=== PATIENT | female | born 1960 | race Caucasian/White ===

== ENCOUNTER → 2016-08-11 | Outpatient (CLI) | payer BC ==
[~2016-08-11] MED LIST: ACET-1256 PO; AGMUDL4005 PO; ASPEC325 PO; BETABLOCKER PO; CEPH500C PO; CHOL20009 PO; DABI150C PO; DILT120C68 PO; DOXY100C76 PO; METO100T14 PO; SULF800T23 PO; TRAM-10 PO
--- NOTE | 2016-08-12 14:33 | MAMMOGRAPHY REPORT ---
BILATERAL DIGITAL SCREENING MAMMOGRAM TOMOSYNTHESIS WITH CAD: 08/11/2016 CLINICAL HISTORY: Routine screening. Patient has no complaints. TECHNIQUE: Breast tomosynthesis in addition to standard 2D mammography was performed. Current study was also evaluated with a Computer Aided Detection (CAD) system. COMPARISON: Comparison is made to exams dated: 08/08/2015 mammogram, 08/06/2014 mammogram, 03/22/2013 mammogram, 03/18/2012 mammogram, 03/04/2010 mammogram, and 02/26/2009 mammogram - [facility]. BREAST COMPOSITION: The tissue of both breasts is almost entirely fatty. FINDINGS: No suspicious mass, architectural distortion or cluster of microcalcifications is seen. IMPRESSION: ACR BI-RADS CATEGORY 1: NEGATIVE There is no mammographic evidence of malignancy. A 1 year screening mammogram is recommended. The p atient will receive written notification of the results. Approximately 10% of breast cancers are not detected with mammography. A negative mammographic repor t should not delay biopsy if a clinically suggestive mass is present. Homa alcala/karen:08/11/2016 17:54:57 Case Packer And Sealer: Emma Rainey, [facility] letter sent: Normal 1/2 BI-RADS Code: ACR BI-RADS Category 1: Negative
== END | disposition home or self-care (01) ==
LOC: C.MAMM 10:09
PROVIDERS: ATTEND Obstetrics & Gynecology
DX: Z12.31 Encounter for screening mammogram for malignant neoplasm of breast (principal)

== ENCOUNTER 2016-12-30 10:47 | Emergency (ER) | payer BC ==
[~2016-12-30] VITALS: Ht 165.1 cm; Wt 141.1 kg
[~2016-12-30 10:47] MED LIST changes: -ACET-1256 PO; -AGMUDL4005 PO; -CEPH500C PO; -CHOL20009 PO; -DABI150C PO; -DILT120C68 PO; -DOXY100C76 PO; -METO100T14 PO; -SULF800T23 PO; -TRAM-10 PO
[2016-12-30 10:49] VITALS: TEMP 37.2; Ht 165.1 cm; Wt 141.1 kg
[2016-12-30 12:02] LABS: BASO % 0.1 %; BASO ABS # 0.01 K/uL (0-0.2); COMPLETE YES; EOS % 0.2 %; HEMATOCRIT 41.4 % (37-47); IG% 0.2 %; LYMPH % 7.8 %; LYMPH ABS # 0.67 K/uL (1.2-3.4); MEAN CORPUSCULAR HEMOGLOBIN 31.2 pg (25-34); MEAN CORPUSCULAR HGB CONC 33.6 g/dl (32-36); MEAN PLATELET VOLUME 9.8 fL (7.4-10.4); MONO % 7.6 %; NEUT % 84.1 %; PLATELET COUNT 206 K/uL (130-400); RED BLOOD COUNT 4.45 M/uL (4.2-5.4); WHITE BLOOD COUNT 8.58 K/uL (4.8-10.8)
[2016-12-30] MEDS ORDERED: ACET-1256 PO (12:06)
[2016-12-30] MEDS ORDERED: DILT120C68 PO (12:06)
[2016-12-30] MEDS ORDERED: METO100T14 PO (12:06)
[2016-12-30] MEDS ORDERED: DABI150C PO (12:06)
[2016-12-30] MEDS ORDERED: CHOL20009 PO (12:06)
[2016-12-30 12:13] LABS: INR 1.1 (0.9-1.1); PARTIAL THROMBOPLASTIN RATIO 1.2; PROTHROMBIN TIME (PATIENT) 11.8 SECONDS (9.0-12.0)
[2016-12-30 12:21] LABS: BUN/CREATININE RATIO 17.4 (10-20); CALCIUM 8.9 mg/dl (8.5-10.1); CREATININE 0.86 mg/dl (0.60-1.20); POTASSIUM 4.4 mmol/L (3.5-5.1)
--- NOTE | 2016-12-30 12:40 | DIAGNOSTIC IMAGING REPORT ---
LEFT LOWER EXTREMITY VENOUS DOPPLER HISTORY: left leg pain, swelling COMPARISON STUDY: None. FINDINGS: There is normal compressibility, flow, and augmentation within the visualized left lower extremity deep venous system. Of note, the calf vessels were not well visualized due to the patient's body habitus. A 3.6 x 1.8 x 1.2 cm popliteal cyst. IMPRESSION: No DVT within the visualized left lower extremity. Of note, the left calf vessels were not well visualized. Electronically signed by: Ajay Rodriguez M.D. 12/30/2016 12:39 PM Dictated Date/Time: 12/30/2016 12:38 PM
[2016-12-30 13:01] VITALS: BP 162/78; PULSE 90; O2SAT 98
[2016-12-30] MEDS ORDERED: CEPH500C PO (13:16)
[2016-12-30] MEDS ORDERED: SULF800T23 PO (13:16)
--- NOTE | 2016-12-30 13:16 | EMERGENCY ROOM VISIT NOTE ---
History First contact with patient: 11:33 Chief Complaint: LEG PAIN,LEG INJURY Stated Complaint: LEFT LEG PAIN History of Present Illness The patient is a 56 year old female who presents to the Emergency Room with complaints of left leg pain and swelling. The patient states that she has had pain, swelling and redness in her left lower leg since yesterday morning. She describes the pain as a burning sensation and states the leg is sore to touch. She typically has swelling in both of the legs due to lymphedema. She now has redness in the left leg which is new for her. She has a history of cellulitis and states this does feel similar. She was seen by [facility] and sent here to rule out DVT. She rates her discomfort an 8/10. She denies any chest pain, shortness of breath, fevers or chills. The patient denies any history of blood clots. She does not smoke. She denies recent travel or surgeries. She does take Pradaxa. Review of Systems A complete 10 point review of systems was reviewed with the patient with pertinent positives and negatives as per history of present illness. All else were negative. Social History Smoking Status: Never Smoker Alcohol Use: occasionally Drug Use: none Marital Status: single Occupation Status: employed Current/Historical Medications Scheduled Acetaminophen (Tylenol), 1,000 MG PO UD Cephalexin Monohydrate (Keflex), 500 MG PO QID Cholecalciferol (Vitamin D), 1 TAB PO HS Dabigatran Etexilate Mesylate (Pradaxa), 150 MG PO BID Diltiazem Hcl Ext Rel (Tiazac), 120 MG PO QAM Metoprolol Tartrate (Lopressor) (Lopressor), 100 MG PO BID Sulfa/Trimethoprim (Bactrim Ds 800MG/160MG), 1 TAB PO BID Physical Exam Vital Signs Date Time Temp Pulse Resp B/P (MAP) Pulse Ox O2 Delivery O2 Flow Rate FiO2 12/30/16 13:01 90 18 162/78 98 Room Air 12/30/16 10:49 37.2 91 18 155/100 96 Room Air Physical Exam VITALS: Vitals are noted on the nurse's note and reviewed by myself. Vital signs stable. GENERAL: This is a 56-year-old female, in no acute distress, nondiaphoretic, well-developed well-nourished. SKIN: Capillary refill less than 2 seconds. HEART: Regular rate and rhythm without murmurs gallops or rubs. LUNGS: Clear to auscultation bilaterally without wheezes, rales or rhonchi. No retractions or accessory muscle use. EXTREMITIES: There is moderate nonpitting edema to bilateral lower legs. There is erythema of the medial aspect of the left lower leg which is slightly warm to touch. No palpable cords. NEURO: Patient was alert and oriented to person place and time. Normal sensation to light and sharp touch. Medical Decision & Procedures ER Provider Diagnostic Interpretation: LEFT LOWER EXTREMITY VENOUS DOPPLER HISTORY: left leg pain, swelling COMPARISON STUDY: None. FINDINGS: There is normal compressibility, flow, and augmentation within the visualized left lower extremity deep venous system. Of note, the calf vessels were not well visualized due to the patient's body habitus. A 3.6 x 1.8 x 1.2 cm popliteal cyst. IMPRESSION: No DVT within the visualized left lower extremity. Of note, the left calf vessels were not well visualized. Laboratory Results 12/30/16 11:27 Red Blood Count 4.45, Mean Corpuscular Volume 93.0, Mean Corpuscular Hemoglobin 31.2, Mean Corpuscular Hemoglobin Concent 33.6, Mean Platelet Volume 9.8, Neutrophils (%) (Auto) 84.1, Lymphocytes (%) (Auto) 7.8, Monocytes (%) (Auto) 7.6, Eosinophils (%) (Auto) 0.2, Basophils (%) (Auto) 0.1, Neutrophils # (Auto) 7.21, Lymphocytes # (Auto) 0.67, Monocytes # (Auto) 0.65, Eosinophils # (Auto) 0.02, Basophils # (Auto) 0.01 12/30/16 11:27 Test 12/30/16 11:27 White Blood Count 8.58 K/uL (4.8-10.8) Red Blood Count 4.45 M/uL (4.2-5.4) Hemoglobin 13.9 g/dL (12.0-16.0) Hematocrit 41.4 % (37-47) Mean Corpuscular Volume 93.0 fL (80-100) Mean Corpuscular Hemoglobin 31.2 pg (25-34) Mean Corpuscular Hemoglobin Concent 33.6 g/dl (32-36) Platelet Count 206 K/uL (130-400) Mean Platelet Volume 9.8 fL (7.4-10.4) Neutrophils (%) (Auto) 84.1 % Lymphocytes (%) (Auto) 7.8 % Monocytes (%) (Auto) 7.6 % Eosinophils (%) (Auto) 0.2 % Basophils (%) (Auto) 0.1 % Neutrophils # (Auto) 7.21 K/uL (1.4-6.5) Lymphocytes # (Auto) 0.67 K/uL (1.2-3.4) Monocytes # (Auto) 0.65 K/uL (0.11-0.59) Eosinophils # (Auto) 0.02 K/uL (0-0.5) Basophils # (Auto) 0.01 K/uL (0-0.2) RDW Standard Deviation 43.3 fL (36.4-46.3) RDW Coefficient of Variation 12.8 % (11.5-14.5) Immature Granulocyte % (Auto) 0.2 % Immature Granulocyte # (Auto) 0.02 K/uL (0.00-0.02) Prothrombin Time 11.8 SECONDS (9.0-12.0) Prothromb Time International Ratio 1.1 (0.9-1.1) Activated Partial Thromboplast Time 31.2 SECONDS (21.0-31.0) Partial Thromboplastin Ratio 1.2 Anion Gap 5.0 mmol/L (3-11) Est Creatinine Clear Calc Drug Dose 102.0 ml/min Estimated GFR () 86.3 Estimated GFR (Non- 74.5 BUN/Creatinine Ratio 17.4 (10-20) Calcium Level 8.9 mg/dl (8.5-10.1) Chemistry Specimen Hemolysis Medical Decision Differential diagnosis includes DVT, superficial thrombosis, cellulitis, venous insufficiency, among others. The patient is a 56-year-old female who presents today complaining of left leg pain and redness. Labs revealed no leukocytosis. Ultrasound of the lower extremity showed no evidence of DVT. Of note, the calf veins were not well visualized. However, my clinical suspicion for DVT is low given that the patient has been taking her anticoagulant as prescribed. Exam is consistent with a cellulitis. Patient will be placed on Keflex and Bactrim. She was instructed to follow-up with her primary care provider next week to ensure resolution. If she is not improving at that time she may need a repeat ultrasound. She was encouraged to return here if she is worsening symptoms. Based on the patient's presentation and work up, I feel the patient is stable for outpatient treatment. The patient was educated to return to the emergency department for any worsening of their current condition or new/concerning symptoms. She will follow up with her PCP. The patient was independently evaluated by Dr. Sweeney, ED attending physician, who agreed with my assessment and treatment plan. Medication Reconcilliation Current Medication List: was personally reviewed by me Blood Pressure Screening Patient's blood pressure: Elevated blood pressure Blood pressure disposition: Elevated BP felt to be situational, Referred to PCP Impression Primary Impression: Left leg cellulitis Departure Information Dispostion Home / Self-Care Condition GOOD Prescriptions Sulfa/Trimethoprim (Bactrim Ds 800MG/160MG) Tab 1 TAB PO BID for 10 Days, #20 TAB Prov: Rachel Canchola PA-C 12/30/16 Cephalexin Monohydrate (Keflex) 500 Mg Cap 500 MG PO QID for 10 Days, #40 CAP Prov: Rachel Canchola PA-C 12/30/16 Referrals Cihlango Martinez M.D. (PCP) Patient Instructions My [facility] Additional Instructions You were prescribed Keflex to be taken 4 times daily as prescribed. This is an antibiotic. All antibiotics have the potential to cause diarrhea. Stop this medication and contact a medical provider if you were to develop any significant adverse side effects including: wheezing, shortness of breath, passing out, vomiting, or a diffuse rash. Always take antibiotics as directed and COMPLETE the ENTIRE course regardless of the improvement of your symptoms. You were prescribed Bactrim to be taken twice daily as prescribed. This is an antibiotic. All antibiotics have the potential to cause diarrhea. Stop this medication and contact a medical provider if you were to develop any significant adverse side effects including: wheezing, shortness of breath, passing out, vomiting, or a diffuse rash. Always take antibiotics as directed and COMPLETE the ENTIRE course regardless of the improvement of your symptoms. For pain control, you can use the following [id number] medicines (if >12 yo): - Regular strength (325mg/tab) Tylenol (acetaminophen) 2 tabs every 4-6 hours as needed. Do not exceed 12 tablets in a 24 hour period. Avoid taking more than 4 grams (4000 mg) of Tylenol per day. This includes any other sources of acetaminophen you may take on a regular basis. - Regular strength (200 mg/tab) Advil (ibuprofen) 1-2 tabs every 4-6 hours as needed. Do not exceed a dose of 3200 mg per day. Follow-up with your primary care provider in 48 hours for a recheck. Elevate the legs to help with swelling. Return to the emergency department with worsening redness, fevers, or any other new/concerning symptoms.
== END 2016-12-30 13:37 | disposition home or self-care (01) ==
LOC: C.EDB 10:51 → C.EDC 13:37
DX: L03.116 Cellulitis of left lower limb (principal); Z79.899 Other long term (current) drug therapy

== ENCOUNTER → 2017-02-01 | Outpatient (CLI) | payer BC ==
[~2017-02-01] MED LIST changes: +ACET-1256 PO; -ASPEC325 PO; -BETABLOCKER PO; +CHOL20009 PO; +DABI150C PO; +DILT120C68 PO; +METO100T14 PO
--- NOTE | 2017-02-01 15:28 | DIAGNOSTIC IMAGING REPORT ---
LEFT LOWER EXTREMITY VENOUS DOPPLER CLINICAL HISTORY: LEFT LEG PAIN,SWELLING,REDNESS,WARM COMPARISON STUDY: Left lower extremity venous Doppler December 30, 2016. TECHNIQUE: Sonography of the deep venous system of the left lower extremity was performed. Compression and augmentation were evaluated. FINDINGS: The left common femoral, superficial femoral and popliteal veins were compressible. Augmentation was normal. Flow was shown within the deep calf vessels although the calf vessels were suboptimally assessed on this exam. IMPRESSION: No evidence of deep venous thrombus within the left lower extremity although calf vessels suboptimally assessed. Electronically signed by: Gelacio Grove M.D. 02/01/2017 3:27 PM Dictated Date/Time: 02/01/2017 3:26 PM
== END | disposition home or self-care (01) ==
LOC: C.ULTRBC 14:54
PROVIDERS: ATTEND Physician Assistant Medical
DX: L03.90 Cellulitis, unspecified (principal)

== ENCOUNTER → 2017-02-08 | Outpatient (CLI) | payer BC ==
[~2017-02-08] MED LIST changes: +AGMUDL4005 PO; +DOXY100C76 PO
--- NOTE | 2017-02-08 15:35 | DIAGNOSTIC IMAGING REPORT ---
L FOOT MIN 3 VIEWS ROUTINE CLINICAL HISTORY: L03.90 Cellulitisleft COMPARISON: None. DISCUSSION: The bones are osteopenic. There are mild osteoarthritic changes the level the first metatarsal phalangeal joint. No fractures are visualized. There is a plantar calcaneal spur. No destructive lesions are evident. There is marked soft tissue swelling. IMPRESSION: Soft tissue swelling. No fractures identified. No conventional radiographic evidence of osteomyelitis. Electronically signed by: Inocente Alexander M.D. 02/08/2017 3:34 PM Dictated Date/Time: 02/08/2017 3:32 PM
--- NOTE | 2017-02-08 15:51 | DIAGNOSTIC IMAGING REPORT ---
L TIBIA/FIBULA 2 VIEWS ROUTINE CLINICAL HISTORY: L03.90 Cellulitisleft COMPARISON: None. DISCUSSION: No fractures are visualized. No destructive lesions are evident. There is soft tissue swelling. IMPRESSION: 1. No acute fractures 2. No conventional radiographic evidence of osteomyelitis. Electronically signed by: Inocente Alexander M.D. 02/08/2017 3:49 PM Dictated Date/Time: 02/08/2017 3:49 PM
--- NOTE | 2017-02-08 16:03 | DIAGNOSTIC IMAGING REPORT ---
L ANKLE MIN 3 VIEWS ROUTINE HISTORY: 56 years-old Female L03.90 Cellulitisleft acute left lower extremity swelling COMPARISON: Left foot and left tibia/fibula radiographs of same day TECHNIQUE: 3 views of the left ankle FINDINGS: Marked soft tissue swelling of the lower extremity. No acute fracture, dislocation or erosive changes to suggest osteomyelitis. At least mild degenerative changes of the tibiotalar joint. Prominent enthesophytes of the calcaneus. Moderate talonavicular osteoarthritis. Negative for opaque foreign body. Bones are mildly demineralized. IMPRESSION: 1. Marked soft tissue swelling of the lower extremity without acute bony abnormality. 2. Mild bone demineralization. 3. Degenerative changes of the hindfoot as above. The above report was generated using voice recognition software. It may contain grammatical, syntax or spelling errors. Electronically signed by: Mike Perez M.D. 02/08/2017 4:02 PM Dictated Date/Time: 02/08/2017 4:00 PM
== END | disposition home or self-care (01) ==
LOC: C.RAD 15:04
PROVIDERS: ATTEND Physician Assistant Medical
DX: L03.90 Cellulitis, unspecified (principal); M19.072 Primary osteoarthritis, left ankle and foot

== ENCOUNTER → 2017-03-18 | Outpatient (CLI) | payer BC ==
[~2017-03-18] MED LIST changes: -CHOL20009 PO; +GADAVIST IV PRN
--- NOTE | 2017-03-18 20:08 | DIAGNOSTIC IMAGING REPORT ---
LEFT LOWER LEG MRI HISTORY: Left lower leg cellulitis. Calf pain. Follow-up. TECHNIQUE: Multiplanar multisequence MRI of the left lower leg was performed both before and after the intravenous administration of contrast. COMPARISON STUDY: Left lower leg MRI 02/12/2017. FINDINGS: There is skin thickening and severe subcutaneous edema throughout the visualized left lower leg. There is also enhancement within the skin and subcutaneous edema/fat consistent with a diffuse cellulitis. No loculated fluid collections to suggest an abscess. Normal marrow signal intensity seen throughout the tibia and fibula. No evidence for osteomyelitis. Small fluid collection which is partially imaged adjacent to the proximal medial gastrocnemius muscle is consistent with a popliteal cyst. This remains unchanged. There is trace edema without significant enhancement between the medial gastrocnemius and soleus muscles. Otherwise, the deep fascial planes are within normal limits. Mild fatty atrophy of the lower leg muscles. No abnormal signal or enhancement within the muscles to suggest a myositis. Questionable increased signal within the gastrocnemius muscles remain stable. This may represent the patient's normal appearance and be related to underlying fatty atrophy. IMPRESSION: 1. Overall, no significant change in the diffuse severe cellulitis within the left lower leg. No loculated fluid collections to suggest an abscess. 2. No evidence for osteomyelitis. 3. Trace fluid between the medial gastrocnemius and soleus muscles, unchanged. This does not demonstrate peripheral enhancement. Otherwise, the remaining deep fascial planes and lower leg muscles are intact. 4. Partially imaged small popliteal cyst. Electronically signed by: Ajay Rodriguez M.D. 03/18/2017 8:07 PM Dictated Date/Time: 03/18/2017 7:57 PM
== END | disposition home or self-care (01) ==
LOC: C.MRI 17:11
PROVIDERS: ATTEND Internal Medicine Infectious Disease
DX: L03.90 Cellulitis, unspecified (principal)

== ENCOUNTER 2017-03-23 15:57 | Emergency (ER) | payer BC ==
[~2017-03-23] VITALS: Ht 165.1 cm; Wt 142.7 kg
[~2017-03-23 15:57] MED LIST changes: -GADAVIST IV PRN
[2017-03-23 16:09] VITALS: TEMP 36.8; Ht 165.1 cm; Wt 142.7 kg
--- NOTE | 2017-03-23 16:42 | EMERGENCY ROOM VISIT NOTE ---
History Report prepared by Elijah: Haseeb Suazo Under the Supervision of: Dr. Mago Lee D.O. First contact with patient: 16:19 Chief Complaint: INFECTION Stated Complaint: CELLULITIS Nursing Triage Summary: Pt reports cellulitis to left leg x 7 weeks. Has been taking multiple abx without relief, has not taken any for a couple weeks. MRI done last week. Red streaks began 2 days ago[address] Sent by Dr. Sears. History of Present Illness The patient is a 57 year old female who presents to the Emergency Room with complaints of worsening, left lower leg cellulitis beginning 7 weeks ago. She notes standing alleviates her pain. The patient states that she has been evaluated by Dr. Sears, ID. She reports she has tried IV antibiotics, Tylenol for pain, and elevating her leg. The patient notes nothing is helping. She states she had a repeat MRI performed 5 days ago, and it was consistent with her previous MRI. The patient reports her MRI showed severe cellulitis, but it is not in her bone. She notes she developed red streaks on her lower leg that were not there before, and her leg is swollen to the point where she cannot wear shoes. The patient denies fevers, vomiting, diarrhea, abdominal pain, and upper left leg pain. Review of EMR showed the patient had an MRI on March 18 that showed: no abscess, diffuse subcutaneous edema, no osteomyelitis, and a popliteal cyst. Source of History: patient Onset: 7 weeks ago Position: leg (left, lower) Symptom Intensity: severe Quality: other (cellulitis) Timing: worsening Modifying Factors (Relieving): other (standing) Associated Symptoms: + rash (red streaks to her left lower leg), No fevers, No vomiting, No abdominal pain, No diarrhea Note: Associated symptoms: leg swelling Denies: upper left leg pain Review of Systems See HPI for pertinent positives & negatives. A total of 10 systems reviewed and were otherwise negative. Past Medical & Surgical Medical Problems: (1) Heart disease (2) HTN (hypertension) (3) Skin problem Family History Diabetes mellitus Gallbladder disease Heart disease Hypertension Social History Smoking Status: Never Smoker Smokeless Tobacco Use: No Alcohol Use: occasionally Drug Use: none Marital Status: single Occupation Status: employed Current/Historical Medications Scheduled Acetaminophen (Tylenol), 1,000 MG PO UD Dabigatran Etexilate Mesylate (Pradaxa), 150 MG PO BID Diltiazem Hcl Ext Rel (Tiazac), 120 MG PO QAM Metoprolol Tartrate (Lopressor) (Lopressor), 100 MG PO BID Scheduled PRN Tramadol (Ultram), 1-2 TABS PO Q6H PRN for Pain Allergies Coded Allergies: Bacitracin (Unverified Allergy, Mild, HIVES, 03/23/17) Neomycin (Unverified Allergy, Mild, HIVES, 03/23/17) Polymyxin B (Unverified Allergy, Mild, HIVES, 03/23/17) Physical Exam Vital Signs Date Time Temp Pulse Resp B/P (MAP) Pulse Ox O2 Delivery O2 Flow Rate FiO2 03/23/17 20:08 59 18 147/92 98 03/23/17 19:39 59 18 147/92 98 Room Air 03/23/17 17:51 64 16 153/100 99 Room Air 03/23/17 16:09 36.8 78 20 157/88 97 Room Air Physical Exam GENERAL: alert, well appearing, well nourished, no distress, non-toxic, morbidly obese SKIN: no rashes and no bruising UPPER EXTREMITIES: upper extremities are grossly normal. LOWER EXTREMITIES: No pitting edema. Chronic bilateral lower extremity lymphedema. Several small areas of mild erythema due to taut skin from edema with slight cracking of skin. NEURO EXAM: Normal sensorium, cranial nerves II-XII grossly intact, normal speech, no gross weakness of arms, no gross weakness of legs. Medical Decision & Procedures Medications Administered Medications (Trade) Dose Ordered Sig/Rashida Route Start Time Stop Time Status Last Admin Dose Admin Tramadol HCl (Ultram Tab) 50 mg NOW STAT PO 03/23/17 17:01 03/23/17 17:02 DC 03/23/17 17:07 50 MG Tramadol HCl (Ultram Tab) 50 mg NOW STAT PO 03/23/17 18:32 03/23/17 18:33 DC 03/23/17 18:40 50 MG Acetaminophen/ Hydrocodone Bitart ([place] 5/325mg Home Pack) 1 homepack UD ONCE PO 03/23/17 20:00 03/23/17 20:01 DC 03/23/17 20:06 1 HOMEPACK ED Course 1622: The patient was evaluated in room C10. A complete history and physical exam was performed. 1639: I reevaluated the patient and updated her of her current exam findings. I also had an extensive bedside conversation regarding the treatment of the lymphedema. The patient has had outpatient ultrasounds and takes Pradaxa. 165: I discussed the patient's case with KAYLIE Juárez. She agrees with pain control and seeing the patient at an outpatient follow up. 1701: Ordered Tramadol HCl 50mg PO 1736: I reevaluated the patient and updated her of my consult with KAYLIE Juárez. 1830: I reevaluated the patient. The medication is not working for her discomfort. 1831: Ordered Tramadol HCl 50mg PO 193: Upon reevaluation, the patient is feeling better. I discussed the findings and the treatment plan with the patient. She verbalizes agreement and understanding. The patient will be discharged home when she receives her medication. 1999: Ordered Hydrocodone Bitart/Acetaminophen 1 homepack PO Medical Decision Differential diagnosis includes etiologies such as cellulitis, abscess, MRSA infection, DVT, necrotizing fasciitis, dermatitis, drug eruption, as well as others were entertained. Patient with no symptoms of acute active infection. Likely cellulitis an MRI is residual inflammation. Patient with no other secondary signs of infection. Patient takes Prudoxin daily and so I feel DVT is less likely. Patient's MRI is otherwise negative for abscess and osteomyelitis. Patient with a popliteal cyst which is likely contributing to swelling and pain also. Patient recently diagnosed with lymphedema and is arranged to go to physical therapy however feels the pain she is experiencing formula lymphedema is preventing this. Patient states the pain is also preventing her from being able to wear compression stockings to help lymphedema also. Discussed with infectious disease as precaution. I did not feel this time and they agreed the patient required repeat labs or antibiotics. Attempted to better control patient's pain so she could go and proceed with physical therapy and be fitted for compression stockings to help with her edema which is likely contributing to her pain. Discussed with patient giving her follow-up appointment with infectious disease, symptoms to watch and return for, she verbalized understanding was agreeable with plan. Consults Time Called: 1631 Consulting Physician: KAYLIE Juárez Returned Call: [phone] I discussed the patient's case with KAYLIE Juárez. She agrees with pain control and seeing the patient at an outpatient follow up. Impression Primary Impression: Pain of left lower extremity Additional Impression: Lymphedema Scribe Attestation The scribe's documentation has been prepared under my direction and personally reviewed by me in its entirety. I confirm that the note above accurately reflects all work, treatment, procedures, and medical decision making performed by me. Departure Information Dispostion Home / Self-Care Prescriptions Tramadol (Ultram) 50 Mg Tab 1-2 TABS PO Q6H Y for Pain, #14 TAB Prov: Mago Lee, DO 03/23/17 Referrals Chilango Martinez M.D. (PCP) Forms HOME CARE DOCUMENTATION FORM, IMPORTANT VISIT INFORMATION, WORK / SCHOOL INSTRUCTIONS Patient Instructions My [facility] Additional Instructions Please use the additional pain medication as needed. Please be cautious as it can make you dizzy or drowsy, do not take it and drive. Please keep your follow -up appointment with Dr. Sears on Wednesday. If you have any new redness or warmth , develop fevers, are unable to walk, noticed rashes or sores, or you have any other new concerns, please return the emergency room. Problem Qualifiers
[2017-03-23] MEDS ORDERED: TRAMADOL HCL 50 MG TAB PO STA ×2 (17:01→18:32)
[2017-03-23] MEDS ORDERED: TRAM-10 PO (19:54)
[2017-03-23] MEDS ORDERED: NORCO 5/325MG HOME PACK PO ONE (20:00)
[2017-03-23 20:08] VITALS: BP 147/92; PULSE 59; O2SAT 98
== END 2017-03-23 20:10 | disposition home or self-care (01) ==
LOC: C.EDB 15:59 → C.EDC 20:10
DX: M79.605 Pain in left leg (principal); I89.0 Lymphedema, not elsewhere classified; I11.0 Hypertensive heart disease with heart failure; Z79.01 Long term (current) use of anticoagulants; Z83.3 Family history of diabetes mellitus; Z82.49 Family history of ischemic heart disease and other diseases of the circulatory system; Z83.79 Family history of other diseases of the digestive system

== ENCOUNTER → 2017-08-13 | Outpatient (CLI) | payer BC ==
[~2017-08-13] MED LIST changes: -AGMUDL4005 PO; -DOXY100C76 PO; +TRAM-10 PO
--- NOTE | 2017-08-16 07:46 | MAMMOGRAPHY REPORT ---
BILATERAL DIGITAL SCREENING MAMMOGRAM TOMOSYNTHESIS WITH CAD: 08/13/2017 CLINICAL HISTORY: Routine screening. TECHNIQUE: Breast tomosynthesis in addition to standard 2D mammography was performed. Current study was also evaluated with a Computer Aided Detection (CAD) system. COMPARISON: Comparison is made to exams dated: 08/11/2016 mammogram, 08/08/2015 mammogram, 08/06/2014 m ammogram, 03/22/2013 mammogram, 03/18/2012 mammogram, and 03/06/2011 mammogram - [facility]. BREAST COMPOSITION: The tissue of both breasts is almost entirely fatty. FINDINGS: No suspicious masses, calcifications, or areas of architectural distortion are noted in ei ther breast. There has been no significant interval change compared to prior exams. IMPRESSION: ACR BI-RADS CATEGORY 1: NEGATIVE There is no mammographic evidence of malignancy. A 1 year screening mammogram is recommended. The pa tient will receive written notification of the results. Approximately 10% of breast cancers are not detected with mammography. A negative mammographic report should not delay biopsy if a clinically suggestive mass is present. Bertha You M.D. /:08/13/2017 09:48:16 Software Sales Consultant: Juan Jose POWERS([employer])(M), [facility] letter sent: Normal 1/2 BI-RADS Code: ACR BI-RADS Category 1: Negative
== END | disposition home or self-care (01) ==
LOC: C.MAMM 09:26
PROVIDERS: ATTEND Internal Medicine
DX: Z12.31 Encounter for screening mammogram for malignant neoplasm of breast (principal)

== ENCOUNTER 2023-11-10 13:19 | Inpatient (IN) ==
--- NOTE | 2023-11-10 13:28 | Emergency Department Note ---
Impression & Plan Sepsis, Atrial fibrillation with rapid ventricular response, Renal colic ED Provider Note NAME: MAHESH BOCANEGRA AGE: 63 SEX: F : 1960 ARRIVES VIA: Ambulance INFORMANT: Patient ED PROVIDER(S): Paolo Banda DO CHIEF COMPLAINT: flank pain HPI: Patient is a 63-year-old female with a past medical history of morbid obesity, lymphedema, hypertension, A-fib on Pradaxa who presents the ER for right flank pain which started suddenly earlier today. She notes that she did have some right back pain last night. Associated with nausea and vomiting. She been unable to keep anything down. She notes that when the pain became severe she became a little short of breath with it. Denies any headache or change in vision. No chest pain. No dysuria, urgency or frequency. No hematuria. She has never tried to pass a stone as she notes all of them are still up in her kidney. No other exacerbating or remitting factors. Additional history obtained from EMS and notes that they gave her Toradol and she had significant improvement of her pain. Pain does not change with twisting turning or bending. No fevers. ADDITIONAL HISTORY OBTAINED: Per HPI Chronic Medical/Social Conditions Affecting Care: Per HPI PAST MEDICAL HISTORY:See Below PAST SURGICAL HISTORY:See Below FAMILY HISTORY:See Below SOCIAL HISTORY:See Below HOME MEDICATIONS:See Below ALLERGIES:See Below VITALS:See Below PHYSICAL EXAMINATION: GENERAL: Sitting up in bed, alert, moderate distress holding right flank, morbidly obese EYE EXAM: normal conjunctiva. PERRL and EOM's grossly intact. OROPHARYNX: mucous membranes are moist NECK: supple, no nuchal rigidity, no adenopathy, non-tender LUNGS: Clear to auscultation. Normal chest wall mechanics HEART: Tachycardic and irregular regular, S1 normal and S2 normal ABDOMEN: abdomen soft, minimal tenderness in right flank, normo-active bowel sounds, no masses, no rebound or guarding. UPPER EXTREMITIES: upper extremities are grossly normal. LOWER EXTREMITIES: No pitting edema. NEURO EXAM: Normal sensorium, cranial nerves II-XII grossly intact, normal speech, no gross weakness of arms, no gross weakness of legs. MEDICAL DECISION MAKING: Patient is a 63-year-old female who presents the ER with a past medical history of A-fib for flank pain. She did not take any of her medications this morning. IV was established blood work is obtained. Labs show leukopenia 1.4 combination with no significant anemia. BMP with a creatinine of 1.4. LFTs and bilirubin were unremarkable. CT abdomen pelvis did eventually show a stone. Troponin was slightly elevated. Due to fever this is likely rate related initially. UA was eventually obtained and showed infection with bacteria leuks whites and positive nitrates. Patient was given 2 g of Rocephin as well as IV fluids. Her heart rate was trending up into the 140s intermittently the with her not taking her home medications and combination with the elevated heart rate she was given 1 dose of Lopressor. Following the positive UA Urology and hospitalist were contacted. Blood cultures, lactic acid were obtained as well as procal. Consults/Care Managements Discussions: Per [facility] Triage Nursing notes reviewed. Limited review of prior medical records performed Vital Signs: reviewed and remarkable for no significant abnormalities Differential diagnosis: Differential diagnoses includes but is not limited to gastritis, peptic ulcer disease, GERD, gallbladder disease, pancreatitis, small bowel obstruction, appendicitis, diverticulitis, hernia, urinary tract infection, torsion, /ectopic (if female), perforation, trauma, infectious. ER treatment provided: See below Diagnostics interpreted by me include EKG and cardiac monitoring as listed below: -Cardiac Monitoring: An order was placed for continuous cardiac monitoring. The monitor shows a rate of 135 with A-fib with RVR rhythm. -ECG: A-fib RVR rate of 114 Normal axis No PVCs QTc 430 -Laboratory studies:Interpreted by me as stated above in MDM and shown below. Imaging studies: Xrays: As interpreted by me: Portable AP upright 1 view of the chest shows no focal infiltrate CTs show: CT of the pelvis as described above Procedures: None Critical Care: I have personally spent 31 minutes of critical care time in the direct management of this patient. This includes bedside care, interpretation of diagnostic studies, and testing, discussion with consultants, patient, and family members, and other required patient management activities. This 31 minutes is in excess of all separately billable procedures. Past Med/Surg History Problem List (Updated 11/10/23 @ 18:02 by Paolo Banda DO) Renal colic (Acute) Atrial fibrillation with rapid ventricular response (Acute) Sepsis (Acute) Atrial fibrillation with RVR Sepsis UTI (urinary tract infection) Right ureteral calculus Hydronephrosis of right kidney Degenerative arthritis of knee, bilateral Lymphedema LE, stable per pt Left leg cellulitis (Acute) HTN (hypertension) (Chronic) History of cellulitis Skin problem (Chronic) Left leg cellulitis (Acute) Incontinence Hematuria Right ovarian cyst Ureterocele Preop testing Vitamin D deficiency (Acute) Anticoagulant long-term use (Acute) Encounter for pre-operative examination Encounter for screening for malignant neoplasm of colon Encounter for screening for malignant neoplasm of rectum Mixed incontinence Nephrolithiasis Hematuria, gross Impaired fasting glucose (Acute) A-fib Permanent, on pradaxa, monitored by PCP Medical History Morbid obesity with BMI of 50.0-59.9, adult History of COVID-19 03/2020 > symptoms at time of exhaustion, achiness > resolved Malignant melanoma of skin Kidney stones History of cellulitis hx of recurrent cellulitis/no issues x 1+ years on maintenance doxycycline Hypertension Surgical History History of cystoscopy Cystoscopy, urethral dilation, ureteral stone extraction, stent (01/15/20): MAC at [facility] History of dilatation and curettage D&C, hysteroscopy (03/13/19): Grade 1 view, Glidescope 3.0, ETT 7.0 at [facility] Melanoma s/p excision (RLE)-10-15 YRS AGO BCC (basal cell carcinoma of skin) s/p excision (arm) H/O tooth extraction History of surgery melanoma removal and skin graft right LE History of mandibular surgery No ROM limitations Hx of colonoscopy Family History Mother Diabetes Hypertension Grandfather Myocardial infarction Other No family history of adverse response to anesthesia Denies family history of Ovarian cancer Prostate cancer Breast cancer Colorectal cancer Social History (Updated 07/20/23 @ 16:10 by Lesley Miller LPN) Smoking Status: Former smoker Second Hand Exposure: No; Do You Dip or Chew Tobacco: No; Hx Alcohol Use: No Hx Substance Use: No Preferred Language: Estonian Communication Ability: Effective Visual Impairment: No Limitations Medical Housekeeper Required: No Beliefs That Will Affect Care: None marital status: Single Current Living Situation: Family current occupational status: employed 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 Feels Safe at Home: Yes Childhood Exposure to Second-Hand Smoke: No Diet: regular caffeine: Yes Dental Care, Regularly: Yes Seatbelt Use: always Sunscreen Use: Yes Assistive Devices: None Allergies Allergies Allergy/AdvReac Type Severity Reaction Status Date / Time bacitracin Allergy Intermediate Hives Verified 11/10/23 14:57 neomycin Allergy Intermediate Hives Verified 11/10/23 14:57 polymyxin B Allergy Intermediate Hives Verified 11/10/23 14:57 Home Meds Home Medications Medication Instructions Recorded Confirmed vit C,E,zinc,[id number] 250 1 cap PO QAM 02/28/19 11/10/23 mg-lutein 5 mg-zeaxanthin 1 mg capsule (Ocuvite Adult 50 Plus) metronidazole 0.75 % topical cream 1 applic topical BID PRN FLARE 11/10/23 11/10/23 Previous Rx's Medication Instructions Recorded doxycycline hyclate 100 mg capsule 100 mg PO QAM #90 caps 11/12/22 dabigatran etexilate 150 mg 150 mg PO BID #180 caps 02/10/23 capsule (Pradaxa) metoprolol tartrate 100 mg tablet 100 mg PO BID #180 tabs 02/10/23 cholecalciferol (vitamin D3) 50 50 mcg PO QAM #90 caps 02/23/23 mcg (2,000 unit) capsule (Vitamin D3) diltiazem HCl 120 mg 120 mg PO QAM #90 caps 05/10/23 capsule,extended release 24 hr vibegron 75 mg tablet (Gemtesa) 75 mg PO QPM #90 tabs 11/01/23 Results & Data (ED) Vital Signs Vital Signs - 24 hr 11/10/23 13:25 11/10/23 13:42 11/10/23 13:44 Temperature 36.8 C Temperature Source Temporal Artery Scan Pulse Rate 124 H 127 H 129 H Pulse Rate [Apical] Pulse Rate [Right Finger] Pulse Rate from SpO2 Sensor 124 H Pulse Rhythm [Apical] Pulse Rhythm [Right Finger] Respiratory Rate 20 27 H Respiratory Effort / Characteristics Non-Labored Spontaneous Respiratory Depth Normal Respiratory Pattern Blood Pressure 123/81 Blood Pressure [Left Arm] Blood Pressure Mean 95 Blood Pressure Mean [Left Arm] Blood Pressure Position [Left Arm] Pulse Oximetry 97 96 Oxygen Delivery Method Room Air Oxygen Flow Rate Sepsis Recent Fever Within 48 Hours No Sepsis New/Unexplained Change in Mental Status No Sepsis Action Taken by Nursing No Action Required 11/10/23 13:51 11/10/23 14:06 11/10/23 14:30 Temperature Temperature Source Pulse Rate 112 H 117 H 138 H Pulse Rate [Apical] Pulse Rate [Right Finger] Pulse Rate from SpO2 Sensor 116 H Pulse Rhythm [Apical] Pulse Rhythm [Right Finger] Respiratory Rate 26 H 24 24 Respiratory Effort / Characteristics Respiratory Depth Respiratory Pattern Blood Pressure Blood Pressure [Left Arm] Blood Pressure Mean Blood Pressure Mean [Left Arm] Blood Pressure Position [Left Arm] Pulse Oximetry 90 Oxygen Delivery Method Oxygen Flow Rate Sepsis Recent Fever Within 48 Hours Sepsis New/Unexplained Change in Mental Status Sepsis Action Taken by Nursing 11/10/23 14:42 11/10/23 14:54 11/10/23 14:56 Temperature Temperature Source Pulse Rate 127 H 119 H Pulse Rate [Apical] Pulse Rate [Right Finger] Pulse Rate from SpO2 Sensor 105 H 88 Pulse Rhythm [Apical] Pulse Rhythm [Right Finger] Respiratory Rate 28 H 28 H Respiratory Effort / Characteristics Respiratory Depth Respiratory Pattern Blood Pressure 100/69 Blood Pressure [Left Arm] Blood Pressure Mean 80 Blood Pressure Mean [Left Arm] Blood Pressure Position [Left Arm] Pulse Oximetry 94 93 Oxygen Delivery Method Oxygen Flow Rate Sepsis Recent Fever Within 48 Hours Sepsis New/Unexplained Change in Mental Status Sepsis Action Taken by Nursing 11/10/23 14:58 11/10/23 15:00 11/10/23 15:12 Temperature Temperature Source Pulse Rate 146 H 129 H 117 H Pulse Rate [Apical] Pulse Rate [Right Finger] Pulse Rate from SpO2 Sensor 114 H 103 H Pulse Rhythm [Apical] Pulse Rhythm [Right Finger] Respiratory Rate 23 24 Respiratory Effort / Characteristics Respiratory Depth Respiratory Pattern Blood Pressure 100/69 Blood Pressure [Left Arm] Blood Pressure Mean Blood Pressure Mean [Left Arm] Blood Pressure Position [Left Arm] Pulse Oximetry 95 96 Oxygen Delivery Method Oxygen Flow Rate Sepsis Recent Fever Within 48 Hours Sepsis New/Unexplained Change in Mental Status Sepsis Action Taken by Nursing 11/10/23 15:18 11/10/23 15:21 11/10/23 15:54 Temperature Temperature Source Pulse Rate 132 H 121 H Pulse Rate [Apical] Pulse Rate [Right Finger] Pulse Rate from SpO2 Sensor 122 H Pulse Rhythm [Apical] Pulse Rhythm [Right Finger] Respiratory Rate 37 H Respiratory Effort / Characteristics Respiratory Depth Respiratory Pattern Blood Pressure Blood Pressure [Left Arm] Blood Pressure Mean Blood Pressure Mean [Left Arm] Blood Pressure Position [Left Arm] Pulse Oximetry 95 Oxygen Delivery Method Room Air Oxygen Flow Rate Sepsis Recent Fever Within 48 Hours Sepsis New/Unexplained Change in Mental Status Sepsis Action Taken by Nursing 11/10/23 16:15 11/10/23 16:56 11/10/23 17:05 Temperature 37.1 C 37.7 C H Temperature Source Oral Temporal Artery Scan Temporal Artery Scan Pulse Rate Pulse Rate [Apical] 101 H 88 Pulse Rate [Right Finger] 113 H Pulse Rate from SpO2 Sensor Pulse Rhythm [Apical] Regular Regular Pulse Rhythm [Right Finger] Irregular Respiratory Rate 21 25 H 20 Respiratory Effort / Characteristics Non-Labored Spontaneous Non-Labored Spontaneous Non-Labored Spontaneous Respiratory Depth Normal Normal Normal Respiratory Pattern Regular Regular Regular Blood Pressure Blood Pressure [Left Arm] 91/53 L 113/44 L 67/45 L Blood Pressure Mean Blood Pressure Mean [Left Arm] 65 67 52 Blood Pressure Position [Left Arm] Semi-fowlers Lying Lying Pulse Oximetry 95 10 L 99 Oxygen Delivery Method Room Air Oxymask Oxymask Oxygen Flow Rate 10 10 Sepsis Recent Fever Within 48 Hours Sepsis New/Unexplained Change in Mental Status Sepsis Action Taken by Nursing 11/10/23 17:15 11/10/23 17:25 11/10/23 17:35 Temperature Temperature Source Temporal Artery Scan Temporal Artery Scan Temporal Artery Scan Pulse Rate Pulse Rate [Apical] 102 H 92 H 100 H Pulse Rate [Right Finger] Pulse Rate from SpO2 Sensor Pulse Rhythm [Apical] Regular Regular Regular Pulse Rhythm [Right Finger] Respiratory Rate 21 21 21 Respiratory Effort / Characteristics Non-Labored Spontaneous Non-Labored Spontaneous Non-Labored Spontaneous Respiratory Depth Normal Normal Normal Respiratory Pattern Regular Regular Regular Blood Pressure Blood Pressure [Left Arm] 67/35 L 76/47 L 76/53 L Blood Pressure Mean Blood Pressure Mean [Left Arm] 45 56 60 Blood Pressure Position [Left Arm] Lying Lying Lying Pulse Oximetry 99 100 100 Oxygen Delivery Method Oxymask Oxymask Oxymask Oxygen Flow Rate 4 4 4 Sepsis Recent Fever Within 48 Hours Sepsis New/Unexplained Change in Mental Status Sepsis Action Taken by Nursing Laboratory Data 11/10/23 13:53 11/10/23 13:53 Lab Results 11/10/23 11/10/23 11/10/23 Range/Units 13:53 15:08 15:49 WBC 1.42 L (4.8-10.8) K/ul RBC 4.63 (4.20-5.40) M/uL Hgb 13.8 (12.0-16.0) g/dl Hct 43.8 (37.0-47.0) % MCV 94.6 (80.0-100.0) fL MCH 29.8 (25.0-34.0) pg MCHC 31.5 L (32.0-36.0) g/dL RDW Std Deviation 49.2 H (36.4-46.3) fL RDW Coeff of Sujey 14.1 (11.5-14.5) % Plt Count 135 (130-400) K/uL MPV 10.3 (9.4-12.4) fL Immature Gran % (Auto) 2.1 % Neut % (Auto) 88.8 % Lymph % (Auto) 7.7 % [place] % (Auto) 0.7 % Eos % (Auto) 0.0 % Baso % (Auto) 0.7 % Neut # (Auto) 1.26 L (1.40-6.50) K/uL Lymph # (Auto) 0.11 L (1.20-3.40) K/uL [place] # (Auto) 0.01 L (0.11-0.59) K/uL Eos # (Auto) 0.00 (0.00-0.50) K/uL Baso # (Auto) 0.01 (0.00-0.20) K/uL Immature Gran # (Auto) 0.03 (0.01-0.20) K/uL Toxic Vacuolation 2+ Polychromasia 1+ Echinocytes 2+ Sodium 140 (136-145) mmol/L Potassium 4.3 (3.5-5.1) mmol/L Chloride 106 (98-107) mmol/L Carbon Dioxide 26 (21-32) mmol/L Anion Gap 8 (3-11) BUN 24 H (6-23) mg/dl Creatinine 1.46 H (0.6-1.2) mg/dl Est Cr Clr Drug Dosing 63.7 ml/min Est GFR ( Amer) 43.3 ml/min Est GFR (Non-Af Amer) 37.4 ml/min BUN/Creatinine Ratio 16.4 (10-20) Glucose 85 (70-99(Fasting)) mg/dl Lactate 5.3 H* (0.4-2.0) mmol/L Calcium 9.2 (8.6-10.3) mg/dl Total Bilirubin 2.3 H (0.2-1.0) mg/dl AST 21 (13-39) U/L ALT 11 (7-52) U/L Alkaline Phosphatase 122 H (34-104) U/L Troponin I High Sens 58.9 H* 344.6 H* D (0-14) pg/ml Total Protein 6.3 (6.0-8.3) gm/dl Albumin 3.7 (3.4-5.0) gm/dl Globulin 2.6 (2.5-4.0) gm/dl Albumin/Globulin Ratio 1.4 (0.9-2) Lipase 5 L (11-82) U/L Procalcitonin 1.89 H (0-0.5) ng/ml Urine Color Urine Appearance (Clear) Urine pH (4.5-7.5) Ur Specific [place] (1.000-1.030) Urine Protein (Negative) Urine Glucose (UA) (Negative) Urine Ketones (Negative) Urine Blood (Negative) Urine Nitrite (Negative) Urine Bilirubin (Negative) Urine Urobilinogen (Negative) Ur Leukocyte Esterase (Negative) Urine WBC (Auto) (0-5) /hpf Urine RBC (Auto) (0-2) /hpf U Hyaline Cast (Auto) (0-2) /lpf U Epithel Cells (Auto) (0-2) /hpf Urine Bacteria (Auto) (None Seen) 11/10/23 Range/Units Unknown WBC (4.8-10.8) K/ul RBC (4.20-5.40) M/uL Hgb (12.0-16.0) g/dl Hct (37.0-47.0) % MCV (80.0-100.0) fL MCH (25.0-34.0) pg MCHC (32.0-36.0) g/dL RDW Std Deviation (36.4-46.3) fL RDW Coeff of Sujey (11.5-14.5) % Plt Count (130-400) K/uL MPV (9.4-12.4) fL Immature Gran % (Auto) % Neut % (Auto) % Lymph % (Auto) % [place] % (Auto) % Eos % (Auto) % Baso % (Auto) % Neut # (Auto) (1.40-6.50) K/uL Lymph # (Auto) (1.20-3.40) K/uL [place] # (Auto) (0.11-0.59) K/uL Eos # (Auto) (0.00-0.50) K/uL Baso # (Auto) (0.00-0.20) K/uL Immature Gran # (Auto) (0.01-0.20) K/uL Toxic Vacuolation Polychromasia Echinocytes Sodium (136-145) mmol/L Potassium (3.5-5.1) mmol/L Chloride (98-107) mmol/L Carbon Dioxide (21-32) mmol/L Anion Gap (3-11) BUN (6-23) mg/dl Creatinine (0.6-1.2) mg/dl Est Cr Clr Drug Dosing ml/min Est GFR ( Amer) ml/min Est GFR (Non-Af Amer) ml/min BUN/Creatinine Ratio (10-20) Glucose (70-99(Fasting)) mg/dl Lactate (0.4-2.0) mmol/L Calcium (8.6-10.3) mg/dl Total Bilirubin (0.2-1.0) mg/dl AST (13-39) U/L ALT (7-52) U/L Alkaline Phosphatase (34-104) U/L Troponin I High Sens (0-14) pg/ml Total Protein (6.0-8.3) gm/dl Albumin (3.4-5.0) gm/dl Globulin (2.5-4.0) gm/dl Albumin/Globulin Ratio (0.9-2) Lipase (11-82) U/L Procalcitonin (0-0.5) ng/ml Urine Color [place] Urine Appearance Cloudy A (Clear) Urine pH 6.0 (4.5-7.5) Ur Specific [place] 1.014 (1.000-1.030) Urine Protein 2+ H (Negative) Urine Glucose (UA) Negative (Negative) Urine Ketones Negative (Negative) Urine Blood 3+ H (Negative) Urine Nitrite Positive A (Negative) Urine Bilirubin Negative (Negative) Urine Urobilinogen Negative (Negative) Ur Leukocyte Esterase 3+ H (Negative) Urine WBC (Auto) >50 H (0-5) /hpf Urine RBC (Auto) >20 H (0-2) /hpf U Hyaline Cast (Auto) 3-5 H (0-2) /lpf U Epithel Cells (Auto) 0-2 (0-2) /hpf Urine Bacteria (Auto) 4+ H (None Seen) Administered Medications Discontinued Medications Ceftriaxone Sodium (Rocephin) 2,000 mg in 50 mls @ 100 mls/hr IV NOW STA Stop: 11/10/23 15:17 Last Admin: 11/10/23 14:58 Dose: 100 mls/hr Documented By: HS Sodium Chloride (Nss) 1,000 mls @ 999 mls/hr IV .Q1H1M ONE Stop: 11/10/23 16:03 Last Admin: 11/10/23 15:08 Dose: 999 mls/hr Documented By: HS Lactated Ringer's (Lr) 1,000 mls @ 999 mls/hr IV .Q1H1M ONE Stop: 11/10/23 16:27 Last Admin: 11/10/23 16:18 Dose: 999 mls/hr Documented By: DS Metoprolol Tartrate (Metoprolol Tartrate 1 Mg/Ml Vial) 5 mg IV NOW STA Stop: 11/10/23 14:55 Last Admin: 11/10/23 14:58 Dose: 5 mg Documented By: HS Morphine Sulfate (Morphine Sulfate 2 Mg/Ml Carp) 2 mg IV NOW STA Stop: 11/10/23 13:27 Last Admin: 11/10/23 13:52 Dose: 2 mg Documented By: HS Morphine Sulfate (Morphine Sulfate 4 Mg/Ml 1 Ml Carp\Vial) 4 mg IV NOW STA Stop: 11/10/23 14:48 Last Admin: 11/10/23 14:58 Dose: Not Given Documented By: HS Ondansetron HCl (Ondansetron Inj 2 Mg/Ml 2 Ml Vial) 4 mg IV NOW STA Stop: 11/10/23 13:26 Last Admin: 11/10/23 13:52 Dose: 4 mg Documented By: HS Phenylephrine HCl (Phenylephrine 100mcg/Ml 5ml Syr) 100 mcg IV Q5M PRN PRN Reason: PACU Use Only-SBP<90 or HR>70 Stop: 11/11/23 00:09 Last Admin: 11/10/23 17:35 Dose: 100 mcg Documented By: ANGELICA Co-signed By: SANFORD Admin: 11/10/23 17:29 Dose: 100 mcg Documented By: ANGELICA Co-signed By: SANFORD Imaging Data Radiologist's Impression: Retrograde Pyelogram 11/10/23 00:00 FL retrograde includes kub CLINICAL HISTORY: CYSTO COMPARISON STUDY: None. FLUOROSCOPY TIME: 8 seconds. FLUOROSCOPY IMAGES: 2 Ka,r: 5.4 mGy FINDINGS: Retrograde opacification of right renal collecting system was performed with placement of a right ureteral stent. Only the proximal portion of the stent is identified but appears in good position IMPRESSION: Fluoroscopic assistance as above ACT 112: Negative or not required by law. Electronically signed by: Ajay Rodriguez M.D. 11/10/2023 5:05 PM Abdomen/Pelvis CT 11/10/23 13:[address] WITHOUT CONTRAST CT DOSE: 1712.73 mGy.cm HISTORY: r flank pain TECHNIQUE: Multiaxial CT images of the abdomen and pelvis were performed without contrast. A dose lowering technique was utilized adhering to the principles of ALARA. COMPARISON STUDY: Abdomen and pelvis CT 08/18/2022. FINDINGS: The lung bases are clear. No pneumoperitoneum. No pneumatosis. Bilateral L5 spondylolysis. No acute fractures. The heart is mildly enlarged. The unenhanced liver, spleen, adrenal glands, and pancreas are unremarkable. No retroperitoneal lymphadenopathy. Normal gallbladder. Normal caliber abdominal aorta. No pelvic lymphadenopathy or pelvic free fluid. The bladder, uterus, left ovary are unremarkable. There is again noted a 6.2 cm right ovarian lesion. Stable compared to the prior study. Suboptimal evaluation for bowel pathology due to the lack of intravenous and oral contrast. However, there is no definite bowel wall thickening or obstruction. Normal appendix. A few colonic diverticula. No evidence for acute diverticulitis. There is a punctate stone within the left kidney. There is moderate to severe right hydronephrosis secondary to an obstructing 7 mm stone within the right ureteropelvic junction. Right perinephric and periureteral edema is likely due to the obstruction. No left-sided hydronephrosis or left ureteral calculi. IMPRESSION: 1. A 7 mm obstructing stone within the right ureteropelvic junction resulting in moderate to severe right hydronephrosis. 2. Left-sided nephrolithiasis. 3. No bowel wall thickening or obstruction. 4. Stable 6.2 cm right ovarian lesion. This is considered to be pathologic in a postmenopausal female despite the stability. Gynecologic consultation recommended. 5. Additional findings as described above. ACT 112: Negative or not required by law. Electronically signed by: Ajay Rodriguez M.D. 11/10/2023 2:20 PM Chest X-Ray 11/10/23 13:28 XR chest 1V portable HISTORY: 63 years-old Female r flank pain acute shortness of breath with right- sided flank pain COMPARISON: CT of same day TECHNIQUE: AP view of the chest FINDINGS: Cardiac silhouette is enlarged. No pneumothorax, pleural effusion or pulmonary edema. Mild right hemidiaphragmatic elevation. Bones appear intact. Atherosclerosis of the aorta. IMPRESSION: Cardiomegaly without acute process. ACT 112: Negative or not required by law. The above report was generated using voice recognition software. It may contain grammatical, syntax or spelling errors. Electronically signed by: Steven Perez M.D. 11/10/2023 2:36 PM Discharge Plan Visit Data Chief Complaint: Flank Pain Stated Complaint: R FLANK PAIN ED Provider: Paolo Banda Discharge Problem: Sepsis, Atrial fibrillation with rapid ventricular response, Renal colic Patient Disposition: Admitted As Inpatient Discharge Instructions Interventions: ED Discharge Assessment Last Done: 11/10/23 15:54 Forms Stand Alone Forms: [facility] [employer] Prescriptions Prescriptions: No Action doxycycline hyclate 100 mg capsule 100 mg PO QAM Qty: 90 3RF dabigatran etexilate [Pradaxa] 150 mg capsule 150 mg PO BID Qty: 180 3RF metoprolol tartrate 100 mg tablet 100 mg PO BID Qty: 180 3RF cholecalciferol (vitamin D3) [Vitamin D3] 50 mcg (2,000 unit) capsule 50 mcg PO QAM Qty: 90 3RF diltiazem HCl 120 mg capsule,extended release 24hr 120 mg PO QAM Qty: 90 3RF Gemtesa 75 mg tablet 75 mg PO QPM Qty: 90 3RF Ocuvite Adult 50 Plus 250-5-1 mg Capsule 1 cap PO QAM metronidazole 0.75 % cream 1 applic TOPICAL BID PRN (Reason: FLARE) Referrals Referrals: Angelita Cazares CRNP [Primary Care Provider] - Discharge Problem: Sepsis Qualifiers: Sepsis type: sepsis due to unspecified organism Sepsis acute organ dysfunction status: unspecified Qualified Code(s): A41.9 - Sepsis, unspecified organism
[2023-11-10] MEDS: MoRPHine SULFATE 2 MG/ML CARP IV STA (13:52)
[2023-11-10] MEDS: ONDANSETRON INJ 2 MG/ML 2 ML VIAL IV STA (13:52)
[2023-11-10 14:09] LABS: Hematocrit (blood only) 43.8 % (37.0-47.0); Hemoglobin 13.8 g/dl (12.0-16.0); Mean Corpuscular Hemoglobin 29.8 pg (25.0-34.0); Mean Corpuscular Hgb Conc 31.5 g/dL (32.0-36.0); Mean Corpuscular Volume 94.6 fL (80.0-100.0); Mean Platelet Volume 10.3 fL (9.4-12.4); Platelet Count 135 K/uL (130-400); RDW Coefficient of Variation 14.1 % (11.5-14.5); RDW Standard Deviation 49.2 fL (36.4-46.3); Red Blood Count 4.63 M/uL (4.20-5.40); White Blood Count 1.42 K/ul (4.8-10.8)
--- NOTE | 2023-11-10 14:21 | CT Scan Report ---
ABDOMEN AND PELVIS CT WITHOUT CONTRAST CT DOSE: 1712.73 mGy.cm HISTORY: r flank pain TECHNIQUE: Multiaxial CT images of the abdomen and pelvis were performed without contrast. A dose lo wering technique was utilized adhering to the principles of ALARA. COMPARISON STUDY: Abdomen and pelvis CT 08/18/2022. FINDINGS: The lung bases are clear. No pneumoperitoneum. No pneumatosis. Bilateral L5 spondylolysis. No acute fractures. The heart is mildly enlarged. The unenhanced liver, spleen, adrenal glands, and p ancreas are unremarkable. No retroperitoneal lymphadenopathy. Normal gallbladder. Normal caliber abdo nehemiah aorta. No pelvic lymphadenopathy or pelvic free fluid. The bladder, uterus, left ovary are unre markable. There is again noted a 6.2 cm right ovarian lesion. Stable compared to the prior study. Sub optimal evaluation for bowel pathology due to the lack of intravenous and oral contrast. However, the re is no definite bowel wall thickening or obstruction. Normal appendix. A few colonic diverticula. N o evidence for acute diverticulitis. There is a punctate stone within the left kidney. There is moder ate to severe right hydronephrosis secondary to an obstructing 7 mm stone within the right ureteropel herman junction. Right perinephric and periureteral edema is likely due to the obstruction. No left-side d hydronephrosis or left ureteral calculi. IMPRESSION: 1. A 7 mm obstructing stone within the right ureteropelvic junction resulting in moderate to severe r ight hydronephrosis. 2. Left-sided nephrolithiasis. 3. No bowel wall thickening or obstruction. 4. Stable 6.2 cm right ovarian lesion. This is considered to be pathologic in a postmenopausal female despite the stability. Gynecologic consultation recommended. 5. Additional findings as described above. ACT 112: Negative or not required by law. Electronically signed by: Ajay Rodriguez M.D. 11/10/2023 2:20 PM
[2023-11-10 14:22] LABS: Albumin Globulin Ratio 1.4 (0.9-2); Albumin Level 3.7 gm/dl (3.4-5.0); BUN Creatinine Ratio 16.4 (10-20); Bilirubin,Total 2.3 mg/dl (0.2-1.0); Calcium 9.2 mg/dl (8.6-10.3); Creatinine Clr Calc Pharmacy 63.7 ml/min; Est GFR (African American) 43.3 ml/min; Est GFR (Non-African American) 37.4 ml/min; Globulin 2.6 gm/dl (2.5-4.0); Potassium 4.3 mmol/L (3.5-5.1); Total Protein 6.3 gm/dl (6.0-8.3)
[2023-11-10 14:31] LABS: Troponin I High Sensitivity 58.9 pg/ml (0-14)
--- NOTE | 2023-11-10 14:37 | XRay Report ---
XR chest 1V portable HISTORY: 63 years-old Female r flank pain acute shortness of breath with right-sided flank pain COMPARISON: CT of same day TECHNIQUE: AP view of the chest FINDINGS: Cardiac silhouette is enlarged. No pneumothorax, pleural effusion or pulmonary edema. Mild right debo diaphragmatic elevation. Bones appear intact. Atherosclerosis of the aorta. IMPRESSION: Cardiomegaly without acute process. ACT 112: Negative or not required by law. The above report was generated using voice recognition software. It may contain grammatical, syntax o r spelling errors. Electronically signed by: Steven Perez M.D. 11/10/2023 2:36 PM
[2023-11-10 14:41] LABS: Basophils # (auto) 0.01 K/uL (0.00-0.20); Basophils % (auto) 0.7 %; Echinocytes 2+; Immature Granulocytes # (auto) 0.03 K/uL (0.01-0.20); Immature Granulocytes % (auto) 2.1 %; Lymphocytes # (auto) 0.11 K/uL (1.20-3.40); Lymphocytes % (auto) 7.7 %; Monocytes # (auto) 0.01 K/uL (0.11-0.59); Monocytes % (auto) 0.7 %; Neutrophils # (auto) 1.26 K/uL (1.40-6.50); Neutrophils % (auto) 88.8 %; Polychromasia 1+; Toxic Vacuolation 2+
[2023-11-10 14:55] LABS: Appearance Urine Cloudy (Clear); Bacteria Urine Automated 4+ (None Seen); Bilirubin Urine Negative (Negative); Blood Urine 3+ (Negative); Color Urine Orange; Epithelial Cell Urine Auto 0-2 /hpf (0-2); Glucose Urine UA Negative (Negative); Ketones Urine Negative (Negative); Leukocyte Esterase Urine 3+ (Negative); Nitrite Urine Positive (Negative); Protein Urine 2+ (Negative); RBC Urine Automated >20 /hpf (0-2); Specific Gravity Urine 1.014 (1.000-1.030); Urobilinogen Urine Negative (Negative); WBC Urine Automated >50 /hpf (0-5)
[2023-11-10] MEDS: MoRPHine SULFATE 4 MG/ML 1 ML CARP\\VIAL IV STA (14:58)
[2023-11-10] MEDS: METOPROLOL TARTRATE 1 MG/ML VIAL IV STA (14:58)
[2023-11-10] MEDS: cefTRIAXone SODIUM 2,000 MG/50 ML BAG IV STA (14:58)
[2023-11-10] MEDS: SODIUM CHLORIDE 0.9% 1,000 ML IV ONE (15:08)
--- NOTE | 2023-11-10 15:12 | Urology Consultation ---
Date of Consultation November 10, 2023 Assessment & Plan (1) Hydronephrosis of right kidney: (2) Right ureteral calculus: Plan Urology consulted for right UPJ stone with associated hydronephrosis and concerns for infection She is is afebrile, tachycardic, normotensive Urine cultures are pending but UA looks suspicious for an infection Currently denying pain or nausea or vomiting Labs today indicate no leukocytosis, elevated creatinine- KENYON Discussed cystoscopy and stent placement due to suspicion of an infection in setting of obstructing stone, tachycardia, and meeting sepsis criteria. Ureteral stents were discussed as well as postoperative issues and pain management. Risks and benefits were discussed. All questions were answered. Will proceed urgently with cystoscopy, right retrograde pyelogram, right ureteral stent placement given clinical picture concering for sepsis. Risks and benefits to be reviewed with patient by Dr. García. OR notified, patient added on IV ceftriaxone preoperatively Keep NPO, she last had sip of Coke/licorice at approximately noon Urology will follow She is aware a second procedure would be needed for stone treatment. Supervising Physician Co-Signing Physician Notes Discussed patient with MICHAEL. Agree with plan. Reviewed patient's chart. Obstructing right ureteral calculus with suspected infection. Tachycardic. Will forego n.p.o. due to urgency of case. 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 Consent obtained, patient marked. History of Present Illness History of Present Illness 63-year-old female who came in for right flank pain. Past medical history of morbid obesity, lymphadenopathy. Right flank pain started suddenly earlier today with associated nausea and vomiting, unable to keep any intake down. CT of the A/P shows a 7 mm obstructing stone within the right UPJ resulting in moderate to severe right-sided hydronephrosis Labs reviewed: 11/10/2023 Lactate 5.3 WBCs 1.42 Creatinine 1.46 Hemoglobin 13.8 Glucose 85 UAS showed 2+ protein, 3+ blood, positive nitrates, 3+ leukocyte Estrace, greater than 50 RBCs, greater than 20 RBCs, 4+ bacteria Urine culture is pending Patient has a long history of nephrolithiasis with surgical intervention. She was having right flank pain earlier today with associated nausea and vomiting. She was also admitting to chills, but denied fevers. She was voiding spontaneously without any changes to her baseline urinary symptoms including urinary retention or urinary frequency, gross hematuria or dysuria prior to coming to the ER. A Coburn catheter was placed when she came to the ER. She is currently denying abdominal or flank pain, fevers, chills, nausea, vomiting. 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 Allergies Allergy/AdvReac Type Severity Reaction Status Date / Time bacitracin Allergy Intermediate Hives Verified 11/10/23 14:57 neomycin Allergy Intermediate Hives Verified 11/10/23 14:57 polymyxin B Allergy Intermediate Hives Verified 11/10/23 14:57 Home Medications Medication Instructions Recorded Confirmed Type vit C,E,zinc,copper-[id number] 250 1 cap PO QAM 02/28/19 11/10/23 History mg-lutein 5 mg-zeaxanthin 1 mg capsule (Ocuvite Adult 50 Plus) doxycycline hyclate 100 mg capsule 100 mg PO QAM #90 caps 11/12/22 11/10/23 Rx dabigatran etexilate 150 mg 150 mg PO BID #180 caps 02/10/23 11/10/23 Rx capsule (Pradaxa) metoprolol tartrate 100 mg tablet 100 mg PO BID #180 tabs 02/10/23 11/10/23 Rx cholecalciferol (vitamin D3) 50 50 mcg PO QAM #90 caps 02/23/23 11/10/23 Rx mcg (2,000 unit) capsule (Vitamin D3) diltiazem HCl 120 mg 120 mg PO QAM #90 caps 05/10/23 11/10/23 Rx capsule,extended release 24 hr vibegron 75 mg tablet (Gemtesa) 75 mg PO QPM #90 tabs 11/01/23 11/10/23 Rx metronidazole 0.75 % topical cream 1 applic topical BID PRN FLARE 11/10/23 11/10/23 History Patient History Medical History Morbid obesity with BMI of 50.0-59.9, adult History of COVID-19 03/2020 > symptoms at time of exhaustion, achiness > resolved Malignant melanoma of skin Kidney stones History of cellulitis hx of recurrent cellulitis/no issues x 1+ years on maintenance doxycycline Hypertension Surgical History History of cystoscopy Cystoscopy, urethral dilation, ureteral stone extraction, stent (01/15/20): MAC at [facility] History of dilatation and curettage D&C, hysteroscopy (03/13/19): Grade 1 view, Glidescope 3.0, ETT 7.0 at [facility] Melanoma s/p excision (RLE)-10-15 YRS AGO BCC (basal cell carcinoma of skin) s/p excision (arm) H/O tooth extraction History of surgery melanoma removal and skin graft right LE History of mandibular surgery No ROM limitations Hx of colonoscopy Family History Mother Diabetes Hypertension Grandfather Myocardial infarction Other No family history of adverse response to anesthesia Denies family history of Ovarian cancer Prostate cancer Breast cancer Colorectal cancer Social History (Updated 07/20/23 @ 16:10 by Lesley Miller LPN) Smoking Status: Former smoker Second Hand Exposure: No; Do You Dip or Chew Tobacco: No; Hx Alcohol Use: No Hx Substance Use: No Preferred Language: Turkmen Communication Ability: Effective Visual Impairment: No Limitations Primary Teacher Required: No Beliefs That Will Affect Care: None marital status: Single Current Living Situation: Family current occupational status: employed 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 Feels Safe at Home: Yes Childhood Exposure to Second-Hand Smoke: No Diet: regular caffeine: Yes Dental Care, Regularly: Yes Seatbelt Use: always Sunscreen Use: Yes Assistive Devices: None Review of Systems Constitutional: as per Subjective / HPI Genitourinary: as per Subjective / HPI Physical Exam Constitutional: well developed, well nourished and + obese Respiratory: normal respiratory effort and able to speak in complete sentences Musculoskeletal: Extremities: + limited ROM of extremities Psychiatric: Orientation: alert and oriented x 3 Genitourinary: Coburn catheter draining clear yellow Results & Data Vital Signs (Past 12 Hours) Vital Signs Temp Pulse Resp BP Pulse Ox O2 Del Method 11/10/23 14:58 146 H 100/69 11/10/23 13:44 129 H 11/10/23 13:25 36.8 C 124 H 20 123/81 97 Room Air PG Care Time/CCT Total # of Minutes Spent Total Time Spent with Patient: Total time spent is greater than 50% in coordination of care (as documented) at patient's floor/unit and/or counseling patient: Coding Level of Care Code 49843 INT INP/OBS CARE MIN Diagnoses Hydronephrosis of right kidney N13.30 Right ureteral calculus N20.1
--- NOTE | 2023-11-10 15:31 | History & Physical Report ---
Date of Service November 10, 2023 Assessment & Plan (1) Sepsis: Plan: SIRS criteria with low WBC and tachycardia (although latter somewhat secondary to missing her morning meds in atrial fibrillation) Source - UTI with obstructing ureterolithiasis, urology to place ureteral stent Lactate pending, ideal body weight sepsis bolus 1650ml, currently receiving first NSS bolus, will give additional LR 1L bolus prior to further rate control of atrial fibrillation Empiric ceftriaxone based on prior cultures Follow up urine and blood cultures (latter notably taken after antibiotics given) (2) Right ureteral calculus: Plan: Consult urology - discussed with Zohra Olmos and planning on taking to OR appropriately for stent insertion (3) Atrial fibrillation with RVR: Plan: Inappropriate rate response secondary to missing morning medications + appropriate rate response to sepsis Will re-hydrate first prior to furtherrate control, utilize metoprolol 5mg IV q2h PRN for HR > 140 until restarting her usual metoprolol 100mg PO BID tonight once stent is inserted with hold if sBP < 90 Restart on her usual diltiazem tomorrow morning with hold if sBP < 90 (4) UTI (urinary tract infection): Plan VTE Prophyalxis - dabigatran 150mg PO BID Diet - NPO pending stent insertion Disposition - admit to PCU Admission and Anticipated Discharge Date Admission Date: November 10, 2023 History of Present Illness Chief Complaint: Right sided flank and abdominal pain Primary Care Provider: ABIGAIL Quick Sara Motta is a 63 year old female with significant history of kidney stones who presents to the ER with right sided flank/abdominal pain. Symptoms started yesterday and she felt like she put her back out. Flank pain started radiating around to her front. No dysuria, change in frequency/smell of urine. Severity 5/10 on arrival to the ER. Constant pain, relieved with morphine given in the ER. Associated chills and vomiting this morning therefore called EMS. Allergies Allergy/AdvReac Type Severity Reaction Status Date / Time bacitracin Allergy Intermediate Hives Verified 11/10/23 14:57 neomycin Allergy Intermediate Hives Verified 11/10/23 14:57 polymyxin B Allergy Intermediate Hives Verified 11/10/23 14:57 Home Medications Medication Instructions Recorded Confirmed Type vit C,E,zinc,copper-[id number] 250 1 cap PO QAM 02/28/19 11/10/23 History mg-lutein 5 mg-zeaxanthin 1 mg capsule (Ocuvite Adult 50 Plus) doxycycline hyclate 100 mg capsule 100 mg PO QAM #90 caps 11/12/22 11/10/23 Rx dabigatran etexilate 150 mg 150 mg PO BID #180 caps 02/10/23 11/10/23 Rx capsule (Pradaxa) metoprolol tartrate 100 mg tablet 100 mg PO BID #180 tabs 02/10/23 11/10/23 Rx cholecalciferol (vitamin D3) 50 50 mcg PO QAM #90 caps 02/23/23 11/10/23 Rx mcg (2,000 unit) capsule (Vitamin D3) diltiazem HCl 120 mg 120 mg PO QAM #90 caps 05/10/23 11/10/23 Rx capsule,extended release 24 hr vibegron 75 mg tablet (Gemtesa) 75 mg PO QPM #90 tabs 11/01/23 11/10/23 Rx metronidazole 0.75 % topical cream 1 applic topical BID PRN FLARE 11/10/23 11/10/23 History Past Med/Surg History Problem List (Updated 11/10/23 @ 15:37 by George Benito MD) Atrial fibrillation with RVR Sepsis UTI (urinary tract infection) Right ureteral calculus Hydronephrosis of right kidney Degenerative arthritis of knee, bilateral Lymphedema LE, stable per pt Left leg cellulitis (Acute) HTN (hypertension) (Chronic) History of cellulitis Skin problem (Chronic) Left leg cellulitis (Acute) Incontinence Hematuria Right ovarian cyst Ureterocele Preop testing Vitamin D deficiency (Acute) Anticoagulant long-term use (Acute) Encounter for pre-operative examination Encounter for screening for malignant neoplasm of colon Encounter for screening for malignant neoplasm of rectum Mixed incontinence Nephrolithiasis Hematuria, gross Impaired fasting glucose (Acute) A-fib Permanent, on pradaxa, monitored by PCP Medical History Morbid obesity with BMI of 50.0-59.9, adult Lymphedema History of COVID-19 Malignant melanoma of skin Kidney stones History of cellulitis A-fib Hypertension Surgical History History of cystoscopy History of dilatation and curettage Melanoma BCC (basal cell carcinoma of skin) H/O tooth extraction History of surgery History of mandibular surgery Hx of colonoscopy Family History Mother Diabetes Hypertension Grandfather Myocardial infarction Other No family history of adverse response to anesthesia Denies family history of Ovarian cancer Prostate cancer Breast cancer Colorectal cancer Social History (Updated 07/20/23 @ 16:10 by Lesley Miller LPN) Smoking Status: Former smoker Second Hand Exposure: No; Do You Dip or Chew Tobacco: No; Hx Alcohol Use: No Hx Substance Use: No Preferred Language: Czech Communication Ability: Effective Visual Impairment: No Limitations Emergency Response Coordinator Required: No Beliefs That Will Affect Care: None marital status: Single Current Living Situation: Family current occupational status: employed 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 Feels Safe at Home: Yes Childhood Exposure to Second-Hand Smoke: No Diet: regular caffeine: Yes Dental Care, Regularly: Yes Seatbelt Use: always Sunscreen Use: Yes Assistive Devices: None Review of Systems Review of Systems: All systems reviewed & are unremarkable except as noted in HPI & below Physical Exam Constitutional: well developed and + morbidly obese; no acute distress Eyes: + anicteric sclerae; normal pupil size ENMT: external ear and nose normal, oropharynx normal Mouth: oral mucous membranes not dry Respiratory: normal respiratory effort, lungs clear to auscultation Cardiovascular: Rate/Rhythm: + tachycardic and + irregularly irregular Heart Sounds: no murmur Extremities: normal capillary refill and + pedal edema (1+ b/l pitting equal); no calf tenderness Gastrointestinal (Abdomen): Inspection/Auscultation: abdomen normal to inspection; abdomen not distended Percussion/Palpation: + abdomen tender (right sided) and abdomen soft Skin: no rashes, warm and dry (no areas of cellulitis seen) Neurologic: moves all extremities and awake; not confused Psychiatric: A+Ox3, euthymic affect Genitourinary: + CVA tenderness (right) Results & Data Results & Data Vital Signs (Past 12 Hours) Vital Signs Temp Pulse Resp BP Pulse Ox O2 Del Method 11/10/23 15:18 132 H 11/10/23 15:00 129 H 23 95 11/10/23 14:58 146 H 100/69 07/24/24 14:56 100/69 11/10/23 14:54 119 H 28 H 93 11/10/23 14:42 127 H 28 H 94 11/10/23 14:30 138 H 24 90 11/10/23 14:06 117 H 24 11/10/23 13:51 112 H 26 H 11/10/23 13:44 129 H 11/10/23 13:42 127 H 27 H 96 11/10/23 13:25 36.8 C 124 H 20 123/81 97 Room Air Laboratory Results Abnormal lab results 11/10/23 11/10/23 Range/Units 13:53 Unknown WBC 1.42 L (4.8-10.8) K/ul MCHC 31.5 L (32.0-36.0) g/dL RDW Std Deviation 49.2 H (36.4-46.3) fL Neut # (Auto) 1.26 L (1.40-6.50) K/uL Lymph # (Auto) 0.11 L (1.20-3.40) K/uL [place] # (Auto) 0.01 L (0.11-0.59) K/uL BUN 24 H (6-23) mg/dl Creatinine 1.46 H (0.6-1.2) mg/dl Total Bilirubin 2.3 H (0.2-1.0) mg/dl Alkaline Phosphatase 122 H (34-104) U/L Troponin I High Sens 58.9 H* (0-14) pg/ml Lipase 5 L (11-82) U/L Urine Appearance Cloudy A (Clear) Urine Protein 2+ H (Negative) Urine Blood 3+ H (Negative) Urine Nitrite Positive A (Negative) Ur Leukocyte Esterase 3+ H (Negative) Urine WBC (Auto) >50 H (0-5) /hpf Urine RBC (Auto) >20 H (0-2) /hpf U Hyaline Cast (Auto) 3-5 H (0-2) /lpf Urine Bacteria (Auto) 4+ H (None Seen) Diagnostic Findings XR chest 1V portable HISTORY: 63 years-old Female r flank pain acute shortness of breath with right- sided flank pain COMPARISON: CT of same day TECHNIQUE: AP view of the chest FINDINGS: Cardiac silhouette is enlarged. No pneumothorax, pleural effusion or pulmonary edema. Mild right hemidiaphragmatic elevation. Bones appear intact. Atherosclerosis of the aorta. IMPRESSION: Cardiomegaly without acute process. ABDOMEN AND PELVIS CT WITHOUT CONTRAST CT DOSE: 1712.73 mGy.cm HISTORY: r flank pain TECHNIQUE: Multiaxial CT images of the abdomen and pelvis were performed without contrast. A dose lowering technique was utilized adhering to the principles of ALARA. COMPARISON STUDY: Abdomen and pelvis CT 08/18/2022. FINDINGS: The lung bases are clear. No pneumoperitoneum. No pneumatosis. Bilateral L5 spondylolysis. No acute fractures. The heart is mildly enlarged. The unenhanced liver, spleen, adrenal glands, and pancreas are unremarkable. No retroperitoneal lymphadenopathy. Normal gallbladder. Normal caliber abdominal aorta. No pelvic lymphadenopathy or pelvic free fluid. The bladder, uterus, left ovary are unremarkable. There is again noted a 6.2 cm right ovarian lesion. Stable compared to the prior study. Suboptimal evaluation for bowel pathology due to the lack of intravenous and oral contrast. However, there is no definite bowel wall thickening or obstruction. Normal appendix. A few colonic diverticula. No evidence for acute diverticulitis. There is a punctate stone within the left kidney. There is moderate to severe right hydronephrosis secondary to an obstructing 7 mm stone within the right ureteropelvic junction. Right perinephric and periureteral edema is likely due to the obstruction. No left-sided hydronephrosis or left ureteral calculi. IMPRESSION: 1. A 7 mm obstructing stone within the right ureteropelvic junction resulting in moderate to severe right hydronephrosis. 2. Left-sided nephrolithiasis. 3. No bowel wall thickening or obstruction. 4. Stable 6.2 cm right ovarian lesion. This is considered to be pathologic in a postmenopausal female despite the stability. Gynecologic consultation recommended. 5. Additional findings as described above. Medications Administered ER Medications Given: Ondansetron 4mg IV Morphine 2mg IV Morphine 4mg IV Ceftriaxone 2000mg IV Metoprolol 5mg IV NSS 1L bolus ECG Rate (beats per minute): 114 Rhythm: atrial fibrillation Findings: + nonspecific-ST abn; no acute ischemic change Comparison ECG Date: from (September 01, 2022) Change: the following changes noted (Non-specific T wave abnormality now evident in lateral leads) Code Status & VTE Plan Code Status Full VTE Prophylaxis Plan VTE Prophylaxis will be ordered: Yes PG Care Time/CCT Total # of Minutes Spent Total Time Spent with Patient: Total time spent is greater than 50% in coordination of care (as documented) at patient's floor/unit and/or counseling patient: Coding Level of Care Code 84665 INT INP/OBS CARE MIN Diagnoses Sepsis A41.9 Right ureteral calculus N20.1 Atrial fibrillation with RVR I48.91 UTI (urinary tract infection) N39.0
[2023-11-10] MEDS ORDERED: DIATRIZOATE MEGLUMINE 30% 100ML VIAL INSTIL PRN (15:34)
--- NOTE | 2023-11-10 15:58 | Anesthesiology Consultation ---
Date of Service November 10, 2023 Assessment & Plan (1) Encounter for pre-operative examination: Chart Review Chart Review: Acceptable Risk for Surgery (emergent procedure for infected stone) History Surgery Operation Date: 11/10/23 12:40 Proposed Procedures p Cystoscopy, Right Stent Placement - Gómez García MD Height/Weight Height: 5 ft 4 in Weight: 180.5 kg Allergies Allergy/AdvReac Type Severity Reaction Status Date / Time bacitracin Allergy Intermediate Hives Verified 11/10/23 14:57 neomycin Allergy Intermediate Hives Verified 11/10/23 14:57 polymyxin B Allergy Intermediate Hives Verified 11/10/23 14:57 Medications Home Medications Medication Instructions Recorded Confirmed Last Taken vit C,E,zinc,copper-zucgj0r 250 1 cap PO QAM 02/28/19 11/10/23 11/09/23 mg-lutein 5 mg-zeaxanthin 1 mg capsule (Ocuvite Adult 50 Plus) doxycycline hyclate 100 mg capsule 100 mg PO QAM #90 caps 11/12/22 11/10/23 11/09/23 dabigatran etexilate 150 mg 150 mg PO BID #180 caps 02/10/23 11/10/23 11/09/23 capsule (Pradaxa) metoprolol tartrate 100 mg tablet 100 mg PO BID #180 tabs 02/10/23 11/10/23 11/09/23 cholecalciferol (vitamin D3) 50 50 mcg PO QAM #90 caps 02/23/23 11/10/23 11/09/23 mcg (2,000 unit) capsule (Vitamin D3) diltiazem HCl 120 mg 120 mg PO QAM #90 caps 05/10/23 11/10/23 11/09/23 capsule,extended release 24 hr vibegron 75 mg tablet (Gemtesa) 75 mg PO QPM #90 tabs 11/01/23 11/10/23 11/09/23 metronidazole 0.75 % topical cream 1 applic topical BID PRN FLARE 11/10/23 11/10/23 Unknown Past Medical History Medical History Morbid obesity with BMI of 50.0-59.9, adult History of COVID-19 03/2020 > symptoms at time of exhaustion, achiness > resolved Malignant melanoma of skin Kidney stones History of cellulitis hx of recurrent cellulitis/no issues x 1+ years on maintenance doxycycline Hypertension chronic a fib - poor rate control with current infection Past Family History Family History Mother Diabetes Hypertension Grandfather Myocardial infarction Other No family history of adverse response to anesthesia Denies family history of Ovarian cancer Prostate cancer Breast cancer Colorectal cancer Past Surgical History Surgical History History of cystoscopy Cystoscopy, urethral dilation, ureteral stone extraction, stent (01/15/20): MAC at [facility] History of dilatation and curettage D&C, hysteroscopy (03/13/19): Grade 1 view, Glidescope 3.0, ETT 7.0 at [facility] Melanoma s/p excision (RLE)-10-15 YRS AGO BCC (basal cell carcinoma of skin) s/p excision (arm) H/O tooth extraction History of surgery melanoma removal and skin graft right LE History of mandibular surgery No ROM limitations Hx of colonoscopy Social History Smoking Status: Former smoker Do You Dip or Chew Tobacco: No Hx Alcohol Use: No Alcohol type: wine alcohol intake frequency: holidays/special occasions only Hx Substance Use: No substance use type: does not use Physical Exam Vital Signs Last Vital Signs Temp 36.8 C 11/10/23 13:25 Pulse 121 H 11/10/23 15:21 Resp 37 H 11/10/23 15:21 BP 100/69 11/10/23 14:58 Pulse Ox 95 11/10/23 15:21 O2 Del Method Room Air 11/10/23 15:54 Testing Laboratory Results 11/10/23 13:53 11/10/23 13:53 Urine Color [place] 11/10/23 Unknown Urine Appearance Cloudy (Clear) A 11/10/23 Unknown Urine pH 6.0 (4.5-7.5) 11/10/23 Unknown Ur Specific [place] 1.014 (1.000-1.030) 11/10/23 Unknown Urine Protein 2+ (Negative) H 11/10/23 Unknown Urine Glucose (UA) Negative (Negative) 11/10/23 Unknown Urine Ketones Negative (Negative) 11/10/23 Unknown Urine Nitrite Positive (Negative) A 11/10/23 Unknown Ur Leukocyte Esterase 3+ (Negative) H 11/10/23 Unknown Urine WBC (Auto) >50 /hpf (0-5) H 11/10/23 Unknown Urine RBC (Auto) >20 /hpf (0-2) H 11/10/23 Unknown U Hyaline Cast (Auto) 3-5 /lpf (0-2) H 11/10/23 Unknown U Epithel Cells (Auto) 0-2 /hpf (0-2) 11/10/23 Unknown Urine Bacteria (Auto) 4+ (None Seen) H 11/10/23 Unknown Electrocardiogram Date: 11/10/23 Findings: + AFIB @ (114)
[2023-11-10] MEDS ORDERED: ATROPINE SULFATE 0.1 MG/ML 10ML SYR IV PRN (16:08)
[2023-11-10] MEDS ORDERED: fentaNYL citrate PF 100 MCG/2 ML VIAL IV PRN (16:08)
[2023-11-10] MEDS ORDERED: ONDANSETRON INJ 2 MG/ML 2 ML VIAL IV PRN ×2 (16:08→19:06)
[2023-11-10] MEDS ORDERED: PROMETHAZINE HCL 6.25 MG in SODIUM CHLORIDE 0.9% 50 ML IV PRN (16:08)
[2023-11-10] MEDS: LACTATED RINGER'S 1,000 ML IV ONE (16:18)
[2023-11-10] MEDS ORDERED: KETAMINE HCL 10MG/ML SYR ONE (16:30)
[2023-11-10] MEDS ORDERED: MIDAZOLAM HCL 1 MG/ML 2ML VIAL ONE (16:30)
[2023-11-10] MEDS ORDERED: fentaNYL citrate PF 100 MCG/2 ML VIAL ONE (16:41)
--- NOTE | 2023-11-10 16:48 | Operative Report ---
PG Post Operative Report Pre & Post Diagnosis Right ureteral calculus, UTI Operation Date: 11/10/23 12:40 <No data on this case meets the specified criteria> Same I identified the patient and participated in the time-out.: Yes Procedure Cystoscopy, right retrograde pyelogram with radiographic interpretation, right ureteral stent placement Operation Date: 11/10/23 12:40 <No data on this case meets the specified criteria> Surgeon Gómez García MD Manager Beverage None Estimated Blood Loss 0 Findings See Below Moderate right hydronephrosis. Stent in appropriate position. Some cloudy efflux from the right UO Specimens None Drains 6 Jamaican by 24 cm right ureteral stent 16 Jamaican Coburn with 10 cc in balloon Anesthesia Type MAC Complications none Indications 63-year-old female with a right proximal obstructing ureteral calculus, urine concerning for infection and with tachycardia and elevated lactic acid. Taken emergently to the OR for stent placement. Description of Procedure After informed consent was obtained, the patient was transported operative suite. MAC anesthesia was induced. The patient was placed in dorsolithotomy position prepped and draped in a sterile fashion. They received preoperative ceftriaxone for antibiotic prophylaxis. An appropriate surgical timeout was performed. A 22 Jamaican rigid scope was inserted per urethra into the bladder. Landa cystoscopy revealed no stones or lesions. I turned my attention the right ureteral orifice and intubated this with a 5 Jamaican open-ended catheter. A right retrograde pyelogram was shot which showed moderate hydronephrosis. A sensor wire was advanced into the kidney and confirmed fluoroscopically. A 6 Jamaican by 24 cm right ureteral stent was deployed with a good proximal coil in the renal pelvis and a good distal coil noted in the bladder, confirmed fluoroscopically and under direct visualization, respectively. The bladder was left full and the scope was removed. 16 Jamaican catheter was placed with return of urine. Balloon was inflated with 10 cc sterile water. This concluded the end of the case. All counts were correct at the end of the case. I was present, scrubbed, and actively participated for the entirety of the procedure. I attest to the content of the Intraoperative Record and any orders documented therein. Any exceptions are noted below.
--- NOTE | 2023-11-10 17:07 | Fluoroscopy Report ---
FL retrograde includes kub CLINICAL HISTORY: CYSTO COMPARISON STUDY: None. FLUOROSCOPY TIME: 8 seconds. FLUOROSCOPY IMAGES: 2 Ka,r: 5.4 mGy FINDINGS: Retrograde opacification of right renal collecting system was performed with placement of a right ureteral stent. Only the proximal portion of the stent is identified but appears in good posit ion IMPRESSION: Fluoroscopic assistance as above ACT 112: Negative or not required by law. Electronically signed by: Ajay Rodriguez M.D. 11/10/2023 5:05 PM
[2023-11-10] MEDS: PHENYLEPHRINE 100MCG/ML 5ML SYR IV PRN (17:29)
--- NOTE | 2023-11-10 18:20 | Anesthesiology Progress Note ---
Date of Service November 10, 2023 Anesthesia Post Procedure Vital Signs Vital Signs: Temp Pulse Pulse Pulse Resp BP BP 11/10/23 18:05 37.6 C H 81 22 89/60 L 11/10/23 17:55 37.6 C H 94 H 24 71/54 L 11/10/23 17:45 37.6 C H 84 19 59/41 L 11/10/23 17:35 100 H 21 76/53 L 11/10/23 17:25 92 H 21 76/47 L 11/10/23 17:15 102 H 21 67/35 L 11/10/23 17:05 88 20 67/45 L 11/10/23 16:56 37.7 C H 101 H 25 H 113/44 L 11/10/23 16:15 37.1 C 113 H 21 91/53 L 11/10/23 15:54 11/10/23 15:21 121 H 37 H 11/10/23 15:18 132 H 11/10/23 15:12 117 H 24 11/10/23 15:00 129 H 23 11/10/23 14:58 146 H 100/69 11/10/23 14:56 100/69 11/10/23 14:54 119 H 28 H 11/10/23 14:42 127 H 28 H 11/10/23 14:30 138 H 24 11/10/23 14:06 117 H 24 11/10/23 13:51 112 H 26 H 11/10/23 13:44 129 H 11/10/23 13:42 127 H 27 H 11/10/23 13:25 36.8 C 124 H 20 123/81 Pulse Ox O2 Del Method O2 Flow Rate 11/10/23 18:05 100 Oxymask 2 11/10/23 17:55 100 Oxymask 2 11/10/23 17:45 100 Oxymask 2 11/10/23 17:35 100 Oxymask 4 11/10/23 17:25 100 Oxymask 4 11/10/23 17:15 99 Oxymask 4 11/10/23 17:05 99 Oxymask 10 11/10/23 16:56 10 L Oxymask 10 11/10/23 16:15 95 Room Air 11/10/23 15:54 Room Air 11/10/23 15:21 95 11/10/23 15:18 11/10/23 15:12 96 11/10/23 15:00 95 11/10/23 14:58 11/10/23 14:56 11/10/23 14:54 93 11/10/23 14:42 94 11/10/23 14:30 90 11/10/23 14:06 11/10/23 13:51 11/10/23 13:44 11/10/23 13:42 96 11/10/23 13:25 97 Room Air Pain Intensity Abdomen: Pain Intensity: 2 Transfer of Care Handoff Completed per policy Notes Mental Status: alert / awake / arousable and participated in evaluation Patient Amnestic to Procedure: Yes Nausea / Vomiting: adequately controlled Pain: adequately controlled Airway Patency, RR, SpO2: stable & adequate BP & HR: stable & adequate Hydration State: stable & adequate Anesthetic Complications: no major complications apparent and Pt Satisfied with anesthetic care Notes: required a 1L fluid bolus to stabalize the pressure
[2023-11-10] MEDS ORDERED: METOPROLOL TARTRATE 1 MG/ML VIAL IV PRN (19:06)
--- NOTE | 2023-11-10 20:20 | Electrocardiogram Report ---
Test Reason : Blood Pressure : / mmHG Vent. Rate : 114 BPM Atrial Rate : 000 BPM P-R Int : 000 ms QRS Dur : 084 ms QT Int : 312 ms P-R-T Axes : 000 019 114 degrees QTc Int : 430 ms Atrial fibrillation with rapid ventricular response with premature ventricular or aberrantly conducte d complexes Nonspecific ST and T wave abnormality Abnormal ECG When compared with ECG of 01-SEP-2022 15:45, Nonspecific T wave abnormality now evident in Lateral leads Confirmed by Aaron Poe ([id number]) on 11/10/2023 8:20:33 PM Referred By: Confirmed By:Aaron Poe
[2023-11-10] MEDS: DABIGATRAN ETEXILATE 75 MG CAP PO SCH (20:54)
[2023-11-10] MEDS: VIBEGRON 75 MG TAB PO SCH (20:54)
[2023-11-10] MEDS: LACTATED RINGER'S 1,000 ML IV SCH (20:54)
[2023-11-10] MEDS ORDERED: METOPROLOL TARTRATE 100 MG TAB PO SCH (21:00)
[2023-11-11] MEDS: PNEUMOCOCCAL VACCINE (PCV20) 20-VAL CONJ-DIP CRM/PF 0.5 ML SYR IM ONE (01:59)
[2023-11-11] MEDS: ACETAMINOPHEN 1,000 MG/100 ML VIAL IV STA (06:38)
[2023-11-11 07:11] LABS: BUN Creatinine Ratio 11.6 (10-20); Calcium 8.6 mg/dl (8.6-10.3); Creatinine Clr Calc Pharmacy 34.1 ml/min; Est GFR (African American) 22.6 ml/min; Est GFR (Non-African American) 19.5 ml/min; Potassium 4.1 mmol/L (3.5-5.1)
[2023-11-11] MEDS ORDERED: Nursing to Pharmacy Communication SCH (07:45)
--- NOTE | 2023-11-11 07:46 | Urology Progress Note ---
Date of Service November 11, 2023 Assessment & Plan (1) Sepsis: (2) Hydronephrosis of right kidney: (3) Right ureteral calculus: (4) UTI (urinary tract infection): Plan - POD #1 s/p right ureteral stent placement. - Afebrile and hemodynamically stable at present. - Labs today- WBC 18.75 (1.42 on admission); Creatinine up from 1.46 to 2.5 today. - Urine culture prelim gram-negative bacilli, blood cultures pending. - Coburn intact and draining minimal pink-tinged urine. - No further intervention warranted. - Continue antibiotics and tailor as culture data becomes available. - Maintain Coburn catheter and right ureteral stent for maximum decompression of the urinary tract. - Continue supportive care. - Continue to trend labs. - Urology will follow along. Admission and Anticipated Discharge Date Admission Date: November 10, 2023 Subjective Patient seen at bedside this AM Awake, resting in bed on arrival No acute distress Reports that overall she does not feel well She was hypotensive last night following her procedure Coburn draining pink tinged urine, minimal output documented overnight (50ml). She denies any significant pain or discomfort Tolerating the stent with minimal bother Denies f/c/n/v Review of Systems Constitutional: as per Subjective / HPI Gastrointestinal: as per Subjective / HPI Genitourinary: as per Subjective / HPI Physical Exam Constitutional: + obese; no acute distress Respiratory: no respiratory distress and no labored breathing Neurologic: awake Psychiatric: A+Ox3, euthymic affect Genitourinary: Coburn intact Results & Data Vital Signs (Past 12 Hours) Vital Signs Temp Pulse Pulse Resp BP Pulse Ox O2 Del Method 11/11/23 07:00 92 H 11/11/23 03:05 36.5 C 74 19 94/63 L 96 Nasal Cannula 11/10/23 23:57 Nasal Cannula 11/10/23 22:17 36.7 C 80 19 98 Nasal Cannula 11/10/23 21:57 Nasal Cannula O2 Flow Rate 11/11/23 07:00 11/11/23 03:05 2 11/10/23 23:57 2 11/10/23 22:17 2 11/10/23 21:57 2 PG Care Time/CCT Total # of Minutes Spent Total Time Spent with Patient: Total time spent is greater than 50% in coordination of care (as documented) at patient's floor/unit and/or counseling patient: Coding Level of Care Code 15842 SUB INP/OBS CARE 2MIN Diagnoses Sepsis A41.9 Hydronephrosis of right kidney N13.30 Right ureteral calculus N20.1 UTI (urinary tract infection) N39.0
[2023-11-11 08:54] LABS: Hemoglobin 11.9 g/dl (12.0-16.0); Mean Corpuscular Hemoglobin 30.2 pg (25.0-34.0); Mean Corpuscular Hgb Conc 31.3 g/dL (32.0-36.0); Mean Corpuscular Volume 96.4 fL (80.0-100.0); Platelet Count 100 K/uL (130-400); RDW Coefficient of Variation 14.7 % (11.5-14.5); RDW Standard Deviation 52.3 fL (36.4-46.3); Red Blood Count 3.94 M/uL (4.20-5.40); White Blood Count 18.75 K/ul (4.8-10.8)
[2023-11-11] MEDS: SODIUM CHLORIDE 0.9% 1,000 ML IV SCH (08:57)
[2023-11-11] MEDS: MICONAZOLE NITRATE POWDER 85 GM EXT PRN (08:58)
[2023-11-11] MEDS: CEROVITE ADV FORMULA TAB PO SCH (08:59)
[2023-11-11] MEDS: CHOLECALCIFEROL 25 MCG (1000 UNITS) TAB PO SCH (08:59)
[2023-11-11] MEDS: DOXYCYCLINE HYCLATE 100 MG CAP PO SCH (08:59)
[2023-11-11] MEDS ORDERED: dilTIAZem HCL 120 MG CAPCR PO SCH (09:00)
[2023-11-11] MEDS: METOPROLOL TARTRATE 100 MG TAB PO SCH (09:00)
[2023-11-11 09:14] LABS: Basophils # (auto) 0.07 K/uL (0.00-0.20); Basophils % (auto) 0.4 %; Eosinophils # (auto) 0.05 K/uL (0.00-0.50); Eosinophils % (auto) 0.3 %; Immature Granulocytes # (auto) 0.88 K/uL (0.01-0.20); Immature Granulocytes % (auto) 4.7 %; Lymphocytes # (auto) 0.52 K/uL (1.20-3.40); Lymphocytes % (auto) 2.8 %; Monocytes # (auto) 0.93 K/uL (0.11-0.59); Neutrophils % (auto) 86.8 %; Toxic Granulation 1+; Toxic Vacuolation 1+
[2023-11-11] MEDS: MoRPHine SULFATE 2 MG/ML CARP IV PRN (11:05)
[2023-11-11] MEDS: SODIUM CHLORIDE 0.9% 500 ML IV ONE (11:06)
--- NOTE | 2023-11-11 12:13 | Hospitalist Progress Note ---
Date of Service November 11, 2023 Assessment & Plan (1) Sepsis: Plan: Transient postprocedural septic shock responsive to IV fluids now resolved. Urine cultures growing gram-negative bacilli. Blood culture results are pending. Continue intravenous Rocephin (2) Right ureteral calculus: Plan: Urology consultation and recommendations appreciated. Postoperative day 1 after placement of right ureteral stent. (3) Atrial fibrillation with RVR: Plan: Present on admission. Now rate controlled. Telemetry. Continue metoprolol and diltiazem (4) UTI (urinary tract infection): Plan: Present on admission. Gram-negative bacilli ordered. Previous cultures grew pansensitive E. coli. Continue Rocephin, day 2 (5) Morbid obesity: Plan: BMI greater than 40. Significant weight loss recommended (6) Demand ischemia: Plan: Troponin elevation without chest pain or significant EKG changes. No evidence of acute coronary syndrome (7) Acute kidney injury: Plan: Creatinine bumped to 2.5 due to hypotension. I doubt if she has acute tubular necrosis. Hopefully it is just prerenal. Will monitor intake and output, continue IV fluids. Serial labs Plan Anticipate eventual discharge to home within the next day or 2 Admission and Anticipated Discharge Date Admission Date: November 10, 2023 Subjective Alert and oriented. No acute distress. She is asking to sit up in a chair however. She was prevented from doing this because her blood pressure was on the low side last night. IV fluid bolus administered today and continued normal saline at 100 cc/h. She appeared to have postprocedural septic shock last evening which responded to IV fluids. She did not need pressor support. Creatinine however is bumped up to 2.5 which is probably from prerenal causes. Continue IV fluids and follow. Urine is growing gram-negative bacilli and blood cultures remain pending. Previous urine cultures grew pansensitive E. coli. She is on Rocephin. Appreciate urology consultation and recommendations. Postoperative day 1 after placement of right ureter stent. Review of Systems 2 Review of Systems: Constitutional-no fever or chills. Morbidly obese ENT-no blurred vision, no double vision, no epistaxis, no sore throat Respiratory-no cough, no wheezing, no shortness of breath Cardiac-no palpitations, no chest pain, no syncope GI-no nausea, vomiting, diarrhea, melena, hematochezia -no urinary retention, no urinary incontinence, no dysuria, no hematuria Musculoskeletal-no joint pain, no muscle tenderness Skin-no bruising, no rashes, no pruritus Neuro-no isolated weakness, no paresthesia Psych-no depression, no anxiety Physical Exam 2 Physical Exam: General-alert and oriented x3, no fever, no chills. Morbidly obese HEENT-head atraumatic and normocephalic, pupils equal and reactive to light, extraocular muscles intact Neck-no lymphadenopathy or thyromegaly, trachea midline Chest-clear to auscultation. No rales, wheezing or rhonchi Cardiac-regular rate and rhythm, normal S1 and S2 Abdomen-normal bowel sounds, no hepatosplenomegaly Extremities-chronic bilateral lower extremity edema and chronic venous stasis changes Neuro-cranial nerves II through XII intact, motor and sensory function within normal limits, strength symmetrical, no focal deficits Psych-normal affect, normal mood Results & Data Results & Data Vital Signs (Past 12 Hours) Vital Signs Temp Pulse Pulse Pulse Resp BP Pulse Ox 11/11/23 10:16 36.6 C 87 19 103/68 93 11/11/23 08:04 36.6 C 78 20 89/62 L 93 11/11/23 08:00 11/11/23 07:00 92 H 11/11/23 03:05 36.5 C 74 19 94/63 L 96 O2 Del Method O2 Flow Rate 11/11/23 10:16 Room Air 11/11/23 08:04 Room Air 11/11/23 08:00 Nasal Cannula 2 11/11/23 07:00 11/11/23 03:05 Nasal Cannula 2 Laboratory Results 11/11/23 08:26 11/11/23 06:31 PG Care Time/CCT Total # of Minutes Spent Total Time Spent with Patient: Total time spent is greater than 50% in coordination of care (as documented) at patient's floor/unit and/or counseling patient: Coding Level of Care Code 64785 SUB INP/OBS CARE 3/50MIN Diagnoses Sepsis A41.9 Right ureteral calculus N20.1 Atrial fibrillation with RVR I48.91 UTI (urinary tract infection) N39.0 Morbid obesity E66.01 Demand ischemia I24.89 Acute kidney injury N17.9
[2023-11-11] MEDS: cefTRIAXone SODIUM 2,000 MG/50 ML BAG IV SCH (15:33)
[2023-11-12] MEDS: SODIUM CHLORIDE 0.9% 500 ML IV ONE ×2 (02:53→17:13)
[2023-11-12 07:12] LABS: Hematocrit (blood only) 35.7 % (37.0-47.0); Hemoglobin 11.1 g/dl (12.0-16.0); Mean Corpuscular Hemoglobin 29.7 pg (25.0-34.0); Mean Corpuscular Hgb Conc 31.1 g/dL (32.0-36.0); Mean Corpuscular Volume 95.5 fL (80.0-100.0); Mean Platelet Volume 11.7 fL (9.4-12.4); Platelet Count 107 K/uL (130-400); RDW Coefficient of Variation 14.6 % (11.5-14.5); RDW Standard Deviation 50.7 fL (36.4-46.3); Red Blood Count 3.74 M/uL (4.20-5.40); White Blood Count 16.53 K/ul (4.8-10.8)
[2023-11-12 07:36] LABS: BUN Creatinine Ratio 13.8 (10-20); Calcium 8.2 mg/dl (8.6-10.3); Creatinine Clr Calc Pharmacy 26.3 ml/min; Est GFR (African American) 16.3 ml/min; Est GFR (Non-African American) 14.1 ml/min; Potassium 5.2 mmol/L (3.5-5.1)
[2023-11-12 08:12] LABS: ANC (manual) 15.37 K/uL (1.4-6.5); Lymphocytes % (manual) 3 %; Monocytes # (manual) 0.66 K/uL (0.11-0.59); Monocytes % (manual) 4 %; Neutrophils # (manual) 15.37 K/uL (1.40-6.50); Neutrophils % (manual) 93 %
[2023-11-12] MEDS ORDERED: dilTIAZem HCL 120 MG CAPCR PO SCH (09:00)
--- NOTE | 2023-11-12 10:24 | Ultrasound Report ---
RENAL ULTRASOUND HISTORY: Acute renal failure ARF COMPARISON: CT 11/10/2023 FINDINGS: Right kidney: 11.1 cm. There is apparent resolution of the previously described right-sided hydroneph rosis. Normal corticomedullary differentiation and cortical thickness. Left kidney: 11.6 cm. No hydronephrosis. Normal corticomedullary differentiation and cortical thickne ss. Bladder: Decompressed with Coburn catheter in place. Limited study secondary to patient body habitus. IMPRESSION: 1. Apparent resolution of the previously described right-sided hydronephrosis. 2. Unremarkable sonographic appearance of the kidneys. 3. Decompressed bladder with Coburn catheter. 4. Limited exam secondary to patient body habitus. ACT 112: Negative or not required by law. Electronically signed by: Steven Perez M.D. 11/12/2023 10:23 AM
--- NOTE | 2023-11-12 10:45 | Urology Progress Note ---
Date of Service November 12, 2023 Assessment & Plan (1) Sepsis: (2) Hydronephrosis of right kidney: (3) Right ureteral calculus: (4) UTI (urinary tract infection): Plan - POD #2 s/p right ureteral stent placement. - Tolerating the stent with minimal bother. - Afebrile and normotensive at present. - Labs today- WBC from 18.75- 16.53 today; Creatinine up from 2.5 -3.27 today. - Urine culture grew E.coli. Blood cultures prelim no growth x 24 hours. - Coburn intact and draining thin light red urine without clot. - No further intervention warranted. - Continue antibiotics and tailor as culture data becomes available. - Maintain Coburn catheter and right ureteral stent for maximum decompression of the urinary tract. - Monitor urine output. Ok to hand irrigate the catheter as needed. - Continue supportive care. - Continue to trend labs. - Urology will follow along. Admission and Anticipated Discharge Date Admission Date: November 10, 2023 Supervising Physician Co-Signing Physician Notes Discussed patient with MICHAEL. Agree with plan. Subjective Patient seen at bedside this AM Awake, resting in bedside chair on arrival No acute distress She admits to some confusion yesterday, but feels this was from the morphine. She feels at baseline this morning. Reports decreased appetite Coburn draining thin light red urine without clot. Minimal output documented overnight (50ml). She denies any significant pain or discomfort Tolerating the stent with minimal bother Denies f/c/n/v Review of Systems Constitutional: as per Subjective / HPI Gastrointestinal: as per Subjective / HPI Genitourinary: as per Subjective / HPI Physical Exam Constitutional: + obese; no acute distress Respiratory: no respiratory distress and no labored breathing Neurologic: awake Psychiatric: A+Ox3, euthymic affect Genitourinary: Coburn intact Results & Data Vital Signs (Past 12 Hours) Vital Signs Temp Pulse Resp BP Pulse Ox O2 Del Method 11/12/23 08:15 36.3 C L 89 19 116/77 93 Room Air 11/12/23 03:24 87 112/65 11/12/23 03:05 36.5 C 81 21 95/66 L 94 Room Air PG Care Time/CCT Total # of Minutes Spent Total Time Spent with Patient: Total time spent is greater than 50% in coordination of care (as documented) at patient's floor/unit and/or counseling patient: Coding Level of Care Code 77373 SUB INP/OBS CARE MIN Diagnoses Sepsis A41.9 Hydronephrosis of right kidney N13.30 Right ureteral calculus N20.1 UTI (urinary tract infection) N39.0
[2023-11-12] MEDS: D5W AND NSS 1,000 ML IV SCH (10:48)
--- NOTE | 2023-11-12 14:07 | Hospitalist Progress Note ---
Date of Service November 12, 2023 Assessment & Plan (1) Sepsis: Plan: Transient postprocedural septic shock responsive to IV fluids now resolved. Urine cultures growing pansensitive E. coli. Fortunately, blood cultures are negative. Continue intravenous Rocephin, day 3 (2) Right ureteral calculus: Plan: Urology consultation and recommendations appreciated. Postoperative day 2 after placement of right ureteral stent. Repeat renal ultrasound done today, November 11, reveals resolution of the right hydronephrosis that was present on admission (3) Atrial fibrillation with RVR: Plan: Present on admission. Now rate controlled. Telemetry. Continue metoprolol and diltiazem (4) UTI (urinary tract infection): Plan: Present on admission. E. coli isolated. Pansensitive. Continue Rocephin, day 3 (5) Morbid obesity: Plan: BMI greater than 40. Significant weight loss recommended (6) Demand ischemia: Plan: Troponin elevation without chest pain or significant EKG changes. No evidence of acute coronary syndrome (7) Acute kidney injury: Plan: Creatinine continues to rise, now up to 3.2. Renal ultrasound looks better however. Random urine sodium and random urine creatinine pending to calculate fractional excretion. IV fluids have been tapered down. She probably has some associated ATN causing the creatinine to rise despite adequate IV fluid. Serial labs Plan Anticipate eventual discharge to home when renal function begins to improve. Hopefully within the next day or 2 Admission and Anticipated Discharge Date Admission Date: November 10, 2023 Subjective Alert and oriented. No distress. Her creatinine has continued to rise, now up to 3.2. Repeat renal ultrasound reveals resolution of the right hydronephrosis present on admission. Random urine sodium and random urine creatinine pending. Potassium has risen to 5.2. She is mildly hyperglycemic this morning without symptoms. IV fluids have been tapered down and D5W added. Urine culture growing E. coli which is pansensitive. She remains on Rocephin, day 3. Urine culture is negative. IV fluids have been tapered down. Hopefully she can go home on an oral antibiotic once the renal function begins to improve. Review of Systems 2 Review of Systems: Constitutional-no fever or chills. Morbidly obese ENT-no blurred vision, no double vision, no epistaxis, no sore throat Respiratory-no cough, no wheezing, no shortness of breath Cardiac-no palpitations, no chest pain, no syncope GI-no nausea, vomiting, diarrhea, melena, hematochezia -no urinary retention, no urinary incontinence, no dysuria, no hematuria Musculoskeletal-no joint pain, no muscle tenderness Skin-no bruising, no rashes, no pruritus Neuro-no isolated weakness, no paresthesia Psych-no depression, no anxiety Physical Exam 2 Physical Exam: General-alert and oriented x3, no fever, no chills. Morbidly obese HEENT-head atraumatic and normocephalic, pupils equal and reactive to light, extraocular muscles intact Neck-no lymphadenopathy or thyromegaly, trachea midline Chest-clear to auscultation. No rales, wheezing or rhonchi Cardiac-regular rate and rhythm, normal S1 and S2 Abdomen-normal bowel sounds, no hepatosplenomegaly Extremities-chronic bilateral lower extremity edema and chronic venous stasis changes Neuro-cranial nerves II through XII intact, motor and sensory function within normal limits, strength symmetrical, no focal deficits Psych-normal affect, normal mood Results & Data Results & Data Vital Signs (Past 12 Hours) Vital Signs Temp Pulse Resp BP Pulse Ox O2 Del Method 11/12/23 10:40 36.3 C L 86 19 119/73 95 Room Air 11/12/23 08:15 36.3 C L 89 19 116/77 93 Room Air 11/12/23 03:24 87 112/65 11/12/23 03:05 36.5 C 81 21 95/66 L 94 Room Air Laboratory Results 11/12/23 06:25 11/12/23 06:25 PG Care Time/CCT Total # of Minutes Spent Total Time Spent with Patient: Total time spent is greater than 50% in coordination of care (as documented) at patient's floor/unit and/or counseling patient: Coding Level of Care Code 02304 SUB INP/OBS CARE 3/50MIN Diagnoses Sepsis A41.9 Right ureteral calculus N20.1 Atrial fibrillation with RVR I48.91 UTI (urinary tract infection) N39.0 Morbid obesity E66.01 Demand ischemia I24.89 Acute kidney injury N17.9
[2023-11-12] MEDS: DABIGATRAN ETEXILATE 75 MG CAP PO SCH (20:22)
[2023-11-13 06:46] LABS: Hematocrit (blood only) 37.2 % (37.0-47.0); Hemoglobin 11.6 g/dl (12.0-16.0); Mean Corpuscular Hemoglobin 29.5 pg (25.0-34.0); Mean Corpuscular Hgb Conc 31.2 g/dL (32.0-36.0); Mean Corpuscular Volume 94.7 fL (80.0-100.0); Mean Platelet Volume 11.9 fL (9.4-12.4); Platelet Count 119 K/uL (130-400); RDW Coefficient of Variation 14.2 % (11.5-14.5); RDW Standard Deviation 50.4 fL (36.4-46.3); Red Blood Count 3.93 M/uL (4.20-5.40); White Blood Count 15.79 K/ul (4.8-10.8)
[2023-11-13 07:12] LABS: Calcium 8.8 mg/dl (8.6-10.3); Creatinine Clr Calc Pharmacy 23.6 ml/min; Est GFR (African American) 14.3 ml/min; Est GFR (Non-African American) 12.3 ml/min; Potassium 5.3 mmol/L (3.5-5.1)
[2023-11-13 07:27] LABS: Basophils # (auto) 0.05 K/uL (0.00-0.20); Basophils % (auto) 0.3 %; Eosinophils # (auto) 0.27 K/uL (0.00-0.50); Eosinophils % (auto) 1.7 %; Immature Granulocytes # (auto) 0.06 K/uL (0.01-0.20); Immature Granulocytes % (auto) 0.4 %; Lymphocytes # (auto) 0.93 K/uL (1.20-3.40); Lymphocytes % (auto) 5.9 %; Monocytes # (auto) 0.82 K/uL (0.11-0.59); Monocytes % (auto) 5.2 %; Neutrophils # (auto) 13.66 K/uL (1.40-6.50); Neutrophils % (auto) 86.5 %
--- NOTE | 2023-11-13 09:09 | Urology Progress Note ---
Date of Service November 13, 2023 Assessment & Plan (1) UTI (urinary tract infection): (2) Right ureteral calculus: Plan - POD #3 s/p right ureteral stent placement. - Tolerating the stent with minimal bother. - Afebrile and normotensive at present. - Labs today- WBC from 16.53- 15.79 today; Creatinine up from 3.27 -3.66 today. Her increase is slowing down and hopefully it has peaked. A renal ultrasound showed resolution of hydronephrosis so no indication for any further procedure. - Urine culture grew E.coli. Blood cultures prelim no growth x 24 hours. - Coburn intact and draining thin light red urine without clot. - No further intervention warranted. - Continue antibiotics and tailor as culture data becomes available. - Maintain Coburn catheter and right ureteral stent for maximum decompression of the urinary tract. - Monitor urine output. Ok to hand irrigate the catheter as needed. - Continue supportive care. - Continue to trend labs. - Urology will follow peripherally. Admission and Anticipated Discharge Date Admission Date: November 10, 2023 Subjective Afebrile with stable vitals. Pain well-controlled. Leukocytosis downtrending from 16.5-15.7. Creatinine still is uptrending although slower. 3.66 from 3.27. A renal ultrasound done yesterday or today showed resolution of her right hydronephrosis indicating the stent is appropriate position. Urine culture has grown out E. coli that is pratt susceptible. She is on ceftriaxone currently. Physical Exam Physical Exam: General: Alert and oriented, no acute distress HEENT: Normocephalic, mucous membranes moist Pulmonary: Nonlabored respirations Abdomen: Nondistended : Coburn draining thin red urine Extremities: Moves all 4 spontaneously Neuro: No gross deficits Skin: Warm, dry, no rashes noted Results & Data Vital Signs (Past 12 Hours) Vital Signs Temp Pulse Pulse Pulse Resp BP Pulse Ox 11/13/23 07:00 35.8 C L 77 14 131/82 96 11/13/23 03:01 36.4 C L 70 17 137/91 96 11/12/23 23:16 36.4 C L 69 16 135/86 96 11/12/23 21:45 85 O2 Del Method 11/13/23 07:00 Room Air 11/13/23 03:01 Room Air 11/12/23 23:16 Room Air 11/12/23 21:45 PG Care Time/CCT Total # of Minutes Spent Total Time Spent with Patient: Total time spent is greater than 50% in coordination of care (as documented) at patient's floor/unit and/or counseling patient: Coding Level of Care Code 82549 SUB INP/OBS CARE 2/35MIN Diagnoses UTI (urinary tract infection) N39.0 Right ureteral calculus N20.1
--- NOTE | 2023-11-13 12:22 | Nephrology Consultation ---
Date of Consultation November 13, 2023 Assessment & Plan (1) Acute kidney injury: Non-oliguric. Baseline creatinine ~1.0 mg/dL. Clinical presentation consistent with septic/ischemic ATN. No significant NSAID use reported. Medications are appropriately dosed for kidney function. There is no emergent indication for dialysis. Potential future indications were reviewed with the patient. Continue to document strict I/Os. Repeat metabolic profile tomorrow AM. Maintain even fluid balance - IVF may be stopped. Sara is demonstrating evidence of fluid overload. Diet changed to renal diet (low potassium). (2) Hyperkalemia: Patiromer x 1 dose now. Renal diet. Repeat metabolic profile tomorrow AM. (3) UTI (urinary tract infection): Abx therapy per hospitalist service. Remains on ceftriaxone. Cx +pratt sensitive E coli. Blood culture NGTD. (4) Right ureteral calculus: POD#3 s/p R ureteral stent. Urology follow up. Follow up US demonstrating resolution of hydro. (5) Lymphedema: Feet elevation and compression. Minimize IVFs. (6) Right ovarian cyst: Gynecology follow up will be required. History of Present Illness Reason for Consultation: acute renal failure Requesting Physician: Darrick De La Fuente MD Attending Physician: Darrick De La Fuente MD History of Present Illness Sara Motta is a 63 year-old female with morbid obesity, hypertension, atrial fibrillation, BL LE lymphedema, ovarian cyst, and recurrent kidney stones. She has followed with Dr. Mejia in the [facility] [place] for metabolic stone evaluation. Serum creatinine at baseline is normal (<1 mg/dL). Prior stone analysis -> calcium oxalate. Sara presented to the ER at [facility] on November 09 with right flank and abdominal pain. Evaluation demonstrating an obstructing R UPJ stone. Sara was septic with transient hypotension. Cystoscopy with retrograde pyelogram and stent placement was performed without complications. Follow up US demonstrating resolution of hydronephrosis. Unfortunately, serum creatinine continues to rise. Sara is non-oliguric. Coburn is draining rust colored urine with sediment. IV NS+dextrose infusing. Appetite remains poor. Sara reports progressive fatigue and a generalized weakness. She describes some mild dyspnea with minimal activity. No fevers or chills. She denies persistent pain. Urine culture from admission grew pratt sensitive E coli. Sara is being treated with ceftriaxone and doxycycline. Allergies Allergy/AdvReac Type Severity Reaction Status Date / Time bacitracin Allergy Intermediate Hives Verified 11/10/23 14:57 neomycin Allergy Intermediate Hives Verified 11/10/23 14:57 polymyxin B Allergy Intermediate Hives Verified 11/10/23 14:57 Home Medications Medication Instructions Recorded Confirmed Type vit C,E,zinc,copper-rmbgr6f 250 1 cap PO QAM 02/28/19 11/10/23 History mg-lutein 5 mg-zeaxanthin 1 mg capsule (Ocuvite Adult 50 Plus) doxycycline hyclate 100 mg capsule 100 mg PO QAM #90 caps 11/12/22 11/10/23 Rx dabigatran etexilate 150 mg 150 mg PO BID #180 caps 02/10/23 11/10/23 Rx capsule (Pradaxa) metoprolol tartrate 100 mg tablet 100 mg PO BID #180 tabs 02/10/23 11/10/23 Rx cholecalciferol (vitamin D3) 50 50 mcg PO QAM #90 caps 02/23/23 11/10/23 Rx mcg (2,000 unit) capsule (Vitamin D3) diltiazem HCl 120 mg 120 mg PO QAM #90 caps 05/10/23 11/10/23 Rx capsule,extended release 24 hr vibegron 75 mg tablet (Gemtesa) 75 mg PO QPM #90 tabs 11/01/23 11/10/23 Rx metronidazole 0.75 % topical cream 1 applic topical BID PRN FLARE 11/10/23 11/10/23 History Patient History Medical History Morbid obesity with BMI of 50.0-59.9, adult History of COVID-19 03/2020 > symptoms at time of exhaustion, achiness > resolved Malignant melanoma of skin Kidney stones History of cellulitis hx of recurrent cellulitis/no issues x 1+ years on maintenance doxycycline Hypertension Surgical History History of cystoscopy Cystoscopy, urethral dilation, ureteral stone extraction, stent (01/15/20): MAC at [facility] History of dilatation and curettage D&C, hysteroscopy (03/13/19): Grade 1 view, Glidescope 3.0, ETT 7.0 at [facility] Melanoma s/p excision (RLE)-10-15 YRS AGO BCC (basal cell carcinoma of skin) s/p excision (arm) H/O tooth extraction History of surgery melanoma removal and skin graft right LE History of mandibular surgery No ROM limitations Hx of colonoscopy Family History Mother Diabetes Hypertension Grandfather Myocardial infarction Other No family history of adverse response to anesthesia Denies family history of Ovarian cancer Prostate cancer Breast cancer Colorectal cancer Social History (Updated 07/20/23 @ 16:10 by Lesley Miller LPN) Smoking Status: Never smoker Second Hand Exposure: No; Do You Dip or Chew Tobacco: No; Hx Alcohol Use: Yes Alcohol type: wine Hx Substance Use: No Preferred Language: [place]ese Communication Ability: Effective Visual Impairment: No Limitations Configuration Management Advisor Required: No Beliefs That Will Affect Care: None marital status: Single Current Living Situation: Family Current Living Situation Comment: lives with mother current occupational status: employed 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 Feels Safe at Home: Yes Childhood Exposure to Second-Hand Smoke: No Diet: regular caffeine: Yes Dental Care, Regularly: Yes Seatbelt Use: always Sunscreen Use: Yes Assistive Devices: Cane and Walker Review of Systems Review of Systems: All systems reviewed & are unremarkable except as noted in HPI & below Constitutional: + fatigue and + anorexia; no fever and n o chills Respiratory: + dyspnea on exertion; no cough Gastrointestinal: no abdominal pain, no change in bowel habits and no diarrhea/loose stools Genitourinary: + hematuria Physical Exam Constitutional: well developed and + morbidly obese; no acute distress Eyes: no scleral abnormality and no corneal abnormality ENMT: Mouth: no oral mucosal abnormality and oral mucous membranes not dry Neck: normal visual inspection, trachea midline and + thick neck Respiratory: normal respiratory effort Auscultation: lungs clear to auscultation bilaterally, + rales and + wheezes Cardiovascular: Rate/Rhythm: regular rate Heart Sounds: normal S1 and normal S2 Extremities: + pedal edema and + edema Musculoskeletal: Extremities: no cyanosis and no clubbing Skin: normal turgor; no lesions Neurologic: Motor/Sensory: no tremor and no asterixis Psychiatric: Orientation: alert and oriented x 3 Results & Data Vital Signs (Past 12 Hours) Vital Signs Temp Pulse Pulse Pulse Resp BP Pulse Ox 11/13/23 11:27 36.5 C 71 18 135/85 96 11/13/23 08:00 62 11/13/23 07:00 35.8 C L 77 14 131/82 96 11/13/23 03:01 36.4 C L 70 17 137/91 96 O2 Del Method 11/13/23 11:27 Room Air 11/13/23 08:00 11/13/23 07:00 Room Air 11/13/23 03:01 Room Air Laboratory Results Laboratory Results - last 24 hr 11/12/23 11/13/23 18:42 06:10 WBC 15.79 H RBC 3.93 L Hgb 11.6 L Hct 37.2 MCV 94.7 MCH 29.5 MCHC 31.2 L RDW Std Deviation 50.4 H RDW Coeff of Sujey 14.2 Plt Count 119 L MPV 11.9 Immature Gran % (Auto) 0.4 Neut % (Auto) 86.5 Lymph % (Auto) 5.9 White % (Auto) 5.2 Eos % (Auto) 1.7 Baso % (Auto) 0.3 Neut # (Auto) 13.66 H Lymph # (Auto) 0.93 L White # (Auto) 0.82 H Eos # (Auto) 0.27 Baso # (Auto) 0.05 Immature Gran # (Auto) 0.06 Sodium 139 Potassium 5.3 H Chloride 108 H Carbon Dioxide 24 Anion Gap 7 BUN 55 H Creatinine 3.66 H D Est Cr Clr Drug Dosing 23.6 Est GFR ( Amer) 14.3 Est GFR (Non-Af Amer) 12.3 BUN/Creatinine Ratio 15.0 Glucose 93 Calcium 8.8 Ur Random Creatinine 85.3 Ur Random Sodium 87 Diagnostic Findings RENAL ULTRASOUND (11/12/23) COMPARISON: CT 11/10/2023 Right kidney: 11.1 cm. There is apparent resolution of the previously described right-sided hydronephrosis. Normal corticomedullary differentiation and cortical thickness. Left kidney: 11.6 cm. No hydronephrosis. Normal corticomedullary differentiation and cortical thickness. Bladder: Decompressed with Coburn catheter in place. Limited study secondary to patient body habitus. IMPRESSION: 1. Apparent resolution of the previously described right-sided hydronephrosis. 2. Unremarkable sonographic appearance of the kidneys. 3. Decompressed bladder with Coburn catheter. 4. Limited exam secondary to patient body habitus. ABDOMEN AND PELVIS CT WITHOUT CONTRAST (11/10/23) COMPARISON STUDY: Abdomen and pelvis CT 08/18/2022. FINDINGS: The lung bases are clear. No pneumoperitoneum. No pneumatosis. Bilateral L5 spondylolysis. No acute fractures. The heart is mildly enlarged. The unenhanced liver, spleen, adrenal glands, and pancreas are unremarkable. No retroperitoneal lymphadenopathy. Normal gallbladder. Normal caliber abdominal aorta. No pelvic lymphadenopathy or pelvic free fluid. The bladder, uterus, left ovary are unremarkable. There is again noted a 6.2 cm right ovarian lesion. Stable compared to the prior study. Suboptimal evaluation for bowel pathology due to the lack of intravenous and oral contrast. However, there is no definite bowel wall thickening or obstruction. Normal appendix. A few colonic diverticula. No evidence for acute diverticulitis. There is a punctate stone within the left kidney. There is moderate to severe right hydronephrosis secondary to an obstructing 7 mm stone within the right ureteropelvic junction. Right perinephric and periureteral edema is likely due to the obstruction. No left-sided hydronephrosis or left ureteral calculi. IMPRESSION: 1. A 7 mm obstructing stone within the right ureteropelvic junction resulting in moderate to severe right hydronephrosis. 2. Left-sided nephrolithiasis. 3. No bowel wall thickening or obstruction. 4. Stable 6.2 cm right ovarian lesion. This is considered to be pathologic in a postmenopausal female despite the stability. Gynecologic consultation recommended. PG Care Time/CCT Total # of Minutes Spent Total Time Spent with Patient: Total time spent is greater than 50% in coordination of care (as documented) at patient's floor/unit and/or counseling patient: Coding Level of Care Code 87665 IN/OBS CONSULT LVL 4,60M Diagnoses Acute kidney injury N17.9 Hyperkalemia E87.5 UTI (urinary tract infection) N39.0 Right ureteral calculus N20.1 Lymphedema I89.0 Right ovarian cyst N83.201
--- NOTE | 2023-11-13 12:29 | Hospitalist Progress Note ---
Date of Service November 13, 2023 Assessment & Plan (1) Sepsis: Plan: Transient postprocedural septic shock responsive to IV fluids now resolved. Urine cultures growing pansensitive E. coli. Fortunately, blood cultures are negative. Continue intravenous Rocephin, day 4 (2) Right ureteral calculus: Plan: Urology consultation and recommendations appreciated. Postoperative day 3 after placement of right ureteral stent. Repeat renal ultrasound done on November 11 reveals resolution of the right hydronephrosis that was present on admission (3) Atrial fibrillation with RVR: Plan: Present on admission. Now rate controlled. Telemetry. Continue metoprolol and diltiazem (4) UTI (urinary tract infection): Plan: Present on admission. E. coli isolated. Pansensitive. Continue Rocephin, day 4. Blood cultures remain negative (5) Morbid obesity: Plan: BMI greater than 40. Significant weight loss recommended (6) Demand ischemia: Plan: Troponin elevation without chest pain or significant EKG changes. No evidence of acute coronary syndrome (7) Acute kidney injury: Plan: This appears to be acute renal failure associated with her episode of postprocedural septic shock. Creatinine has risen further to 3.6. Nephrology consultation requested. Fractional excretion of sodium is 2.6. Renal ultrasound looks better however. Right sided hydronephrosis present on admission has now resolved. IV fluids have been tapered down. She probably has some associated ATN causing the creatinine to rise despite adequate IV fluid. Serial labs (8) Hyperkalemia: Plan: Potassium level 5.3 today, November 12. Currently asymptomatic. Will follow Plan Anticipate eventual discharge to home when renal function begins to improve. Hopefully within the next day or 2 Admission and Anticipated Discharge Date Admission Date: November 10, 2023 Subjective Alert and oriented. She feels weak however. Awaiting physical therapy assessment. Creatinine has risen again to 3.6. Nephrology consultation requested. Repeat renal ultrasound shows improvement with resolution of right hydronephrosis present on admission. Fractional excretion of sodium is 2.6. E. coli isolated in the urine which is pansensitive. Blood cultures negative. She is on Rocephin, day 4. White blood cell count is downtrending but still slightly elevated. IV fluids have been tapered down. Potassium is elevated but not critically. Will follow. Review of Systems 2 Review of Systems: Constitutional-no fever or chills. Morbidly obese ENT-no blurred vision, no double vision, no epistaxis, no sore throat Respiratory-no cough, no wheezing, no shortness of breath Cardiac-no palpitations, no chest pain, no syncope GI-no nausea, vomiting, diarrhea, melena, hematochezia -no urinary retention, no urinary incontinence, no dysuria, no hematuria Musculoskeletal-no joint pain, no muscle tenderness Skin-no bruising, no rashes, no pruritus Neuro-no isolated weakness, no paresthesia Psych-no depression, no anxiety Physical Exam 2 Physical Exam: General-alert and oriented x3, no fever, no chills. Morbidly obese HEENT-head atraumatic and normocephalic, pupils equal and reactive to light, extraocular muscles intact Neck-no lymphadenopathy or thyromegaly, trachea midline Chest-clear to auscultation. No rales, wheezing or rhonchi Cardiac-regular rate and rhythm, normal S1 and S2 Abdomen-normal bowel sounds, no hepatosplenomegaly Extremities-chronic bilateral lower extremity edema and chronic venous stasis changes Neuro-cranial nerves II through XII intact, motor and sensory function within normal limits, strength symmetrical, no focal deficits Psych-normal affect, normal mood Results & Data Results & Data Vital Signs (Past 12 Hours) Vital Signs Temp Pulse Pulse Pulse Resp BP Pulse Ox 11/13/23 11:27 36.5 C 71 18 135/85 96 11/13/23 08:00 62 11/13/23 07:00 35.8 C L 77 14 131/82 96 11/13/23 03:01 36.4 C L 70 17 137/91 96 O2 Del Method 11/13/23 11:27 Room Air 11/13/23 08:00 11/13/23 07:00 Room Air 11/13/23 03:01 Room Air Laboratory Results 11/13/23 06:10 11/13/23 06:10 PG Care Time/CCT Total # of Minutes Spent Total Time Spent with Patient: Total time spent is greater than 50% in coordination of care (as documented) at patient's floor/unit and/or counseling patient: Coding Level of Care Code 99907 SUB INP/OBS CARE 3/50MIN Diagnoses Sepsis A41.9 Right ureteral calculus N20.1 Atrial fibrillation with RVR I48.91 UTI (urinary tract infection) N39.0 Morbid obesity E66.01 Demand ischemia I24.89 Acute kidney injury N17.9 Hyperkalemia E87.5
[2023-11-13] MEDS: PATIROMER CALCIUM SORBITEX 8.4 GM PACK PO ONE (13:12)
[2023-11-14 06:19] LABS: Basophils # (auto) 0.08 K/uL (0.00-0.20); Basophils % (auto) 0.7 %; Eosinophils # (auto) 0.49 K/uL (0.00-0.50); Eosinophils % (auto) 4.1 %; Hemoglobin 11.5 g/dl (12.0-16.0); Immature Granulocytes % (auto) 1.7 %; Lymphocytes # (auto) 0.88 K/uL (1.20-3.40); Lymphocytes % (auto) 7.3 %; Mean Corpuscular Hemoglobin 29.5 pg (25.0-34.0); Mean Corpuscular Hgb Conc 31.9 g/dL (32.0-36.0); Mean Corpuscular Volume 92.3 fL (80.0-100.0); Mean Platelet Volume 11.7 fL (9.4-12.4); Monocytes # (auto) 0.73 K/uL (0.11-0.59); Neutrophils # (auto) 9.69 K/uL (1.40-6.50); Neutrophils % (auto) 80.2 %; Platelet Count 121 K/uL (130-400); RDW Coefficient of Variation 14.1 % (11.5-14.5); RDW Standard Deviation 47.8 fL (36.4-46.3); White Blood Count 12.07 K/ul (4.8-10.8)
[2023-11-14 06:39] LABS: BUN Creatinine Ratio 17.3 (10-20); Calcium 8.7 mg/dl (8.6-10.3); Creatinine Clr Calc Pharmacy 24.6 ml/min; Est GFR (African American) 15.2 ml/min; Est GFR (Non-African American) 13.1 ml/min; Potassium 4.7 mmol/L (3.5-5.1)
--- NOTE | 2023-11-14 11:47 | Nephrology Progress Note ---
Date of Service November 14, 2023 Assessment & Plan (1) Acute kidney injury: Plan: Non-oliguric. Baseline creatinine ~1.0 mg/dL. Clinical presentation consistent with septic/ischemic ATN. Creatinine starting to plateau. Electrolytes normal. Medications are appropriately dosed for kidney function. There is no emergent indication for dialysis. Potential future indications were reviewed with the patient. Continue to document strict I/Os. Repeat metabolic profile tomorrow AM. Maintain even to slightly negative fluid balance. Renal diet (low potassium). (2) Hyperkalemia: Plan: Improved. Patiromer x 1 dose yesterday. Renal diet. Repeat metabolic profile tomorrow AM. (3) UTI (urinary tract infection): Plan: Abx therapy per hospitalist service. Remains on ceftriaxone. Cx +pratt sensitive E coli. Blood culture NGTD. (4) Right ureteral calculus: Plan: POD#4 s/p R ureteral stent. (5) Lymphedema: Plan: Feet elevation and compression. Even to slightly negative fluid balance encouraged. Admission and Anticipated Discharge Date Admission Date: November 10, 2023 Subjective No acute events overnight. Sara was resting comfortably in her bedside recliner. She was out of bed with therapy earlier. Describes some generalized weakness. No pain. No fevers or chills. Appetite fair. Mild PAINTER. Denies dyspnea at rest. Some persistent fluid retention in legs. Urine clearing. Review of Systems Review of Systems: All systems reviewed & are unremarkable except as noted in HPI & below Physical Exam Constitutional: well developed and + morbidly obese; no acute distress Eyes: no scleral abnormality and no corneal abnormality ENMT: Mouth: no oral mucosal abnormality and oral mucous membranes not dry Neck: normal visual inspection, trachea midline and + thick neck Respiratory: normal respiratory effort Auscultation: lungs clear to auscultation bilaterally and + wheezes Cardiovascular: Rate/Rhythm: regular rate Heart Sounds: normal S1 and normal S2 Extremities: + pedal edema Musculoskeletal: Extremities: no cyanosis and no clubbing Skin: normal turgor; no lesions Neurologic: Motor/Sensory: no tremor and no asterixis Psychiatric: Orientation: alert and oriented x 3 Results & Data Vital Signs (Past 12 Hours) Vital Signs Temp Pulse Pulse Resp BP Pulse Ox O2 Del Method 11/14/23 07:45 36.4 C L 70 20 121/71 96 Room Air 11/14/23 07:00 67 11/14/23 03:59 36.4 C L 70 16 108/72 96 Room Air Laboratory Results Laboratory Results - last 24 hr 11/14/23 05:41 WBC 12.07 H RBC 3.90 L Hgb 11.5 L Hct 36.0 L MCV 92.3 MCH 29.5 MCHC 31.9 L RDW Std Deviation 47.8 H RDW Coeff of Sujey 14.1 Plt Count 121 L MPV 11.7 Immature Gran % (Auto) 1.7 Neut % (Auto) 80.2 Lymph % (Auto) 7.3 Isabela % (Auto) 6.0 Eos % (Auto) 4.1 Baso % (Auto) 0.7 Neut # (Auto) 9.69 H Lymph # (Auto) 0.88 L Isabela # (Auto) 0.73 H Eos # (Auto) 0.49 Baso # (Auto) 0.08 Immature Gran # (Auto) 0.20 Sodium 139 Potassium 4.7 Chloride 110 H Carbon Dioxide 22 Anion Gap 7 BUN 60 H Creatinine 3.47 H Est Cr Clr Drug Dosing 24.6 Est GFR ( Amer) 15.2 Est GFR (Non-Af Amer) 13.1 BUN/Creatinine Ratio 17.3 Glucose 72 Calcium 8.7 PG Care Time/CCT Total # of Minutes Spent Total Time Spent with Patient: Total time spent is greater than 50% in coordination of care (as documented) at patient's floor/unit and/or counseling patient: Coding Level of Care Code 96827 SUB INP/OBS CARE 3/50MIN Diagnoses Acute kidney injury N17.9 Hyperkalemia E87.5 UTI (urinary tract infection) N39.0 Right ureteral calculus N20.1 Lymphedema I89.0
--- NOTE | 2023-11-14 14:59 | Hospitalist Progress Note ---
Date of Service November 14, 2023 Assessment & Plan (1) Sepsis: Plan: Transient postprocedural septic shock responsive to IV fluids now resolved. Urine cultures growing pansensitive E. coli. Fortunately, blood cultures are negative. Currently on Rocephin, day 5 (2) Right ureteral calculus: Plan: Urology consultation and recommendations appreciated. Postoperative day 4 after placement of right ureteral stent. Repeat renal ultrasound done on November 11 reveals resolution of the right hydronephrosis that was present on admission (3) Atrial fibrillation with RVR: Plan: Present on admission. Now rate controlled. Telemetry. Continue metoprolol and diltiazem (4) UTI (urinary tract infection): Plan: Present on admission. E. coli isolated. Pansensitive. Currently on Rocephin, day 5. Blood cultures remain negative (5) Morbid obesity: Plan: BMI greater than 40. Significant weight loss recommended (6) Demand ischemia: Plan: Troponin elevation without chest pain or significant EKG changes. No evidence of acute coronary syndrome (7) Acute kidney injury: Plan: This appears to be acute renal failure from ATN associated with her episode of postprocedural septic shock. Creatinine is now beginning to trend downward, 3.4 today, November 13. Nephrology consultation and recommendations appreciated. Fractional excretion of sodium is 2.6. Second renal ultrasound looks better with resolution of right-sided hydronephrosis that was present on admission. IV fluids have now been discontinued. Serial labs (8) Hyperkalemia: Plan: Potassium level has improved to 4 point 1:07 dose of Berta MR given yesterday, November 12. Serial labs. Plan Hopeful discharge to home tomorrow, November 14 Admission and Anticipated Discharge Date Admission Date: November 10, 2023 Subjective Alert and oriented. No distress. Nephrology entry noted. Creatinine has now beginning to improve, 3.4 today November 13. Potassium down to 4 point 1:07 dose of Patri Kike given yesterday, November 12. Physical therapy evaluation pending. Rocephin, day 5, for E. coli isolated in the urine. Blood cultures remain negative. White blood cell count is trending down. Hypoglycemia present on admission has now resolved. Review of Systems 2 Review of Systems: Constitutional-no fever or chills. Morbidly obese ENT-no blurred vision, no double vision, no epistaxis, no sore throat Respiratory-no cough, no wheezing, no shortness of breath Cardiac-no palpitations, no chest pain, no syncope GI-no nausea, vomiting, diarrhea, melena, hematochezia -no urinary retention, no urinary incontinence, no dysuria, no hematuria Musculoskeletal-no joint pain, no muscle tenderness Skin-no bruising, no rashes, no pruritus Neuro-no isolated weakness, no paresthesia Psych-no depression, no anxiety Physical Exam 2 Physical Exam: General-alert and oriented x3, no fever, no chills. Morbidly obese HEENT-head atraumatic and normocephalic, pupils equal and reactive to light, extraocular muscles intact Neck-no lymphadenopathy or thyromegaly, trachea midline Chest-clear to auscultation. No rales, wheezing or rhonchi Cardiac-regular rate and rhythm, normal S1 and S2 Abdomen-normal bowel sounds, no hepatosplenomegaly Extremities-chronic bilateral lower extremity edema and chronic venous stasis changes Neuro-cranial nerves II through XII intact, motor and sensory function within normal limits, strength symmetrical, no focal deficits Psych-normal affect, normal mood Results & Data Results & Data Vital Signs (Past 12 Hours) Vital Signs Temp Pulse Pulse Resp BP Pulse Ox O2 Del Method 11/14/23 11:54 36.4 C L 69 18 133/75 94 Room Air 11/14/23 07:45 36.4 C L 70 20 121/71 96 Room Air 11/14/23 07:00 67 11/14/23 03:59 36.4 C L 70 16 108/72 96 Room Air Laboratory Results 11/14/23 05:41 11/14/23 05:41 PG Care Time/CCT Total # of Minutes Spent Total Time Spent with Patient: Total time spent is greater than 50% in coordination of care (as documented) at patient's floor/unit and/or counseling patient: Coding Level of Care Code 47348 SUB INP/OBS CARE 3/50MIN Diagnoses Sepsis A41.9 Right ureteral calculus N20.1 Atrial fibrillation with RVR I48.91 UTI (urinary tract infection) N39.0 Morbid obesity E66.01 Demand ischemia I24.89 Acute kidney injury N17.9 Hyperkalemia E87.5
[2023-11-15 07:31] LABS: Hematocrit (blood only) 34.4 % (37.0-47.0); Mean Corpuscular Hemoglobin 29.5 pg (25.0-34.0); Mean Corpuscular Volume 92.2 fL (80.0-100.0); Mean Platelet Volume 12.1 fL (9.4-12.4); Platelet Count 119 K/uL (130-400); RDW Coefficient of Variation 13.9 % (11.5-14.5); Red Blood Count 3.73 M/uL (4.20-5.40); White Blood Count 9.69 K/ul (4.8-10.8)
[2023-11-15 07:45] LABS: BUN Creatinine Ratio 19.8 (10-20); Calcium 8.5 mg/dl (8.6-10.3); Creatinine Clr Calc Pharmacy 27.8 ml/min; Est GFR (African American) 17.6 ml/min; Est GFR (Non-African American) 15.2 ml/min; Potassium 4.7 mmol/L (3.5-5.1)
[2023-11-15 07:53] LABS: Basophils # (auto) 0.06 K/uL (0.00-0.20); Basophils % (auto) 0.6 %; Eosinophils # (auto) 0.49 K/uL (0.00-0.50); Eosinophils % (auto) 5.1 %; Immature Granulocytes # (auto) 0.61 K/uL (0.01-0.20); Immature Granulocytes % (auto) 6.3 %; Lymphocytes # (auto) 0.78 K/uL (1.20-3.40); Monocytes # (auto) 1.09 K/uL (0.11-0.59); Monocytes % (auto) 11.2 %; Neutrophils # (auto) 6.66 K/uL (1.40-6.50); Neutrophils % (auto) 68.8 %
--- NOTE | 2023-11-15 09:35 | Nephrology Progress Note ---
Date of Service November 15, 2023 Assessment & Plan (1) Acute kidney injury: Plan: Non-oliguric. Baseline creatinine ~1.0 mg/dL. Clinical presentation consistent with septic/ischemic ATN. Creatinine starting to improve. Electrolytes normal. Medications are appropriately dosed for kidney function. There is no emergent indication for dialysis. Potential future indications were reviewed with the patient. Continue to document strict I/Os. Repeat metabolic profile tomorrow AM. Maintain even to slightly negative fluid balance. Renal diet (low potassium). (2) UTI (urinary tract infection): Plan: Abx therapy per hospitalist service. Remains on ceftriaxone. Cx +pratt sensitive E coli. Blood culture NGTD. (3) Right ureteral calculus: Plan: POD#5 s/p R ureteral stent. (4) Lymphedema: Plan: Feet elevation and compression. Even to slightly negative fluid balance encouraged. Admission and Anticipated Discharge Date Admission Date: November 10, 2023 Subjective No acute events overnight. Sara was resting comfortably in bed this AM. Coburn draining slightly cloudy yellow urine. Good urine output. No fevers or chills. Breathing comfortably. Review of Systems Review of Systems: All systems reviewed & are unremarkable except as noted in HPI & below Physical Exam Constitutional: well developed and + morbidly obese; no acute distress Eyes: no scleral abnormality and no corneal abnormality ENMT: Mouth: no oral mucosal abnormality and oral mucous membranes not dry Neck: normal visual inspection, trachea midline and + thick neck Respiratory: normal respiratory effort Auscultation: lungs clear to auscultation bilaterally Cardiovascular: Rate/Rhythm: regular rate Heart Sounds: normal S1 and normal S2 Extremities: + edema Musculoskeletal: Extremities: no cyanosis and no clubbing Skin: normal turgor; no lesions Neurologic: Motor/Sensory: no tremor and no asterixis Psychiatric: Orientation: alert and oriented x 3 Results & Data Vital Signs (Past 12 Hours) Vital Signs Temp Pulse Pulse Resp BP Pulse Ox O2 Del Method 11/15/23 07:56 36.4 C L 56 L 17 129/81 94 Room Air 11/15/23 03:35 36.8 C 61 16 121/78 96 Room Air 11/14/23 23:03 36.4 C L 59 L 16 106/79 97 Room Air 11/14/23 22:00 69 Laboratory Results Laboratory Results - last 24 hr 11/15/23 06:42 WBC 9.69 RBC 3.73 L Hgb 11.0 L Hct 34.4 L MCV 92.2 MCH 29.5 MCHC 32.0 RDW Std Deviation 47.0 H RDW Coeff of Sujey 13.9 Plt Count 119 L MPV 12.1 Immature Gran % (Auto) 6.3 Neut % (Auto) 68.8 Lymph % (Auto) 8.0 [place] % (Auto) 11.2 Eos % (Auto) 5.1 Baso % (Auto) 0.6 Neut # (Auto) 6.66 H Lymph # (Auto) 0.78 L [place] # (Auto) 1.09 H Eos # (Auto) 0.49 Baso # (Auto) 0.06 Immature Gran # (Auto) 0.61 H Sodium 139 Potassium 4.7 Chloride 109 H Carbon Dioxide 25 Anion Gap 5 BUN 61 H Creatinine 3.08 H D Est Cr Clr Drug Dosing 27.8 Est GFR ( Amer) 17.6 Est GFR (Non-Af Amer) 15.2 BUN/Creatinine Ratio 19.8 Glucose 65 L Calcium 8.5 L PG Care Time/CCT Total # of Minutes Spent Total Time Spent with Patient: Total time spent is greater than 50% in coordination of care (as documented) at patient's floor/unit and/or counseling patient: Coding Level of Care Code 45077 SUB INP/OBS CARE 3/50MIN Diagnoses Acute kidney injury N17.9 UTI (urinary tract infection) N39.0 Right ureteral calculus N20.1 Lymphedema I89.0
--- NOTE | 2023-11-15 11:47 | Hospitalist Progress Note ---
Date of Service November 15, 2023 Assessment & Plan (1) Sepsis: Plan: P/w right ureterolithiasis and hydronephrosis, UTI, sepsis Went urgently for right ureteral stent placement on 11/09, Coburn left in place Transient postprocedural septic shock responsive to IV fluids and 2 doses of phenylephrine now resolved. Urine cultures growing pansensitive E. coli, blood cultures are negative Leukocytosis resolved, platelets remain mildly low likely from sepsis, afebrile Continue ceftriaxone x 10 days (switch to po Augmentin on discharge)-last day of tx 11/23/23 Repeat renal US shows resolution of hydronephrosis With KENYON as a result of hypotension/ATN Follow CBC, BMP (2) UTI (urinary tract infection): Plan: Present on admission. E. coli Pansensitive as above (3) Acute kidney injury: Plan: This appears to be acute renal failure from ATN associated with her episode of postprocedural septic shock. FeNa 2.6% Creatinine peaked at 3.6 and now continues to trend downward to 3.0 With associated hyperkalemia now resolved with Patiromer No longer on IVFs, has good urine output, Coburn in place, Renal US with resolved hydronephrosis after ureteral stent placed Nephrology consultation and recommendations appreciated Follow BMP Avoid nephrotoxins-dc IV morphine (4) Oral herpes simplex infection: Plan: add on topical acyclovir, avoid po valtrex at this time due to risk of ATN (5) Right ureteral calculus: Plan: With ureteral stent in place. Needs ongoing Urology follow up for definitive stone treatment and stent removal after sepsis treated (6) Atrial fibrillation with RVR: Plan: Present on admission. Now rate controlled. Her diltiazem has been on hold since admission due to previous hypotension-rates controlled on metoprolol alone Continue tele monitoring Continue Pradaxa (7) Demand ischemia: Plan: Troponin elevation without chest pain or significant EKG changes. Trop up to 344 and not repeated but is asymptomatic No evidence of acute coronary syndrome (8) Morbid obesity: Plan: BMI greater than 40. Significant weight loss recommended Plan Right ovarian cyst-followed by CLINICAL SUPERVISOR in the past--> stable in size from previous DVT proph-Pradaxa Dispo-continued stay on tele PT recommends acute rehab, needs OT. Will need rehab referrals placed-ordered case management consult Admission and Anticipated Discharge Date Admission Date: November 10, 2023 Subjective Pt feeling a little better each day. Still feels weak but is getting to the bathroom and back with assistance. Is making urine, moving bowels, eating. Denies CP, SOB, nausea, abd pain Developed cold sores on her lips through the weekend which is common for her Tele with Afib, rates 60-70s, brief dips to the 40s Physical Exam Constitutional: WD/WN, vitals as above + morbidly obese Respiratory: normal respiratory effort, lungs clear to auscultation Cardiovascular: Rate/Rhythm: regular rate and + irregularly irregular Heart Sounds: no murmur Extremities: + edema (chronic appearing lymphedema) Gastrointestinal (Abdomen): normal bowel sounds, soft, nontender, no hepatosplenomegaly Skin: + lesion (lips with multiple vesicular,c rusted/scabbed lesions) Psychiatric: A+Ox3, euthymic affect Genitourinary: + abnormal external appearance (Coburn in place with dark yellow urine) Results & Data Results & Data Vital Signs (Past 12 Hours) Vital Signs Temp Pulse Pulse Resp BP Pulse Ox O2 Del Method 11/15/23 07:56 36.4 C L 56 L 17 129/81 94 Room Air 11/15/23 07:00 61 11/15/23 03:35 36.8 C 61 16 121/78 96 Room Air Laboratory Results CBC, BMP reviewed PG Care Time/CCT Total # of Minutes Spent Total Time Spent with Patient: Total time spent is greater than 50% in coordination of care (as documented) at patient's floor/unit and/or counseling patient: Coding Level of Care Code 40884 SUB INP/OBS CARE 3/50MIN Diagnoses Sepsis A41.9 UTI (urinary tract infection) N39.0 Acute kidney injury N17.9 Oral herpes simplex infection B00.2 Right ureteral calculus N20.1 Atrial fibrillation with RVR I48.91 Demand ischemia I24.89 Morbid obesity E66.01
[2023-11-15] MEDS: ACYCLOVIR 5% OINT 15 GM TUBE EXT SCH (15:03)
[2023-11-16 06:29] LABS: Hematocrit (blood only) 36.3 % (37.0-47.0); Hemoglobin 11.6 g/dl (12.0-16.0); Mean Corpuscular Hemoglobin 29.4 pg (25.0-34.0); Mean Corpuscular Volume 92.1 fL (80.0-100.0); Mean Platelet Volume 11.8 fL (9.4-12.4); Platelet Count 146 K/uL (130-400); RDW Coefficient of Variation 13.9 % (11.5-14.5); RDW Standard Deviation 47.3 fL (36.4-46.3); Red Blood Count 3.94 M/uL (4.20-5.40); White Blood Count 8.91 K/ul (4.8-10.8)
[2023-11-16 06:52] LABS: BUN Creatinine Ratio 22.3 (10-20); Calcium 8.5 mg/dl (8.6-10.3); Creatinine Clr Calc Pharmacy 35.9 ml/min; Est GFR (Non-African American) 20.7 ml/min; Potassium 4.5 mmol/L (3.5-5.1)
[2023-11-16 06:58] LABS: Polychromasia 1+
[2023-11-16 07:18] LABS: ALC (manual) 0.71 K/uL (1.2-3.4); ANC (manual) 6.68 K/uL (1.4-6.5); Eosinophils # (manual) 0.27 K/uL (0-0.50); Eosinophils % (manual) 3 %; Lymphocytes # (manual) 0.71 K/uL (1.2-3.4); Lymphocytes % (manual) 8 %; Metamyelocytes # (manual) 0.62 K/uL (0-0); Metamyelocytes % (manual) 7 %; Monocytes # (manual) 0.62 K/uL (0.11-0.59); Monocytes % (manual) 7 %; Neutrophils # (manual) 6.68 K/uL (1.40-6.50); Neutrophils % (manual) 75 %
--- NOTE | 2023-11-16 10:08 | Nephrology Progress Note ---
Date of Service November 16, 2023 Assessment & Plan (1) Acute kidney injury: Plan: Non-oliguric. Baseline creatinine ~1.0 mg/dL. Clinical presentation consistent with septic/ischemic ATN. Creatinine improving. Electrolytes normal. Medications are appropriately dosed for kidney function. Continue to document strict I/Os. Repeat metabolic profile tomorrow AM. Maintain even to slightly negative fluid balance. Renal diet (low potassium). (2) UTI (urinary tract infection): Plan: Abx therapy per hospitalist service. Remains on ceftriaxone. Cx +pratt sensitive E coli. Blood culture NGTD. (3) Right ureteral calculus: Plan: POD#6 s/p R ureteral stent. (4) Lymphedema: Plan: Feet elevation and compression. Even to slightly negative fluid balance encouraged. Admission and Anticipated Discharge Date Admission Date: November 10, 2023 Subjective No acute events overnight. Sara is resting comfortably in bed. She endorses some fluid retention and edema. No shortness of breath. Urine in clearing with some sediment in Coburn bag. Review of Systems Review of Systems: All systems reviewed & are unremarkable except as noted in HPI & below Physical Exam Constitutional: well developed and + morbidly obese; no acute distress Eyes: no scleral abnormality and no corneal abnormality ENMT: Mouth: no oral mucosal abnormality and oral mucous membranes not dry Neck: normal visual inspection, trachea midline and + thick neck Respiratory: normal respiratory effort Auscultation: lungs clear to auscultation bilaterally Cardiovascular: Rate/Rhythm: regular rate Heart Sounds: normal S1 and normal S2 Extremities: + edema Musculoskeletal: Extremities: no cyanosis and no clubbing Skin: normal turgor; no lesions Neurologic: Motor/Sensory: no tremor and no asterixis Psychiatric: Orientation: alert and oriented x 3 Results & Data Vital Signs (Past 12 Hours) Vital Signs Temp Pulse Pulse Pulse Resp BP Pulse Ox 11/16/23 07:38 36.6 C 72 16 107/66 97 11/16/23 02:41 36.5 C 58 L 17 111/66 96 11/16/23 01:02 61 O2 Del Method 11/16/23 07:38 Room Air 11/16/23 02:41 Room Air 11/16/23 01:02 Laboratory Results Laboratory Results - last 24 hr 11/16/23 05:27 WBC 8.91 RBC 3.94 L Hgb 11.6 L Hct 36.3 L MCV 92.1 MCH 29.4 MCHC 32.0 RDW Std Deviation 47.3 H RDW Coeff of Sujey 13.9 Plt Count 146 MPV 11.8 Neutrophils % (Manual) 75 Lymphocytes % (Manual) 8 Monocytes % (Manual) 7 Eosinophils % (Manual) 3 Metamyelocytes % (Man) 7 Neutrophils # (Manual) 6.68 H Total Absolute Neuts 6.68 H Lymphocytes # (Manual) 0.71 L Total Abs Lymphocytes 0.71 L Monocytes # (Manual) 0.62 H Eosinophils # (Manual) 0.27 Metamyelocytes # (Man) 0.62 H Polychromasia 1+ Sodium 139 Potassium 4.5 Chloride 110 H Carbon Dioxide 23 Anion Gap 6 BUN 53 H Creatinine 2.38 H D Est Cr Clr Drug Dosing 35.9 Est GFR ( Amer) 24.0 Est GFR (Non-Af Amer) 20.7 BUN/Creatinine Ratio 22.3 H Glucose 67 L Calcium 8.5 L PG Care Time/CCT Total # of Minutes Spent Total Time Spent with Patient: Total time spent is greater than 50% in coordination of care (as documented) at patient's floor/unit and/or counseling patient: Coding Level of Care Code 33028 SUB INP/OBS CARE 3/50MIN Diagnoses Acute kidney injury N17.9 UTI (urinary tract infection) N39.0 Right ureteral calculus N20.1 Lymphedema I89.0
--- NOTE | 2023-11-16 14:08 | Hospitalist Progress Note ---
Date of Service November 16, 2023 Assessment & Plan (1) Sepsis: Plan: P/w right ureterolithiasis and hydronephrosis, UTI, sepsis Went urgently for right ureteral stent placement on 11/09, Coburn left in place Transient postprocedural septic shock responsive to IV fluids and 2 doses of phenylephrine now resolved. Urine cultures growing pansensitive E. coli, blood cultures are negative Leukocytosis resolved, platelets mildly low likely from sepsis but now normalized, remains afebrile Continue ceftriaxone x 10 days (switch to po Augmentin on discharge)-last day of tx 11/23/23 Repeat renal US shows resolution of hydronephrosis With KENYON as a result of hypotension/ATN Follow CBC, BMP Remove Coburn in AM of 11/17/23 F/u as outpt with Urol for stone and stent management (2) UTI (urinary tract infection): Plan: Present on admission. E. coli Pansensitive as above (3) Acute kidney injury: Plan: This appears to be acute renal failure from ATN associated with her episode of postprocedural septic shock. FeNa 2.6% Creatinine peaked at 3.6 and improving daily, with good urine output picking up each day. Research Staff Member now down to 2.3 With associated hyperkalemia now resolved with Patiromer No longer on IVFs, has good urine output, Coburn in place, Renal US with resolved hydronephrosis after ureteral stent placed Nephrology consultation and recommendations appreciated Follow BMP Avoid nephrotoxins, renally dose meds Aim for even fluid balance. Try compression for edema in legs (4) Oral herpes simplex infection: Plan: Continue on topical acyclovir, avoid po valtrex at this time due to risk of ATN (5) Right ureteral calculus: Plan: With ureteral stent in place. Needs ongoing Urology follow up for definitive stone treatment and stent removal after sepsis treated (6) Atrial fibrillation with RVR: Plan: Present on admission. Now rate controlled. Her diltiazem has been on hold since admission due to previous hypotension-rates controlled on metoprolol alone can dc tele monitoring Continue Pradaxa at renal dosing, can increase dose back to 150mg bid once renal function improved (7) Demand ischemia: Plan: Troponin elevation without chest pain or significant EKG changes. Trop up to 344 and not repeated but is asymptomatic No evidence of acute coronary syndrome (8) Morbid obesity: Plan: BMI greater than 40. Significant weight loss recommended Plan Right ovarian cyst-followed by MARKSMANSH[employer] INSTRUCTOR in the past--> stable in size from previous DVT proph-Pradaxa Dispo-medically stable for discharge to acute rehab, awaiting insurance auth for [facility]. Can downgrade to med/surg unit Admission and Anticipated Discharge Date Admission Date: November 10, 2023 Subjective Pt reports increased swelling in the legs that is painful to the touch. I also discussed removal of her Coburn and she is hesitant because of urinary incontinence. D/w Urology who is ok with removal of Coburn-will plan for tomorrow AM.Otherwise no CP, no SOB. Tele with Afib, rates 50-70s Physical Exam Constitutional: WD/WN, vitals as above + morbidly obese Respiratory: normal respiratory effort, lungs clear to auscultation Cardiovascular: Rate/Rhythm: regular rate and + irregularly irregular Heart Sounds: no murmur Extremities: + edema (chronic appearing lymphedema worse than previous) Gastrointestinal (Abdomen): normal bowel sounds, soft, nontender, no hepatosplenomegaly Skin: + lesion (lips with multiple vesicular,c rusted/scabbed lesions) Psychiatric: A+Ox3, euthymic affect Genitourinary: + abnormal external appearance (Coburn in place with dark yellow urine) Results & Data Results & Data Vital Signs (Past 12 Hours) Vital Signs Temp Pulse Pulse Pulse Resp BP Pulse Ox 11/16/23 11:03 36.6 C 62 18 122/68 97 11/16/23 09:53 11/16/23 08:00 52 L 11/16/23 07:38 36.6 C 72 16 107/66 97 11/16/23 02:41 36.5 C 58 L 17 111/66 96 O2 Del Method 11/16/23 11:03 Room Air 11/16/23 09:53 Room Air 11/16/23 08:00 11/16/23 07:38 Room Air 11/16/23 02:41 Room Air Laboratory Results CBC, BMP reviewed PG Care Time/CCT Total # of Minutes Spent Total Time Spent with Patient: Total time spent is greater than 50% in coordination of care (as documented) at patient's floor/unit and/or counseling patient: Coding Level of Care Code 34857 SUB INP/OBS CARE 2/35MIN Diagnoses Sepsis A41.9 UTI (urinary tract infection) N39.0 Acute kidney injury N17.9 Oral herpes simplex infection B00.2 Right ureteral calculus N20.1 Atrial fibrillation with RVR I48.91 Demand ischemia I24.89 Morbid obesity E66.01
[2023-11-17 08:36] LABS: Hemoglobin 11.9 g/dl (12.0-16.0); Mean Corpuscular Hemoglobin 29.3 pg (25.0-34.0); Mean Corpuscular Hgb Conc 31.3 g/dL (32.0-36.0); Mean Corpuscular Volume 93.6 fL (80.0-100.0); Mean Platelet Volume 10.8 fL (9.4-12.4); Platelet Count 182 K/uL (130-400); RDW Coefficient of Variation 14.2 % (11.5-14.5); RDW Standard Deviation 49.1 fL (36.4-46.3); Red Blood Count 4.06 M/uL (4.20-5.40); White Blood Count 9.79 K/ul (4.8-10.8)
[2023-11-17 09:00] LABS: ALC (manual) 0.39 K/uL (1.2-3.4); ANC (manual) 7.93 K/uL (1.4-6.5); BUN Creatinine Ratio 25.3 (10-20); Calcium 8.5 mg/dl (8.6-10.3); Creatinine Clr Calc Pharmacy 50.2 ml/min; Eosinophils % (manual) 2 %; Est GFR (Non-African American) 31.1 ml/min; Lymphocytes # (manual) 0.39 K/uL (1.2-3.4); Lymphocytes % (manual) 4 %; Metamyelocytes # (manual) 0.49 K/uL (0-0); Metamyelocytes % (manual) 5 %; Monocytes # (manual) 0.59 K/uL (0.11-0.59); Monocytes % (manual) 6 %; Myelocytes % (manual) 2 %; Neutrophils # (manual) 7.93 K/uL (1.40-6.50); Neutrophils % (manual) 81 %; Potassium 4.3 mmol/L (3.5-5.1)
--- NOTE | 2023-11-17 10:29 | Nephrology Progress Note ---
Date of Service November 17, 2023 Assessment & Plan (1) Acute kidney injury: Plan: Non-oliguric. Baseline creatinine ~1.0 mg/dL. Clinical presentation consistent with septic/ischemic ATN. Creatinine improving. Electrolytes normal. Medications are appropriately dosed for kidney function. Continue to document strict I/Os. Repeat metabolic profile tomorrow AM. Maintain even to slightly negative fluid balance. Renal diet (low potassium). (2) UTI (urinary tract infection): Plan: Abx therapy per hospitalist service. Remains on ceftriaxone. Cx +pratt sensitive E coli. (3) Right ureteral calculus: Plan: POD#7 s/p R ureteral stent. (4) Lymphedema: Plan: Feet elevation and compression. Even to slightly negative fluid balance encouraged. Diuretic option held pending additional monitoring. Admission and Anticipated Discharge Date Admission Date: November 10, 2023 Subjective No acute events overnight. Sara feels well this AM. LE edema persists. She is breathing comfortably. Review of Systems Review of Systems: All systems reviewed & are unremarkable except as noted in HPI & below Physical Exam Constitutional: well developed and + morbidly obese; no acute distress Eyes: no scleral abnormality and no corneal abnormality ENMT: Mouth: no oral mucosal abnormality and oral mucous membranes not dry Neck: normal visual inspection, trachea midline and + thick neck Respiratory: normal respiratory effort Auscultation: lungs clear to auscultation bilaterally (anteriorly) Cardiovascular: Rate/Rhythm: regular rate Heart Sounds: normal S1 and normal S2 Extremities: + edema Musculoskeletal: Extremities: no cyanosis and no clubbing Skin: normal turgor; no lesions Neurologic: Motor/Sensory: no tremor and no asterixis Psychiatric: Orientation: alert and oriented x 3 Results & Data Vital Signs (Past 12 Hours) Vital Signs Temp Pulse Resp BP Pulse Ox O2 Del Method 11/17/23 07:26 36.6 C 73 18 112/70 97 Room Air Laboratory Results Laboratory Results - last 24 hr 11/17/23 08:09 WBC 9.79 RBC 4.06 L Hgb 11.9 L Hct 38.0 MCV 93.6 MCH 29.3 MCHC 31.3 L RDW Std Deviation 49.1 H RDW Coeff of Sujey 14.2 Plt Count 182 MPV 10.8 Neutrophils % (Manual) 81 Lymphocytes % (Manual) 4 Monocytes % (Manual) 6 Eosinophils % (Manual) 2 Metamyelocytes % (Man) 5 Myelocytes % (Man) 2 Neutrophils # (Manual) 7.93 H Total Absolute Neuts 7.93 H Lymphocytes # (Manual) 0.39 L Total Abs Lymphocytes 0.39 L Monocytes # (Manual) 0.59 Eosinophils # (Manual) 0.20 Metamyelocytes # (Man) 0.49 H Myelocytes # (Manual) 0.20 H Sodium 139 Potassium 4.3 Chloride 109 H Carbon Dioxide 25 Anion Gap 5 BUN 43 H Creatinine 1.70 H D Est Cr Clr Drug Dosing 50.2 Est GFR ( Amer) 36.0 Est GFR (Non-Af Amer) 31.1 BUN/Creatinine Ratio 25.3 H Glucose 78 Calcium 8.5 L PG Care Time/CCT Total # of Minutes Spent Total Time Spent with Patient: Total time spent is greater than 50% in coordination of care (as documented) at patient's floor/unit and/or counseling patient: Coding Level of Care Code 98409 SUB INP/OBS CARE 3/50MIN Diagnoses Acute kidney injury N17.9 UTI (urinary tract infection) N39.0 Right ureteral calculus N20.1 Lymphedema I89.0
--- NOTE | 2023-11-17 16:57 | Hospitalist Progress Note ---
Date of Service November 17, 2023 Assessment & Plan (1) Sepsis: Plan: P/w right ureterolithiasis and hydronephrosis, UTI, sepsis Went urgently for right ureteral stent placement on 11/09, Coburn left in place but now removed on 11/16 Transient postprocedural septic shock responsive to IV fluids and 2 doses of phenylephrine now resolved. Urine cultures growing pansensitive E. coli, blood cultures are negative Leukocytosis resolved, platelets mildly low likely from sepsis but now normalized, remains afebrile Will now complete 7-day course of ceftriaxone-cut treatment short due to drug eruption all over and 7 days should be sufficient anyway Repeat renal US shows resolution of hydronephrosis With KENYON as a result of hypotension/ATN now improving Follow CBC, BMP F/u as outpt with Urol for stone and stent management (2) UTI (urinary tract infection): Plan: Present on admission. E. coli Pansensitive as above (3) Acute kidney injury: Plan: Secondary to ATN associated with her episode of postprocedural septic shock. FeNa 2.6% Initially received IV fluids which have since been stopped Renal US with resolved hydronephrosis after ureteral stent placed Creatinine peaked at 3.6 and now down to creatinine 1.70, remains with good urine output but with worsening lower extremity edema-discussed with nephrology- okay to give Lasix 20 Mg IV x 1 With associated hyperkalemia now resolved with Patiromer Nephrology consultation and recommendations appreciated Follow BMP Avoid nephrotoxins, renally dose meds Aim for even fluid balance. Try compression for edema in legs and giving Lasix Continues to improve (4) Drug eruption: Plan: With diffuse drug eruption rash that is pruritic all over her body, likely secondary to ceftriaxone Discontinue ceftriaxone Start Zyrtec 10 mg p.o. twice daily, no need for steroids at this point Added ceftriaxone 2 allergies (5) Oral herpes simplex infection: Plan: Continue on topical acyclovir, avoid po valtrex at this time due to risk of ATN (6) Right ureteral calculus: Plan: With ureteral stent in place. Needs ongoing Urology follow up for definitive stone treatment and stent removal after sepsis treated (7) Atrial fibrillation with RVR: Plan: Present on admission. Now rate controlled. Her diltiazem has been on hold since admission due to previous hypotension-rates controlled on metoprolol alone Have since discontinued tele monitoring Continue Pradaxa but can increase dose back to 150mg bid now that renal function improved (8) Demand ischemia: Plan: Troponin elevation without chest pain or significant EKG changes. Trop up to 344 and not repeated but is asymptomatic No evidence of acute coronary syndrome (9) Morbid obesity: Plan: BMI greater than 40. Significant weight loss recommended Plan Right ovarian cyst-followed by EXPERIENCE SPECIALIST in the past--> stable in size from previous DVT proph-Pradaxa Dispo-medically stable for discharge to acute rehab, awaiting insurance auth for [facility]. Did peer to peer call for [facility] and awaiting callback Admission and Anticipated Discharge Date Admission Date: November 10, 2023 Subjective Patient developed a red itchy rash all over her back, arms and legs today. No shortness of breath or lip or tongue swelling. Coburn catheter was removed and she is voiding independently She still complains of a lot of swelling causing pain in her feet and legs Physical Exam Constitutional: WD/WN, vitals as above + morbidly obese Respiratory: normal respiratory effort, lungs clear to auscultation Cardiovascular: Rate/Rhythm: regular rate and + irregularly irregular Heart Sounds: no murmur Extremities: + edema ( lymphedema plus 3+ pitting edema feet and legs worse than previous) Gastrointestinal (Abdomen): normal bowel sounds, soft, nontender, no hepatosplenomegaly Skin: + rash (Diffuse macular erythematous vee h on back, arms and thighs) and + lesion (lips with multiple vesicular,crusted/scabbed lesions) Psychiatric: A+Ox3, euthymic affect Results & Data Results & Data Vital Signs (Past 12 Hours) Vital Signs Temp Pulse Pulse Resp BP Pulse Ox O2 Del Method 11/17/23 14:58 36.6 C 73 16 122/69 97 Room Air 11/17/23 11:32 36.7 C 90 18 104/70 94 Room Air 11/17/23 07:26 36.6 C 73 18 112/70 97 Room Air Laboratory Results CBC, BMP reviewed PG Care Time/CCT Total # of Minutes Spent Total Time Spent with Patient: Total time spent is greater than 50% in coordination of care (as documented) at patient's floor/unit and/or counseling patient: Coding Level of Care Code 34613 SUB INP/OBS CARE 2/35MIN Diagnoses Sepsis A41.9 UTI (urinary tract infection) N39.0 Acute kidney injury N17.9 Drug eruption L27.0 Oral herpes simplex infection B00.2 Right ureteral calculus N20.1 Atrial fibrillation with RVR I48.91 Demand ischemia I24.89 Morbid obesity E66.01
[2023-11-17] MEDS: FUROSEMIDE INJ 20 MG/2 ML VIAL IV ONE (17:11)
[2023-11-17] MEDS: CETIRIZINE HCL 10 MG TABLET PO SCH (18:10)
[2023-11-17] MEDS: DABIGATRAN ETEXILATE 75 MG CAP PO SCH (20:21)
[2023-11-18 11:13] LABS: Hematocrit (blood only) 39.9 % (37.0-47.0); Hemoglobin 12.9 g/dl (12.0-16.0); Mean Corpuscular Hemoglobin 30.1 pg (25.0-34.0); Mean Corpuscular Hgb Conc 32.3 g/dL (32.0-36.0); Mean Platelet Volume 10.8 fL (9.4-12.4); Platelet Count 239 K/uL (130-400); RDW Coefficient of Variation 14.4 % (11.5-14.5); Red Blood Count 4.29 M/uL (4.20-5.40); White Blood Count 13.38 K/ul (4.8-10.8)
[2023-11-18 11:27] LABS: Albumin Level 3.3 gm/dl (3.4-5.0); BUN Creatinine Ratio 24.2 (10-20); Bilirubin Direct 0.5 mg/dl (0-0.2); Bilirubin,Total 1.2 mg/dl (0.2-1.0); Calcium 9.4 mg/dl (8.6-10.3); Creatinine Clr Calc Pharmacy 57.3 ml/min; Est GFR (African American) 42.3 ml/min; Est GFR (Non-African American) 36.5 ml/min; Magnesium 1.8 mg/dl (1.7-2.4); Potassium 4.1 mmol/L (3.5-5.1)
[2023-11-18 11:33] LABS: Troponin I High Sensitivity 8.2 pg/ml (0-14)
[2023-11-18] MEDS: ACETAMINOPHEN 325 MG TAB PO PRN (12:11)
--- NOTE | 2023-11-18 12:20 | Nephrology Progress Note ---
Date of Service November 18, 2023 Assessment & Plan (1) Acute kidney injury: Plan: Non-oliguric. Baseline creatinine ~1.0 mg/dL. Clinical presentation consistent with septic/ischemic ATN. Creatinine improving. Electrolytes normal. Medications are appropriately dosed for kidney function. Maintain even to slightly negative fluid balance. Renal diet (low potassium). (2) UTI (urinary tract infection): Plan: Abx therapy per hospitalist service. Remains on ceftriaxone. Cx +pratt sensitive E coli. (3) Right ureteral calculus: Plan: POD#8 s/p R ureteral stent. (4) Lymphedema: Plan: Feet elevation and compression. Even to slightly negative fluid balance encouraged. Minimal response to furosemide 20 mg yesterday. Additional 40 mg PO furosemide provided today. Admission and Anticipated Discharge Date Admission Date: November 10, 2023 Subjective No acute events overnight. Diffuse rash and generalized itch improving. Minimal change in edema. Voiding without difficulty. Review of Systems Review of Systems: All systems reviewed & are unremarkable except as noted in HPI & below Physical Exam Constitutional: well developed and + morbidly obese; no acute distress Eyes: no scleral abnormality and no corneal abnormality ENMT: Mouth: no oral mucosal abnormality and oral mucous membranes not dry Neck: normal visual inspection, trachea midline and + thick neck Respiratory: normal respiratory effort Auscultation: lungs clear to auscultation bilaterally (anteriorly) Cardiovascular: Rate/Rhythm: regular rate Heart Sounds: normal S1 and normal S2 Extremities: + edema Musculoskeletal: Extremities: no cyanosis and no clubbing Skin: normal turgor; no lesions Neurologic: Motor/Sensory: no tremor and no asterixis Psychiatric: Orientation: alert and oriented x 3 Results & Data Vital Signs (Past 12 Hours) Vital Signs Temp Pulse Resp BP Pulse Ox O2 Del Method 11/18/23 07:55 36.3 C L 77 18 116/72 98 Room Air 11/18/23 07:13 Room Air Laboratory Results Laboratory Results - last 24 hr 11/18/23 10:53 WBC 13.38 H RBC 4.29 Hgb 12.9 Hct 39.9 MCV 93.0 MCH 30.1 MCHC 32.3 RDW Std Deviation 48.0 H RDW Coeff of Sujey 14.4 Plt Count 239 MPV 10.8 Sodium 139 Potassium 4.1 Chloride 106 Carbon Dioxide 27 Anion Gap 6 BUN 36 H Creatinine 1.49 H Est Cr Clr Drug Dosing 57.3 Est GFR ( Amer) 42.3 Est GFR (Non-Af Amer) 36.5 BUN/Creatinine Ratio 24.2 H Glucose 93 Calcium 9.4 Magnesium 1.8 Total Bilirubin 1.2 H Direct Bilirubin 0.5 H AST 33 ALT 29 Alkaline Phosphatase 112 H Troponin I High Sens 8.2 Total Protein 6.0 Albumin 3.3 L PG Care Time/CCT Total # of Minutes Spent Total Time Spent with Patient: Total time spent is greater than 50% in coordination of care (as documented) at patient's floor/unit and/or counseling patient: Coding Level of Care Code 41635 SUB INP/OBS CARE 3/50MIN Diagnoses Acute kidney injury N17.9 UTI (urinary tract infection) N39.0 Right ureteral calculus N20.1 Lymphedema I89.0
[2023-11-18 12:28] LABS: Basophils # (auto) 0.05 K/uL (0.00-0.20); Basophils % (auto) 0.4 %; Eosinophils # (auto) 0.68 K/uL (0.00-0.50); Eosinophils % (auto) 5.1 %; Immature Granulocytes # (auto) 0.71 K/uL (0.01-0.20); Immature Granulocytes % (auto) 5.3 %; Lymphocytes # (auto) 0.61 K/uL (1.20-3.40); Lymphocytes % (auto) 4.6 %; Monocytes # (auto) 0.61 K/uL (0.11-0.59); Monocytes % (auto) 4.6 %; Neutrophils # (auto) 10.72 K/uL (1.40-6.50); Polychromasia 1+
[2023-11-18] MEDS: FUROSEMIDE 40 MG TAB PO ONE (12:51)
--- NOTE | 2023-11-18 17:16 | Hospitalist Progress Note ---
Date of Service November 18, 2023 Assessment & Plan (1) Sepsis: Plan: P/w right ureterolithiasis and hydronephrosis, UTI, sepsis Went urgently for right ureteral stent placement on 11/09, Coburn left in place but now removed on 11/16 Transient postprocedural septic shock responsive to IV fluids and 2 doses of phenylephrine now resolved. Urine cultures growing pansensitive E. coli, blood cultures are negative Leukocytosis resolved, platelets mildly low likely from sepsis but now normalized, remains afebrile Has completed a 7-day course of ceftriaxone-developed a drug eruption rash diffusely on day 7 of treatment and ceftriaxone was stopped Repeat renal US shows resolution of hydronephrosis With KENYON as a result of hypotension/ATN now much improved With elevated LFTs on admission which are also now improved. And with myocardial demand ischemia with troponin of 344 now back to normal WBC count back up today to 13k possibly from alergic reaction/rash? No fevers or new infectious symptoms Follow CBC, BMP F/u as outpt with Urol for stone and stent management (2) UTI (urinary tract infection): Plan: Present on admission. E. coli Pansensitive as above (3) Acute kidney injury: Plan: Secondary to ATN associated with her episode of postprocedural septic shock. FeNa 2.6% Initially received IV fluids which have since been stopped Renal US with resolved hydronephrosis after ureteral stent placed Creatinine peaked at 3.6 and now down to creatinine 1.49, remains with good urine output but with worsening lower extremity edema-discussed with nephrology- okay to give Lasix 20 Mg IV x 1 With associated hyperkalemia now resolved with Patiromer Nephrology consultation and recommendations appreciated Follow BMP Avoid nephrotoxins, renally dose meds Aim for even fluid balance. Try compression for edema in legs and giving Lasix- 40 mg p.o. x 1 given midday on 11/17-will give another Lasix 40 Mg IV x 1 this evening Continues to improve (4) Drug eruption: Plan: With diffuse drug eruption rash that is pruritic all over her body, likely secondary to ceftriaxone WBC count elevated possibly due to reaction? Her eosinophils are somewhat elevated but so her all of her WBC differentials Discontinued ceftriaxone and started Zyrtec 10 mg p.o. twice daily, no need for steroids at this point-pruritus is improving, rash starting to improve Added ceftriaxone to allergy list (5) Oral herpes simplex infection: Plan: Continue on topical acyclovir, avoid po valtrex at this time due to risk of ATN (6) Right ureteral calculus: Plan: With ureteral stent in place. Needs ongoing Urology follow up for definitive stone treatment and stent removal after sepsis treated (7) Atrial fibrillation with RVR: Plan: Present on admission. Now rate controlled. Her diltiazem has been on hold since admission due to previous hypotension-rates controlled on metoprolol alone Have since discontinued tele monitoring Continue Pradaxa 150mg bid No need to resume diltiazem on discharge (8) Demand ischemia: Plan: Troponin elevation without chest pain or significant EKG changes. Trop up to 344 and was not repeated until 11/17 at which time it was normal No evidence of acute coronary syndrome (9) Morbid obesity: Plan: BMI 64.1 significant weight loss recommended Recommend Ozempic or Mounjaro as an outpatient Plan Right ovarian cyst-followed by [facility] in the past--> stable in size from previous DVT proph-Pradaxa Dispo-medically stable for discharge to rehab, insurance auth denied for [facility]. Did peer to peer call for [facility] and awaiting callback for over 36 hours now-doubtful insurance company will call me back Referrals made to [facility] facilities and awaiting bed availability Admission and Anticipated Discharge Date Admission Date: November 10, 2023 Subjective Patient reports rash is ongoing but is improved on the arms and she is no longer having itching. Otherwise still complains of significant edema of the legs that is painful and not much changed since receiving Lasix both yesterday and earlier today by nephrology She does think she is urinating more than previous No shortness of breath Physical Exam Constitutional: WD/WN, vitals as above + morbidly obese Respiratory: normal respiratory effort, lungs clear to auscultation Cardiovascular: Rate/Rhythm: regular rate and + irregularly irregular Heart Sounds: no murmur Extremities: + edema ( lymphedema plus 3+ pitting edema feet and legs worse than baseline ) Gastrointestinal (Abdomen): normal bowel sounds, soft, nontender, no hepatosplenomegaly Skin: + rash (Diffuse macular erythematous vee h on back, arms and thighs) and + lesion (lips with multiple vesicular,crusted/scabbed lesions) Neurologic: Rash is improved/lessened on the arms Psychiatric: A+Ox3, euthymic affect Results & Data Results & Data Vital Signs (Past 12 Hours) Vital Signs Temp Pulse Resp BP Pulse Ox O2 Del Method 11/18/23 15:19 36.4 C L 76 18 130/68 98 Room Air 11/18/23 07:55 36.3 C L 77 18 116/72 98 Room Air 11/18/23 07:13 Room Air Laboratory Results CBC, CMP, troponin reviewed PG Care Time/CCT Total # of Minutes Spent Total Time Spent with Patient: Total time spent is greater than 50% in coordination of care (as documented) at patient's floor/unit and/or counseling patient: Coding Level of Care Code 19523 SUB INP/OBS CARE 2/35MIN Diagnoses Sepsis A41.9 UTI (urinary tract infection) N39.0 Acute kidney injury N17.9 Drug eruption L27.0 Oral herpes simplex infection B00.2 Right ureteral calculus N20.1 Atrial fibrillation with RVR I48.91 Demand ischemia I24.89 Morbid obesity E66.01
[2023-11-18] MEDS: FUROSEMIDE 40 MG/4 ML VIAL IV ONE (17:33)
[2023-11-19 07:49] LABS: Basophils # (auto) 0.05 K/uL (0.00-0.20); Basophils % (auto) 0.5 %; Eosinophils # (auto) 0.58 K/uL (0.00-0.50); Eosinophils % (auto) 5.2 %; Hematocrit (blood only) 36.4 % (37.0-47.0); Hemoglobin 11.8 g/dl (12.0-16.0); Immature Granulocytes # (auto) 0.43 K/uL (0.01-0.20); Immature Granulocytes % (auto) 3.9 %; Lymphocytes # (auto) 0.79 K/uL (1.20-3.40); Lymphocytes % (auto) 7.1 %; Mean Corpuscular Hemoglobin 29.9 pg (25.0-34.0); Mean Corpuscular Hgb Conc 32.4 g/dL (32.0-36.0); Mean Corpuscular Volume 92.4 fL (80.0-100.0); Mean Platelet Volume 10.6 fL (9.4-12.4); Monocytes # (auto) 0.55 K/uL (0.11-0.59); Neutrophils # (auto) 8.65 K/uL (1.40-6.50); Neutrophils % (auto) 78.3 %; Platelet Count 242 K/uL (130-400); RDW Coefficient of Variation 14.4 % (11.5-14.5); RDW Standard Deviation 48.1 fL (36.4-46.3); Red Blood Count 3.94 M/uL (4.20-5.40); White Blood Count 11.05 K/ul (4.8-10.8)
[2023-11-19 08:08] LABS: BUN Creatinine Ratio 21.8 (10-20); Calcium 8.7 mg/dl (8.6-10.3); Creatinine Clr Calc Pharmacy 55.1 ml/min; Est GFR (Non-African American) 34.5 ml/min; Magnesium 1.6 mg/dl (1.7-2.4)
--- NOTE | 2023-11-19 13:03 | Nephrology Progress Note ---
Date of Service November 19, 2023 Assessment & Plan (1) Acute kidney injury: Plan: Non-oliguric. Baseline creatinine ~1.0 mg/dL. Clinical presentation consistent with septic/ischemic ATN. Creatinine improved/stable. Electrolytes normal. Medications are appropriately dosed for kidney function. Maintain even to slightly negative fluid balance. Renal diet (low potassium). No additional recommendations at this time. Nephrology will sign-off. Please call with questions or concerns. (2) UTI (urinary tract infection): Plan: Abx therapy per hospitalist service. Remains on ceftriaxone. Cx +pratt sensitive E coli. (3) Right ureteral calculus: Plan: POD#9 s/p R ureteral stent. (4) Lymphedema: Plan: Feet elevation and compression. Even to slightly negative fluid balance encouraged. Admission and Anticipated Discharge Date Admission Date: November 10, 2023 Subjective No acute events overnight. Notably increased UOP with diuretic yesterday. Subtle improvement in LE edema. Otherwise, Sara feels well. Review of Systems Review of Systems: All systems reviewed & are unremarkable except as noted in HPI & below Physical Exam Constitutional: well developed and + morbidly obese; no acute distress Eyes: no scleral abnormality and no corneal abnormality ENMT: Mouth: no oral mucosal abnormality and oral mucous membranes not dry Neck: normal visual inspection, trachea midline and + thick neck Respiratory: normal respiratory effort Auscultation: lungs clear to auscultation bilaterally (anteriorly), + rales and + wheezes Cardiovascular: Rate/Rhythm: regular rate Heart Sounds: normal S1 and normal S2 Extremities: + pedal edema and + edema Musculoskeletal: Extremities: no cyanosis and no clubbing Skin: normal turgor; no lesions Neurologic: Motor/Sensory: no tremor and no asterixis Psychiatric: Orientation: alert and oriented x 3 Results & Data Vital Signs (Past 12 Hours) Vital Signs Temp Pulse Resp BP Pulse Ox O2 Del Method 11/19/23 08:15 73 125/73 11/19/23 07:54 36.6 C 69 16 133/76 97 Room Air Laboratory Results Laboratory Results - last 24 hr 11/19/23 07:06 WBC 11.05 H RBC 3.94 L Hgb 11.8 L Hct 36.4 L MCV 92.4 MCH 29.9 MCHC 32.4 RDW Std Deviation 48.1 H RDW Coeff of Sujey 14.4 Plt Count 242 MPV 10.6 Immature Gran % (Auto) 3.9 Neut % (Auto) 78.3 Lymph % (Auto) 7.1 Wolfe % (Auto) 5.0 Eos % (Auto) 5.2 Baso % (Auto) 0.5 Neut # (Auto) 8.65 H Lymph # (Auto) 0.79 L Wolfe # (Auto) 0.55 Eos # (Auto) 0.58 H Baso # (Auto) 0.05 Immature Gran # (Auto) 0.43 H Sodium 142 Potassium 4.0 Chloride 107 Carbon Dioxide 29 Anion Gap 6 BUN 34 H Creatinine 1.56 H Est Cr Clr Drug Dosing 55.1 Est GFR ( Amer) 40.0 Est GFR (Non-Af Amer) 34.5 BUN/Creatinine Ratio 21.8 H Glucose 80 Calcium 8.7 Magnesium 1.6 L PG Care Time/CCT Total # of Minutes Spent Total Time Spent with Patient: Total time spent is greater than 50% in coordination of care (as documented) at patient's floor/unit and/or counseling patient: Coding Level of Care Code 75966 SUB INP/OBS CARE 3/50MIN Diagnoses Acute kidney injury N17.9 UTI (urinary tract infection) N39.0 Right ureteral calculus N20.1 Lymphedema I89.0
--- NOTE | 2023-11-19 13:37 | Hospitalist Progress Note ---
Date of Service November 19, 2023 Assessment & Plan (1) Sepsis: Plan: Initially presented with right ureterolithiasis and hydronephrosis, UTI, sepsis Went urgently for right ureteral stent placement on 11/09, Coburn left in place post procedure but then removed on 11/16 Transient postprocedural septic shock responsive to IV fluids and 2 doses of phenylephrine now resolved. Urine cultures growing pansensitive E. coli, blood cultures are negative Leukocytosis resolved, platelets mildly low likely from sepsis but now normalized, remains afebrile Has completed a 7-day course of ceftriaxone-developed a drug eruption rash diffusely on day 7 of treatment and ceftriaxone was stopped (see below assessment) Repeat renal US shows resolution of hydronephrosis With KENYON as a result of hypotension/ATN now much improved With elevated LFTs on admission which are also now improved. And with myocardial demand ischemia with troponin of 344 now back to normal WBC count went back up today to 13k now down-trending again- will monitor closely as no fevers or new infectious symptoms. If does not return to baseline will repeat cultures Follow CBC, BMP Patient will require outpatient follow up with urology regarding definitive stone management as well as stent management. Patient is aware. F/u as outpt with Urol for stone and stent management (2) UTI (urinary tract infection): Plan: Present on admission. E. coli Pansensitive as above Now monitoring off of abx. Received a total of 7 days of IV Rocephin Monitor WBC- noted slight increase on 11/17- now down-trending again Monitor closely, if persistent leukocytosis or symptoms will reculture and consider ID evaluation. (3) Acute kidney injury: Plan: -Secondary to ATN associated with her episode of postprocedural septic shock. FeNa 2.6% -Initially received IV fluids which have since been stopped -Renal US with resolved hydronephrosis after ureteral stent placed -Creatinine peaked at 3.6 and now down to creatinine 1.5 -Remains with good urine output but with worsening lower extremity edema- on 11/18/23 received 2 doses of Lasix. Had significant volume output per patient. I ncontinent so difficult to monitor strict I's and O's. Will monitor volume status closely. -Nephrology following recommendations appreciated -Previously noted associated hyperkalemia now resolved with Patiromer -Follow BMP -Avoid nephrotoxins, renally dose meds -Aim for even fluid balance. Will consider dosing of lasix based on clinical exam- had significant output overnight- will consider redosing in the evening/AM (4) Drug eruption: Plan: On day 7 of Ceftriaxone: diffuse drug eruption rash that is pruritic all over her body, likely secondary to ceftriaxone WBC count elevated possibly due to reaction? Her eosinophils are somewhat elevated but so her all of her WBC differentials Discontinued ceftriaxone and started Zyrtec 10 mg p.o. twice daily, no need for steroids at this point-pruritus is improving, rash starting to improve Added ceftriaxone to allergy list Some persistence of rash in LLE- if continues to persist may consider topical hydrocortisone vs a small course of po prednisone- will monitor clinically (5) Oral herpes simplex infection: Plan: Continue on topical acyclovir, avoid po valtrex at this time due to risk of ATN (6) Right ureteral calculus: Plan: -S/p ureteral stent placement. -Patient is aware she needs ongoing Urology follow up for definitive stone treatment and stent removal (7) Atrial fibrillation with RVR: Plan: Present on admission. Now rate controlled. Her diltiazem has been on hold since admission due to previous hypotension-rates controlled on metoprolol alone Have since discontinued tele monitoring AC: Continue Pradaxa 150mg bid No need to resume diltiazem on discharge (8) Demand ischemia: Plan: Troponin elevation without chest pain or significant EKG changes. Trop up to 344 and was not repeated until 11/17 at which time it was normal No evidence of acute coronary syndrome (9) Morbid obesity: Plan: BMI 64.1 significant weight loss recommended Counseled on diet and lifestyle modifications Consider pharmacotherapy Ozempic or Mounjaro as an outpatient (10) Hip pain: Plan: 1 day in duration Reports after turning Patient reports it feels like musculoskeletal Discussed with OT this AM- was able to participate fully in activity, not limiting ROM. Had some pain at the end of session Tylenol helping to reduce pain significantly Will monitor, if persistent/worsening or change in nature of pain will obtain imaging Plan Right ovarian cyst-followed by [facility] in the past--> stable in size from previous. Needs outpatient [facility] follow up. DVT proph-Pradaxa Dispo-insurance auth denied for [facility]. Colleague did peer to peer call for [facility] and awaiting callback for over 48 hours now-doubtful insurance company will call back Referrals made to [facility] facilities and awaiting bed availability THALIA TAMERA this AM Admission and Anticipated Discharge Date Admission Date: November 10, 2023 Subjective Patient seen and evaluated bedside Patient is currently in no acute distress Reports some mild left hip pain that happened after turning yesterday. Describes it as a muscular pain responsive to Tylenol but will monitor closely for changes in symptoms Reports rash continues to improve- still some residual on her lower extremity Reports significant urine output yesterday after receiving diuretic dose Review of Systems Review of Systems: ROS negative unless otherwise indicated in HPI Physical Exam Constitutional: well developed and + morbidly obese; no acute distress Eyes: no scleral abnormality and no corneal abnormality ENMT: Mouth: no oral mucosal abnormality and oral mucous membranes not dry Neck: normal visual inspection, trachea midline and + thick neck Respiratory: normal respiratory effort Auscultation: lungs clear to auscultation bilaterally (anteriorly), + rales and + wheezes Cardiovascular: Rate/Rhythm: regular rate Heart Sounds: normal S1 and normal S2 Extremities: + pedal edema and + edema Musculoskeletal: Extremities: no cyanosis and no clubbing Skin: Erythematous rash receding. Still semi-persistent on the LLE Neurologic: Motor/Sensory: no tremor and no asterixis Psychiatric: Orientation: alert and oriented x 3 Results & Data Results & Data Vital Signs (Past 12 Hours) Vital Signs Temp Pulse Resp BP Pulse Ox O2 Del Method 11/19/23 08:15 73 125/73 11/19/23 07:54 36.6 C 69 16 133/76 97 Room Air PG Care Time/CCT Total # of Minutes Spent Total Time Spent with Patient: Total time spent is greater than 50% in coordination of care (as documented) at patient's floor/unit and/or counseling patient: Coding Level of Care Code 33851 SUB INP/OBS CARE 2/35MIN Diagnoses Sepsis A41.9 UTI (urinary tract infection) N39.0 Acute kidney injury N17.9 Drug eruption L27.0 Oral herpes simplex infection B00.2 Right ureteral calculus N20.1 Atrial fibrillation with RVR I48.91 Demand ischemia I24.89 Morbid obesity E66.01 Hip pain M25.559
[2023-11-20 06:42] LABS: Basophils # (auto) 0.03 K/uL (0.00-0.20); Basophils % (auto) 0.3 %; Eosinophils # (auto) 0.43 K/uL (0.00-0.50); Eosinophils % (auto) 4.9 %; Hematocrit (blood only) 34.5 % (37.0-47.0); Hemoglobin 11.2 g/dl (12.0-16.0); Immature Granulocytes # (auto) 0.21 K/uL (0.01-0.20); Immature Granulocytes % (auto) 2.4 %; Lymphocytes # (auto) 0.75 K/uL (1.20-3.40); Lymphocytes % (auto) 8.5 %; Mean Corpuscular Hgb Conc 32.5 g/dL (32.0-36.0); Mean Corpuscular Volume 92.5 fL (80.0-100.0); Mean Platelet Volume 10.6 fL (9.4-12.4); Monocytes # (auto) 0.41 K/uL (0.11-0.59); Monocytes % (auto) 4.6 %; Neutrophils # (auto) 6.99 K/uL (1.40-6.50); Neutrophils % (auto) 79.3 %; Platelet Count 253 K/uL (130-400); RDW Coefficient of Variation 14.4 % (11.5-14.5); RDW Standard Deviation 48.4 fL (36.4-46.3); Red Blood Count 3.73 M/uL (4.20-5.40); White Blood Count 8.82 K/ul (4.8-10.8)
[2023-11-20 07:01] LABS: Calcium 8.2 mg/dl (8.6-10.3); Creatinine Clr Calc Pharmacy 67.7 ml/min; Est GFR (African American) 51.3 ml/min; Est GFR (Non-African American) 44.3 ml/min; Potassium 3.9 mmol/L (3.5-5.1)
--- NOTE | 2023-11-20 13:26 | Hospitalist Progress Note ---
Date of Service November 20, 2023 Assessment & Plan (1) Sepsis: Plan: -Initially presented with right ureterolithiasis and hydronephrosis, UTI, sepsis -Went urgently for right ureteral stent placement on 11/09, Coburn left in place post procedure but then removed on 11/16 -Transient postprocedural septic shock responsive to IV fluids and 2 doses of phenylephrine now resolved. -Urine cultures growing pansensitive E. coli, blood cultures are negative -Leukocytosis resolved, platelets mildly low likely from sepsis but now normalized, remains afebrile -Has completed a 7-day course of ceftriaxone-developed a drug eruption rash diffusely on day 7 of treatment and ceftriaxone was stopped (see below assessment) -Repeat renal US shows resolution of hydronephrosis -With KENYON as a result of hypotension/ATN now much improved -With elevated LFTs on admission which are also now improved. And with myocardial demand ischemia with troponin of 344 now back to normal -WBC count went back up gain but now down-trending, no longer with leukocytosis. Will monitor closely as no fevers or new infectious symptoms. If does not return to baseline will repeat cultures Follow CBC, BMP Patient will require outpatient follow up with urology regarding definitive stone management as well as stent management. Patient is aware. F/u as outpt with Urology for stone and stent management (2) UTI (urinary tract infection): Plan: Present on admission. E. coli Pansensitive as above Now monitoring off of abx. Received a total of 7 days of IV Rocephin Monitor WBC- noted slight increase on 11/17- now down-trending again. Leukocytosis now resolved. Monitor closely, if persistent leukocytosis or symptoms will reculture and consider ID evaluation. (3) Acute kidney injury: Plan: -Secondary to ATN associated with her episode of postprocedural septic shock. FeNa 2.6% -Initially received IV fluids which have since been stopped -Renal US with resolved hydronephrosis after ureteral stent placed -Creatinine peaked at 3.6 and now downtrending -Remains with good urine output but with worsening lower extremity edema- on 11/18/23 received 2 doses of Lasix. Had significant volume output per patient. Incontinent so difficult to monitor strict I's and O's. Will monitor volume status closely. -Nephrology following recommendations appreciated -Previously noted associated hyperkalemia now resolved with Patiromer -Follow BMP -Avoid nephrotoxins, renally dose meds -Aim for even fluid balance. Will consider dosing of lasix based on clinical exam- will hold dose of lasix this afternoon but will consider re-dosing for the AM. (4) Drug eruption: Plan: -On day 7 of Ceftriaxone therapy patient developed diffuse drug eruption rash that is pruritic all over her body, likely secondary to ceftriaxone -WBC count was elevated possibly due to reaction? Her eosinophils are somewhat elevated but so her all of her WBC differentials -Discontinued ceftriaxone and started Zyrtec 10 mg p.o. twice daily, no need for steroids at this point-pruritus is improving, rash starting to improve -Added ceftriaxone to allergy list -Some persistence of rash in LLE- if continues to persist may consider topical hydrocortisone vs a small course of po prednisone- patient would like to hold off for now- will monitor clinically and start as indicated. (5) Oral herpes simplex infection: Plan: Continue on topical acyclovir, avoid po valtrex at this time due to risk of ATN (6) Right ureteral calculus: Plan: -S/p ureteral stent placement. -Patient is aware she needs ongoing Urology follow up for definitive stone treatment and stent removal (7) Atrial fibrillation with RVR: Plan: Present on admission. Now rate controlled. Her diltiazem has been on hold since admission due to previous hypotension-rates controlled on metoprolol alone Have since discontinued tele monitoring AC: Continue Pradaxa 150mg bid No need to resume diltiazem on discharge (8) Demand ischemia: Plan: Troponin elevation without chest pain or significant EKG changes. Trop up to 344 and was not repeated until 11/17 at which time it was normal No evidence of acute coronary syndrome (9) Morbid obesity: Plan: BMI 64.1 significant weight loss recommended Counseled on diet and lifestyle modifications Consider pharmacotherapy Ozempic or Mounjaro as an outpatient (10) Hip pain: Plan: Reports started after turning Patient reports it feels like musculoskeletal Discussed with OT- was able to participate fully in activity, not limiting ROM. Had some pain at the end of session Tylenol helping to reduce pain significantly Pain now improving slowly- wants to trial muscle relaxer flexeril- will start with low dose x1 and see if any improvement. Will continue to adjust therapy If not improvement or continued persistence will obtain imaging Plan Right ovarian cyst-followed by SILK TRIMMER in the past--> stable in size from previous. Needs outpatient [facility] TR[employer] follow up. DVT proph-Pradaxa Dispo-insurance auth denied for [facility]. Colleague did peer to peer call this was denied. Referrals made to [facility] facilities and awaiting bed availability Discussed with SW Admission and Anticipated Discharge Date Admission Date: November 10, 2023 Subjective Patient seen and evaluated bedside Patient is currently in NAD Reports hip pain improving with supportive measures Rash continues to improve- still continues to have some residual on lower extremities Review of Systems Review of Systems: ROS negative unless otherwise indicated in HPI Physical Exam Constitutional: well developed and + morbidly obese; no acute distress Eyes: no scleral abnormality and no corneal abnormality ENMT: Mouth: no oral mucosal abnormality and oral mucous membranes not dry Neck: normal visual inspection, trachea midline and + thick neck Respiratory: normal respiratory effort Auscultation: lungs clear to auscultation bilaterally (anteriorly), + rales and + wheezes Cardiovascular: Rate/Rhythm: regular rate Heart Sounds: normal S1 and normal S2 Extremities: + pedal edema and + edema Musculoskeletal: Extremities: no cyanosis and no clubbing Skin: Erythematous rash noted- slowly receding. Most noticeable in the LLE Neurologic: Motor/Sensory: no tremor and no asterixis Psychiatric: Orientation: alert and oriented x 3 Results & Data Results & Data Vital Signs (Past 12 Hours) Vital Signs Temp Pulse Resp BP Pulse Ox O2 Del Method 11/20/23 07:35 36.5 C 72 16 117/66 97 Room Air PG Care Time/CCT Total # of Minutes Spent Total Time Spent with Patient: Total time spent is greater than 50% in coordination of care (as documented) at patient's floor/unit and/or counseling patient: Coding Level of Care Code 52883 SUB INP/OBS CARE 2/35MIN Diagnoses Sepsis A41.9 UTI (urinary tract infection) N39.0 Acute kidney injury N17.9 Drug eruption L27.0 Oral herpes simplex infection B00.2 Right ureteral calculus N20.1 Atrial fibrillation with RVR I48.91 Demand ischemia I24.89 Morbid obesity E66.01 Hip pain M25.559
[2023-11-20] MEDS: CYCLOBENZAPRINE HCL 5 MG TAB PO ONE (13:56)
[2023-11-21 07:30] LABS: Basophils # (auto) 0.03 K/uL (0.00-0.20); Basophils % (auto) 0.4 %; Eosinophils # (auto) 0.45 K/uL (0.00-0.50); Eosinophils % (auto) 5.8 %; Hematocrit (blood only) 37.8 % (37.0-47.0); Hemoglobin 11.7 g/dl (12.0-16.0); Immature Granulocytes # (auto) 0.11 K/uL (0.01-0.20); Immature Granulocytes % (auto) 1.4 %; Lymphocytes # (auto) 0.81 K/uL (1.20-3.40); Lymphocytes % (auto) 10.5 %; Mean Corpuscular Hemoglobin 29.5 pg (25.0-34.0); Mean Corpuscular Volume 95.5 fL (80.0-100.0); Mean Platelet Volume 10.1 fL (9.4-12.4); Monocytes # (auto) 0.41 K/uL (0.11-0.59); Monocytes % (auto) 5.3 %; Neutrophils # (auto) 5.92 K/uL (1.40-6.50); Neutrophils % (auto) 76.6 %; Platelet Count 248 K/uL (130-400); RDW Coefficient of Variation 14.4 % (11.5-14.5); RDW Standard Deviation 50.4 fL (36.4-46.3); Red Blood Count 3.96 M/uL (4.20-5.40); White Blood Count 7.73 K/ul (4.8-10.8)
[2023-11-21 07:49] LABS: BUN Creatinine Ratio 24.3 (10-20); Calcium 8.4 mg/dl (8.6-10.3); Creatinine Clr Calc Pharmacy 80.4 ml/min; Est GFR (African American) 63.1 ml/min; Est GFR (Non-African American) 54.4 ml/min; Potassium 3.8 mmol/L (3.5-5.1)
[2023-11-21] MEDS: CYCLOBENZAPRINE HCL 5 MG TAB PO PRN (10:07)
[2023-11-21] MEDS: FUROSEMIDE 20 MG TAB PO ONE (10:07)
--- NOTE | 2023-11-21 11:20 | Hospitalist Progress Note ---
Date of Service November 21, 2023 Assessment & Plan (1) Sepsis: Plan: -Initially presented with right ureterolithiasis and hydronephrosis, UTI, sepsis -Went urgently for right ureteral stent placement on 11/09, Coburn left in place post procedure but then removed on 11/16 -Transient postprocedural septic shock responsive to IV fluids and 2 doses of phenylephrine now resolved. -Urine cultures growing pansensitive E. coli, blood cultures are negative -Leukocytosis resolved, platelets mildly low likely from sepsis but now normalized, remains afebrile -Has completed a 7-day course of ceftriaxone-developed a drug eruption rash diffusely on day 7 of treatment and ceftriaxone was stopped (see below assessment) -Repeat renal US shows resolution of hydronephrosis -With KENYON as a result of hypotension/ATN now much improved -With elevated LFTs on admission which are also now improved. And with myocardial demand ischemia with troponin of 344 now back to normal -WBC count went back up gain but now down-trending, no longer with leukocytosis. Will monitor closely as no fevers or new infectious symptoms. If does not return to baseline will repeat cultures Follow CBC, BMP Patient will require outpatient follow up with urology regarding definitive stone management as well as stent management. Patient is aware. F/u as outpt with Urology for stone and stent management Will give dose of diuretic today to help further facilitate off fluid. Approaching euvolemic status. Patient wants to hold from any IV lasix dosing however. Agreeable to low dose po. (2) UTI (urinary tract infection): Plan: -Present on admission. E. coli Pansensitive as above -Now monitoring off of abx. Received a total of 7 days of IV Rocephin -Monitor WBC- noted slight increase on 11/17- now down-trending again. Leukoc ytosis now resolved. -Monitor closely, if persistent leukocytosis or symptoms will reculture and consider ID evaluation. (3) Acute kidney injury: Plan: -Secondary to ATN associated with her episode of postprocedural septic shock. FeNa 2.6% -Initially received IV fluids which have since been stopped -Renal US with resolved hydronephrosis after ureteral stent placed -Creatinine peaked at 3.6 and now downtrending -Remains with good urine output but with worsening lower extremity edema- on 11/18/23 received 2 doses of Lasix. Had significant volume output per patient. Incontinent so difficult to monitor strict I's and O's. Will monitor volume status closely. -Nephrology following recommendations appreciated -Previously noted associated hyperkalemia now resolved with Patiromer -Follow BMP -Avoid nephrotoxins, renally dose meds -Aim for even fluid balance. Will give dose of po lasix this AM- patient declined IV lasix but agreeable to po dose today. Approaching euvolemic status but will noted with some fluid in addition to chronic lymphedema. -Cr improve to 1.07 this AM (4) Drug eruption: Plan: -On day 7 of Ceftriaxone therapy patient developed diffuse drug eruption rash that is pruritic all over her body, likely secondary to ceftriaxone -WBC count was elevated possibly due to reaction? Her eosinophils are somewhat elevated but so her all of her WBC differentials -Discontinued ceftriaxone and started Zyrtec 10 mg p.o. twice daily, no need for steroids at this point-pruritus is improving, rash starting to improve -Added ceftriaxone to allergy list -Some persistence of rash in LLE- if continues to persist may consider topical hydrocortisone vs a small course of po prednisone- patient would like to continue to hold off for now- will monitor clinically and start as indicated. (5) Oral herpes simplex infection: Plan: -Continue on topical acyclovir, avoid po valtrex at this time due to risk of ATN (6) Right ureteral calculus: Plan: -S/p ureteral stent placement. -Patient is aware she needs ongoing Urology follow up for definitive stone treatment and stent removal (7) Atrial fibrillation with RVR: Plan: -Present on admission. Now rate controlled. -Her diltiazem has been on hold since admission due to previous hypotension- rates controlled on metoprolol alone -Have since discontinued tele monitoring -AC: Continue Pradaxa 150mg bid -No need to resume diltiazem on discharge (8) Demand ischemia: Plan: -Troponin elevation without chest pain or significant EKG changes. Trop up to 344 and was not repeated until 11/17 at which time it was normal -No evidence of acute coronary syndrome (9) Morbid obesity: Plan: -BMI 64.1 significant weight loss recommended -Counseled on diet and lifestyle modifications -Consider pharmacotherapy Ozempic or Mounjaro as an outpatient (10) Hip pain: Plan: -Reports started after turning -Patient reports it feels like musculoskeletal -Discussed with OT- was able to participate fully in activity, not limiting ROM. Had some pain at the end of session -Tylenol helping to reduce pain significantly -Pain now improving slowly- feels as if improving with dose of Flexeril- will order prn for now. -If noted worsening of persistence will order further imaging Plan Right ovarian cyst-followed by BUS DRIVER in the past--> stable in size from previous. Needs outpatient BUS DRIVER follow up. DVT proph-Pradaxa Dispo-insurance auth denied for [facility]. Colleague did peer to peer call this was denied. Referrals made to custodial facilities and awaiting bed availability Discussed with SW Admission and Anticipated Discharge Date Admission Date: November 10, 2023 Subjective Patient seen and evaluated bedside Patient is currently in NAD Feels as if rash is continuing to improve. Slowest is in the BL LE Hip pain improving as well- states Flexeril dose yesterday helped Review of Systems Review of Systems: As indicated in subjective Physical Exam Constitutional: well developed and + morbidly obese; no acute distress Eyes: no scleral abnormality and no corneal abnormality ENMT: Mouth: no oral mucosal abnormality and oral mucous membranes not dry Neck: normal visual inspection, trachea midline and + thick neck Respiratory: normal respiratory effort Auscultation: lungs clear to auscultation bilaterally (anteriorly) Cardiovascular: Rate/Rhythm: regular rate Heart Sounds: normal S1 and normal S2 Extremities: + pedal edema and + edema Musculoskeletal: Extremities: no cyanosis and no clubbing Neurologic: Motor/Sensory: no tremor and no asterixis Psychiatric: Orientation: alert and oriented x 3 Results & Data Results & Data Vital Signs (Past 12 Hours) Vital Signs Temp Pulse Resp BP Pulse Ox O2 Del Method 11/21/23 07:33 36.4 C L 64 16 104/63 98 Room Air PG Care Time/CCT Total # of Minutes Spent Total Time Spent with Patient: Total time spent is greater than 50% in coordination of care (as documented) at patient's floor/unit and/or counseling patient: Coding Level of Care Code 65956 SUB INP/OBS CARE 2/35MIN Diagnoses Sepsis A41.9 UTI (urinary tract infection) N39.0 Acute kidney injury N17.9 Drug eruption L27.0 Oral herpes simplex infection B00.2 Right ureteral calculus N20.1 Atrial fibrillation with RVR I48.91 Demand ischemia I24.89 Morbid obesity E66.01 Hip pain M25.559
[2023-11-22 08:34] LABS: Basophils # (auto) 0.03 K/uL (0.00-0.20); Basophils % (auto) 0.5 %; Eosinophils # (auto) 0.47 K/uL (0.00-0.50); Eosinophils % (auto) 7.2 %; Hematocrit (blood only) 35.8 % (37.0-47.0); Hemoglobin 11.4 g/dl (12.0-16.0); Immature Granulocytes # (auto) 0.05 K/uL (0.01-0.20); Immature Granulocytes % (auto) 0.8 %; Lymphocytes # (auto) 0.72 K/uL (1.20-3.40); Lymphocytes % (auto) 11.1 %; Mean Corpuscular Hemoglobin 29.5 pg (25.0-34.0); Mean Corpuscular Hgb Conc 31.8 g/dL (32.0-36.0); Mean Corpuscular Volume 92.7 fL (80.0-100.0); Mean Platelet Volume 10.2 fL (9.4-12.4); Monocytes % (auto) 6.2 %; Neutrophils # (auto) 4.83 K/uL (1.40-6.50); Neutrophils % (auto) 74.2 %; Platelet Count 259 K/uL (130-400); RDW Coefficient of Variation 14.2 % (11.5-14.5); Red Blood Count 3.86 M/uL (4.20-5.40)
[2023-11-22 09:35] LABS: Alanine Aminotransferase 20 U/L (7-52); Albumin Globulin Ratio 1.2 (0.9-2); Albumin Level 2.9 gm/dl (3.4-5.0); Alkaline Phosphatase 81 U/L (34-104); Anion Gap 4 (3-11); BUN Creatinine Ratio 22.7 (10-20); Blood Urea Nitrogen 25 mg/dl (6-23); Calcium 8.5 mg/dl (8.6-10.3); Carbon Dioxide 29 mmol/L (21-32); Chloride 107 mmol/L (98-107); Creatinine Clr Calc Pharmacy 78.2 ml/min; Est GFR (Non-African American) 52.6 ml/min; Globulin 2.4 gm/dl (2.5-4.0); Glucose 80 mg/dl (70-99(Fasting)); Sodium 140 mmol/L (136-145); Total Protein 5.3 gm/dl (6.0-8.3)
[2023-11-22 10:49] LABS: Potassium 4.1 mmol/L (3.5-5.1)
[2023-11-22 20:15] VITALS: TEMP 97.9; O2SAT 98
--- NOTE | 2023-11-22 22:00 | Hospitalist Progress Note ---
Date of Service November 22, 2023 Assessment & Plan (1) Sepsis: Plan: -Initially presented with right ureterolithiasis and hydronephrosis, UTI, sepsis -Went urgently for right ureteral stent placement on 11/09, Coburn left in place post procedure but then removed on 11/16 -Transient postprocedural septic shock responsive to IV fluids and 2 doses of phenylephrine now resolved. -Urine cultures growing pansensitive E. coli, blood cultures are negative -Leukocytosis resolved, platelets mildly low likely from sepsis but now normalized, remains afebrile -Has completed a 7-day course of ceftriaxone-developed a drug eruption rash diffusely on day 7 of treatment and ceftriaxone was stopped (see below assessment) -Repeat renal US shows resolution of hydronephrosis -With KENYON as a result of hypotension/ATN now much improved -With elevated LFTs on admission which are also now improved. And with myocardial demand ischemia with troponin of 344 now back to normal -WBC count went back up gain but now down-trending, no longer with leukocytosis. Will monitor closely as no fevers or new infectious symptoms. If does not return to baseline will repeat cultures Follow CBC, BMP Patient will require outpatient follow up with urology regarding definitive stone management as well as stent management. Patient is aware. F/u as outpt with Urology for stone and stent management Approaching euvolemic status. Patient wants to hold from any IV lasix dosing however. Agreeable to low dose po. (2) UTI (urinary tract infection): Plan: -Present on admission. E. coli Pansensitive as above -Now monitoring off of abx. Received a total of 7 days of IV Rocephin -Monitor WBC- noted slight increase on 11/17- now down-trending again. Leukocytosis now resolved. -Monitor closely, if persistent leukocytosis or symptoms will reculture and consider ID evaluation. (3) Acute kidney injury: Plan: -Secondary to ATN associated with her episode of postprocedural septic shock. FeNa 2.6% -Initially received IV fluids which have since been stopped -Renal US with resolved hydronephrosis after ureteral stent placed -Creatinine peaked at 3.6 and now downtrending -Remains with good urine output but with worsening lower extremity edema- on 11/18/23 received 2 doses of Lasix. Had significant volume output per patient. Incontinent so difficult to monitor strict I's and O's. Will monitor volume status closely. -Nephrology following recommendations appreciated -Previously noted associated hyperkalemia now resolved with Patiromer -Follow BMP -Avoid nephrotoxins, renally dose meds -Aim for even fluid balance. Will give dose of po lasix this AM- patient declined IV lasix but agreeable to po dose today. Approaching euvolemic status but will noted with some fluid in addition to chronic lymphedema. -Cr improve to 1.07 this AM (4) Drug eruption: Plan: -On day 7 of Ceftriaxone therapy patient developed diffuse drug eruption rash that is pruritic all over her body, likely secondary to ceftriaxone -WBC count was elevated possibly due to reaction? Her eosinophils are somewhat elevated but so her all of her WBC differentials -Discontinued ceftriaxone and started Zyrtec 10 mg p.o. twice daily, no need for steroids at this point-pruritus is improving, rash starting to improve -Added ceftriaxone to allergy list -Some persistence of rash in LLE- if continues to persist may consider topical hydrocortisone vs a small course of po prednisone- patient would like to continue to hold off for now- will monitor clinically and start as indicated. (5) Oral herpes simplex infection: Plan: -Continue on topical acyclovir, avoid po valtrex at this time due to risk of ATN (6) Right ureteral calculus: Plan: -S/p ureteral stent placement. -Patient is aware she needs ongoing Urology follow up for definitive stone treatment and stent removal (7) Atrial fibrillation with RVR: Plan: -Present on admission. Now rate controlled. -Her diltiazem has been on hold since admission due to previous hypotension- rates controlled on metoprolol alone -Have since discontinued tele monitoring -AC: Continue Pradaxa 150mg bid -No need to resume diltiazem on discharge (8) Demand ischemia: Plan: -Troponin elevation without chest pain or significant EKG changes. Trop up to 344 and was not repeated until 11/17 at which time it was normal -No evidence of acute coronary syndrome (9) Morbid obesity: Plan: -BMI 64.1 significant weight loss recommended -Counseled on diet and lifestyle modifications -Consider pharmacotherapy Ozempic or Mounjaro as an outpatient (10) Hip pain: Plan: -Reports started after turning -Patient reports it feels like musculoskeletal -Discussed with OT- was able to participate fully in activity, not limiting ROM. Had some pain at the end of session -Tylenol helping to reduce pain significantly -Pain now improving slowly- feels as if improving with dose of Flexeril- will order prn for now. -If noted worsening of persistence will order further imaging Plan Right ovarian cyst-followed by [employer]CH[employer]ING CONTRACTING CLERK in the past--> stable in size from previous. Needs outpatient [employer]CHASING CONTRACTING CLERK follow up. DVT proph-Pradaxa Dispo-insurance auth denied for [facility]. Colleague did peer to peer call this was denied. Referrals made to senior care facilities and awaiting bed availability Discussed with SW Admission and Anticipated Discharge Date Admission Date: November 10, 2023 Subjective Patient reports only having pain in her left buttock. Patient reports no new symptoms. Review of Systems Review of Systems: All systems reviewed & are unremarkable except as noted in HPI & below Physical Exam Constitutional: WD/WN, vitals as above well developed and + morbidly obese; no acute distress Eyes: no scleral abnormality, no corneal abnormality and normal pupil size ENMT: Mouth: no oral mucosal abnormality and oral mucous membranes not dry Neck: normal visual inspection, trachea midline and + thick neck Respiratory: normal respiratory effort Auscultation: lungs clear to auscultation bilaterally (anteriorly), + rales and + wheezes Cardiovascular: Rate/Rhythm: regular rate Heart Sounds: normal S1 and normal S2; no murmur Extremities: normal capillary refill, + pedal edema and + edema; no calf tenderness Gastrointestinal (Abdomen): normal bowel sounds, soft, nontender, no hepatosplenomegaly Inspection/Auscultation: abdomen normal to inspection; abdomen not distended Percussion/Palpation: + abdomen tender (right sided) and abdomen soft Musculoskeletal: unable to reach MSK. Neurologic: moves all extremities and awake; not confused Psychiatric: A+Ox3, euthymic affect Results & Data Results & Data Vital Signs (Past 12 Hours) Vital Signs Temp Pulse Resp BP Pulse Ox O2 Del Method 11/22/23 20:15 36.6 C 87 18 121/68 98 Room Air 11/22/23 14:39 36.8 C 83 18 122/68 95 Room Air PG Care Time/CCT Total # of Minutes Spent Total Time Spent with Patient: Total time spent is greater than 50% in coordination of care (as documented) at patient's floor/unit and/or counseling patient: Coding Level of Care Code 90248 SUB INP/OBS CARE MIN Diagnoses Sepsis A41.9 UTI (urinary tract infection) N39.0 Acute kidney injury N17.9 Drug eruption L27.0 Oral herpes simplex infection B00.2 Right ureteral calculus N20.1 Atrial fibrillation with RVR I48.91 Demand ischemia I24.89 Morbid obesity E66.01 Hip pain M25.559
[2023-11-23 06:58] VITALS: BP 121/66; PULSE 71; RESP 20
[2023-11-23] MEDS: LIDOCAINE 5% 1 PATCH TD SCH (08:16)
[2023-11-23 11:12] LABS: Alanine Aminotransferase 14 U/L (7-52); Albumin Globulin Ratio 1.3 (0.9-2); Alkaline Phosphatase 82 U/L (34-104); Anion Gap 6 (3-11); BUN Creatinine Ratio 21.9 (10-20); Blood Urea Nitrogen 21 mg/dl (6-23); Calcium 8.3 mg/dl (8.6-10.3); Carbon Dioxide 24 mmol/L (21-32); Chloride 109 mmol/L (98-107); Creatinine Clr Calc Pharmacy 89.6 ml/min; Est GFR (African American) 71.9 ml/min; Est GFR (Non-African American) 62.1 ml/min; Globulin 2.4 gm/dl (2.5-4.0); Glucose 87 mg/dl (70-99(Fasting)); Sodium 139 mmol/L (136-145); Total Protein 5.4 gm/dl (6.0-8.3)
[2023-11-23 12:19] LABS: Potassium 4.1 mmol/L (3.5-5.1)
--- NOTE | 2023-11-28 09:05 | Discharge Summary ---
Discharge Summary Date of Service November 23, 2023 Principal Dx & Hospital Course #1 = Principal Diagnosis (1) Sepsis: -Initially presented with right ureterolithiasis and hydronephrosis, UTI, sepsis -Went urgently for right ureteral stent placement on 11/09, Coburn left in place post procedure but then removed on 11/16 -Transient postprocedural septic shock responsive to IV fluids and 2 doses of phenylephrine now resolved. -Urine cultures growing pansensitive E. coli, blood cultures are negative -Leukocytosis resolved, platelets mildly low likely from sepsis but now normalized, remains afebrile -Has completed a 7-day course of ceftriaxone-developed a drug eruption rash diffusely on day 7 of treatment and ceftriaxone was stopped (see below assessment) -Repeat renal US shows resolution of hydronephrosis -With KENYON as a result of hypotension/ATN now much improved -With elevated LFTs on admission which are also now improved. And with myocardial demand ischemia with troponin of 344 now back to normal -WBC count went back up gain but now down-trending, no longer with leukocytosis. Patient will require outpatient follow up with urology regarding definitive stone management as well as stent management. Patient is aware. F/u as outpt with Urology for stone and stent management (2) UTI (urinary tract infection): -Present on admission. E. coli Pansensitive as above -Now monitoring off of abx. Received a total of 7 days of IV Rocephin -Monitor WBC- noted slight increase on 11/17- now down-trending again. Leukocytosis now resolved. -Monitor closely, if persistent leukocytosis or symptoms will reculture and con sewer pipe sorter ID evaluation. (3) Acute kidney injury: -Secondary to ATN associated with her episode of postprocedural septic shock. FeNa 2.6% -Initially received IV fluids which have since been stopped -Renal US with resolved hydronephrosis after ureteral stent placed -Creatinine peaked at 3.6 and now downtrending -Remains with good urine output but with worsening lower extremity edema- on 11/18/23 received 2 doses of Lasix. Had significant volume output per patient. Incontinent so difficult to monitor strict I's and O's. Will monitor volume status closely. -Nephrology following recommendations appreciated -Previously noted associated hyperkalemia now resolved with Patiromer Approaching euvolemic status but will noted with some fluid in addition to chronic lymphedema. -Cr improve to 1.07 (4) Drug eruption: -On day 7 of Ceftriaxone therapy patient developed diffuse drug eruption rash that is pruritic all over her body, likely secondary to ceftriaxone -WBC count was elevated possibly due to reaction? Her eosinophils are somewhat elevated but so her all of her WBC differentials -Discontinued ceftriaxone and started Zyrtec 10 mg p.o. twice daily, no need for steroids at this point-pruritus is improving, rash starting to improve -Added ceftriaxone to allergy list -Some persistence of rash in LLE- if continues to persist may consider topical hydrocortisone vs a small course of po prednisone- patient would like to continue to hold off for now- will monitor clinically and start as indicated. (5) Oral herpes simplex infection: -Continue on topical acyclovir, avoid po valtrex at this time due to risk of ATN (6) Right ureteral calculus: -S/p ureteral stent placement. -Patient is aware she needs ongoing Urology follow up for definitive stone treatment and stent removal (7) Atrial fibrillation with RVR: -Present on admission. Now rate controlled. -Her diltiazem has been on hold since admission due to previous hypotension- rates controlled on metoprolol alone -Have since discontinued tele monitoring -AC: Continue Pradaxa 150mg bid -No need to resume diltiazem on discharge (8) Demand ischemia: -Troponin elevation without chest pain or significant EKG changes. Trop up to 344 and was not repeated until 11/17 at which time it was normal -No evidence of acute coronary syndrome (9) Morbid obesity: -BMI 64.1 significant weight loss recommended -Counseled on diet and lifestyle modifications -Consider pharmacotherapy Ozempic or Mounjaro as an outpatient (10) Hip pain: -Reports started after turning -Patient reports it feels like musculoskeletal -Discussed with OT- was able to participate fully in activity, not limiting ROM. Had some pain at the end of session -Tylenol helping to reduce pain significantly -Pain now improving Plan Right ovarian cyst-followed by SALES OUTFITTER in the past--> stable in size from previous. Needs outpatient SALES OUTFITTER follow up. Notes For Next Care Provider Needs outpatient SALES OUTFITTER follow up. for ovarian cyst Admission HPI Per Admitting Provider Sara Motta is a 63 year old female with significant history of kidney stones who presents to the ER with right sided flank/abdominal pain. Symptoms started yesterday and she felt like she put her back out. Flank pain started radiating around to her front. No dysuria, change in frequency/smell of urine. Severity 5/10 on arrival to the ER. Constant pain, relieved with morphine given in the ER. Associated chills and vomiting this morning therefore called EMS. Discharge Exam Constitutional WD/WN, vitals as above well developed and + morbidly obese; no acute distress Eyes no scleral abnormality, no corneal abnormality and normal pupil size ENMT Mouth: no oral mucosal abnormality and oral mucous membranes not dry Neck normal visual inspection, trachea midline and + thick neck Respiratory normal respiratory effort Auscultation: lungs clear to auscultation bilaterally (anteriorly), + rales and + wheezes Cardiovascular Rate/Rhythm: regular rate Heart Sounds: normal S1 and normal S2; no murmur Extremities: normal capillary refill, + pedal edema and + edema; no calf tenderness Gastrointestinal (Abdomen) normal bowel sounds, soft, nontender, no hepatosplenomegaly Inspection/Auscultation: abdomen normal to inspection; abdomen not distended Percussion/Palpation: + abdomen tender (right sided) and abdomen soft Neurologic moves all extremities and awake; not confused Psychiatric A+Ox3, euthymic affect Updated Medication List Medication Instructions Recorded Confirmed Type vit C,E,zinc,copper-actvr9t 250 1 cap PO QAM 02/28/19 11/10/23 History mg-lutein 5 mg-zeaxanthin 1 mg capsule (Ocuvite Adult 50 Plus) doxycycline hyclate 100 mg capsule 100 mg PO QAM #90 caps 11/12/22 11/10/23 Rx dabigatran etexilate 150 mg 150 mg PO BID #180 caps 02/10/23 11/10/23 Rx capsule (Pradaxa) metoprolol tartrate 100 mg tablet 100 mg PO BID #180 tabs 02/10/23 11/10/23 Rx cholecalciferol (vitamin D3) 50 50 mcg PO QAM #90 caps 02/23/23 11/10/23 Rx mcg (2,000 unit) capsule (Vitamin D3) vibegron 75 mg tablet (Gemtesa) 75 mg PO QPM #90 tabs 11/01/23 11/10/23 Rx metronidazole 0.75 % topical cream 1 applic topical BID PRN FLARE 11/10/23 11/10/23 History lidocaine 5 % topical patch 1 patch transdermal QAM #15 ea 11/23/23 Rx miconazole nitrate 2 % topical 1 applic EXT DAILY PRN skin 11/23/23 Rx powder (Desenex) cleansing #85 grams Hospital Stay Data Consultations 11/10/23 15:15 Consult Urology Stat 11/13/23 09:25 Consult Nephrology Routine Procedures Performed Operation Date: 11/10/23 12:40 Actual Procedures p Cystoscopy, Right ureteral Stent Placement(Right) - Gómez García MD Diagnostic Imagining Performed 11/10/23 FL retrograde includes kub Routine 11/10/23 13:25 CT stones [CT abd pelvis wo con] Stat 11/12/23 09:07 US Renal Bladder [US renal/blad retro comp] Urgent Pending Results Patient Have Any Pending Studies at Discharge: No Discharge Instructions Given to Patient (Per Discharging Provider) You were treated for cellulitis. You completed your course of antibiotics. Will recommend followup with PCP in 1-2 weeks. Total Time Total Time Spent Total Time Spent (In Minutes): 32 Coding Level of Care Code 25371 INP/OBS DISCH >30 MIN Diagnoses Sepsis A41.9 UTI (urinary tract infection) N39.0 Acute kidney injury N17.9 Drug eruption L27.0 Oral herpes simplex infection B00.2 Right ureteral calculus N20.1 Atrial fibrillation with RVR I48.91 Demand ischemia I24.89 Morbid obesity E66.01 Hip pain M25.559
== END 2023-11-23 16:39 | disposition home or self-care (01) | DRG 853 ==
LOC: ED 13:19 → SUATTDRO 15:24 → 2S 15:24 → 3N 11-16 15:39
DX: L27.1 Localized skin eruption due to drugs and medicaments taken internally; Z88.1 Allergy status to other antibiotic agents; N83.291 Other ovarian cyst, right side; I24.89 Other forms of acute ischemic heart disease; N17.0 Acute kidney failure with tubular necrosis; Z87.891 Personal history of nicotine dependence; N13.6 Pyonephrosis; B96.20 Unspecified Escherichia coli [E. coli] as the cause of diseases classified elsewhere; A41.9 Sepsis, unspecified organism; E87.5 Hyperkalemia; R73.9 Hyperglycemia, unspecified; E66.01 Morbid (severe) obesity due to excess calories; I48.91 Unspecified atrial fibrillation; Z86.16 Personal history of COVID-19; Z79.01 Long term (current) use of anticoagulants; Z79.899 Other long term (current) drug therapy; T81.12XA Postprocedural septic shock, initial encounter; T36.1X5A Adverse effect of cephalosporins and other beta-lactam antibiotics, initial encounter; I10 Essential (primary) hypertension; I89.0 Lymphedema, not elsewhere classified; Z68.44 Body mass index [BMI] 60.0-69.9, adult

== ENCOUNTER 2024-02-11 15:40 | Inpatient (IN) ==
--- NOTE | 2024-02-11 16:51 | Emergency Department Note ---
Impression & Plan Leg weakness, Anemia, High serum chloride ED Provider Note NAME: MAHESH BOCANEGRA AGE: 63 SEX: F : 1960 ARRIVES VIA: Ambulance INFORMANT: Patient ED PROVIDER(S): Paolo Banda DO CHIEF COMPLAINT: Right leg weakness and numbness HPI: Patient is a 63-year-old female with a past medical history of morbid obesity, sepsis, hydronephrosis, renal colic, A-fib on dabigatran who presents to the ER for weakness in the right leg which has been present for the past 2 weeks. She notes that she has been living upstairs as she is unable to get down the steps. Now she cannot even get herself on the stepstool to get into bed. She feels like she is dragging her foot. She has numbness at the base of the foot and posteriorly in the calf. She notes 2 days ago she felt a pop while putting on her shoe and symptoms have been worse since then. She has no pain in the leg. Denies any headache or change in vision. No chest pain or shortness of breath. No nausea vomiting or diarrhea. ADDITIONAL HISTORY OBTAINED: Per HPI Chronic Medical/Social Conditions Affecting Care: Per HPI PAST MEDICAL HISTORY:See Below PAST SURGICAL HISTORY:See Below FAMILY HISTORY:See Below SOCIAL HISTORY:See Below HOME MEDICATIONS:See Below ALLERGIES:See Below VITALS:See Below PHYSICAL EXAMINATION: GENERAL: Sitting up in bed, alert, well appearing, well nourished, no distress, non-toxic EYE EXAM: normal conjunctiva. PERRL and EOM's grossly intact. OROPHARYNX: no exudate, no erythema, lips, buccal mucosa, and tongue normal and mucous membranes are moist NECK: supple, no nuchal rigidity, no adenopathy, non-tender LUNGS: Clear to auscultation. Normal chest wall mechanics HEART: no murmurs, S1 normal and S2 normal ABDOMEN: abdomen soft, non-tender, normo-active bowel sounds, no masses, no rebound or guarding. BACK: Back is symmetrical on inspection and there is no deformity, no midline tenderness, no CVA tenderness. SKIN: no rashes and no bruising UPPER EXTREMITIES: upper extremities are grossly normal. LOWER EXTREMITIES: Flexion-extension of the right hip is a 4 out of 5 in comparison to the left which is 5 out of 5. Bilateral knees ankles and EHL's appear to be 5 out of 5 although difficult due to body habitus. DPs 2 out of 4. Right calf is smaller than left. Achilles is intact. NEURO EXAM: Normal sensorium, cranial nerves II-XII intact, normal speech, no weakness of arms No drift. Finger to nose intact. Gross sensation intact. MEDICAL DECISION MAKING: Patient is a 63-year-old female who presents ER for the above-stated complaint. IV was established medicos obtained. Labs show no significant leukocytosis. Mild anemia at 9.9. BMP with slightly elevated chloride at 108. LFTs bilirubin is unremarkable. Patient appears to have some weakness in the right hip. No dropfoot or any other focal weakness. This been present for the past 2 weeks. Do favor that this is likely not secondary to a stroke. CT head was negative. CT lumbar spine was fairly unremarkable. Patient was updated bedside. She is been unable to get around. She was discussed with the hospitalist admitted for further workup. Consults/Care Managements Discussions: Per [facility] Triage Nursing notes reviewed. Limited review of prior medical records performed Vital Signs: reviewed and remarkable for no significant abnormalities Differential diagnosis: Differential Diagnosis includes but is not limited to ischemic Stroke, hemorrhagic stroke, bells palsy, mass, neoplasm, migraine headache, seizure, subarachnoid hemorrhage, TIA, and transient global amnesia. ER treatment provided: See below Diagnostics interpreted by me include EKG and cardiac monitoring as listed below: -Cardiac Monitoring: An order was placed for continuous cardiac monitoring. The monitor shows a rate of 90 with sinus rhythm. -ECG: A-fib rate of 93 Normal axis No PVCs QTc 469 -Laboratory studies:Interpreted by me as stated above in MDM and shown below. Imaging studies: Xrays: As interpreted by me:none CTs show: CT of the head per my preliminary interpretation showed no obvious large bleed CT of the head and lumbar spine showed DJD in the lumbar spine and no acute pathology in the brain Procedures:none Critical Care: None Past Med/Surg History Problem List (Updated 02/11/24 @ 21:26 by Paolo Banda DO) High serum chloride (Acute) Anemia (Acute) Leg weakness (Acute) Right leg weakness Encounter for preoperative assessment (Acute) Hip pain 11/19/23 Hip pain 11/19/23 Oral herpes simplex infection 11/15/23 Hyperkalemia Acute kidney injury 11/11/23 Morbid obesity UTI (urinary tract infection) Renal colic (Acute) 11/10/23 Sepsis (Acute) Sepsis Right ureteral calculus Hydronephrosis of right kidney Degenerative arthritis of knee, bilateral Hematuria, gross Nephrolithiasis (Chronic) Mixed incontinence (Chronic) Encounter for screening for malignant neoplasm of rectum Encounter for screening for malignant neoplasm of colon Lymphedema LE, stable per pt Encounter for pre-operative examination Anticoagulant long-term use (Acute) Impaired fasting glucose (Acute) Vitamin D deficiency (Acute) Preop testing Ureterocele Right ovarian cyst Hematuria Incontinence A-fib Permanent, on pradaxa, monitored by PCP Left leg cellulitis (Acute) 10/30/17 Skin problem (Chronic) 03/23/17 History of cellulitis HTN (hypertension) (Chronic) Left leg cellulitis (Acute) 12/31/16 Medical History (Updated 02/11/24 @ 21:26 by Paolo Banda DO) Difficult intubation D&C, hysteroscopy: 03/13/19: Grade 1 view, Glidescope 3.0, ETT 7.0 at [facility] Right ovarian cyst Mixed stress and urge incontinence Lymphedema bilateral lower extremity Degenerative arthritis History of sepsis Atrial fibrillation pradaxa Morbid obesity with BMI of 50.0-59.9, adult History of COVID-19 03/2020 > symptoms at time of exhaustion, achiness > resolved Kidney stones History of cellulitis hx of recurrent cellulitis/no issues x 1+ years on maintenance doxycycline Hypertension Surgical History History of cystoscopy Cystoscopy, urethral dilation, ureteral stone extraction, stent (01/15/20): MAC at [facility] History of dilatation and curettage D&C, hysteroscopy (03/13/19): Grade 1 view, Glidescope 3.0, ETT 7.0 at [facility] Melanoma s/p excision (RLE)-10-15 YRS AGO BCC (basal cell carcinoma of skin) s/p excision (arm) H/O tooth extraction History of surgery melanoma removal and skin graft right LE History of mandibular surgery No ROM limitations Hx of colonoscopy Family History Mother Diabetes Hypertension Grandfather Myocardial infarction Other No family history of adverse response to anesthesia Denies family history of Ovarian cancer Prostate cancer Breast cancer Colorectal cancer Social History Smoking Status: Never smoker Second Hand Exposure: No; Do You Dip or Chew Tobacco: No; Hx Alcohol Use: No Hx Substance Use: No Preferred Language: Greenlandic Communication Ability: Effective Visual Impairment: No Limitations Lab Rn Required: No Beliefs That Will Affect Care: None marital status: Single Current Living Situation: Alone Current Living Situation Comment: lives with mother current occupational status: employed 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 Feels Safe at Home: Yes Childhood Exposure to Second-Hand Smoke: No Diet: regular caffeine: Yes Dental Care, Regularly: Yes Seatbelt Use: always Sunscreen Use: Yes Assistive Devices: Cane and Walker Allergies Allergies Allergy/AdvReac Type Severity Reaction Status Date / Time bacitracin Allergy Intermediate Hives Verified 02/03/24 11:54 ceftriaxone Allergy Intermediate Rash Verified 02/03/24 11:54 neomycin Allergy Intermediate Hives Verified 02/03/24 11:54 polymyxin B Allergy Intermediate Hives Verified 02/03/24 11:54 Home Meds Previous Rx's Medication Instructions Recorded doxycycline hyclate 100 mg capsule 100 mg PO QAM #90 caps 11/12/22 metoprolol tartrate 100 mg tablet 100 mg PO BID #180 tabs 02/10/23 cholecalciferol (vitamin D3) 50 50 mcg PO QAM #90 caps 02/23/23 mcg (2,000 unit) capsule (Vitamin D3) miconazole nitrate 2 % topical 1 applic EXT DAILY PRN skin 11/23/23 powder (Desenex) cleansing #85 grams dabigatran etexilate 150 mg 150 mg PO BID #180 caps 12/15/23 capsule (Pradaxa) tamsulosin 0.4 mg capsule 0.4 mg PO HS #30 caps 02/03/24 Results & Data (ED) Vital Signs Vital Signs - 24 hr 02/11/24 15:41 02/11/24 17:10 Temperature 36.8 C Temperature Source Oral Pulse Rate 88 85 Respiratory Rate 22 Blood Pressure 107/87 Blood Pressure Mean 93 Blood Pressure Position Semi-fowlers Pulse Oximetry 97 Oxygen Delivery Method Room Air Sepsis Recent Fever Within 48 Hours No Sepsis New/Unexplained Change in Mental Status No Sepsis Action Taken by Nursing No Action Required Laboratory Data 02/11/24 16:55 02/11/24 16:55 Lab Results 02/11/24 Range/Units 16:55 WBC 6.17 (4.8-10.8) K/ul RBC 3.31 L (4.20-5.40) M/uL Hgb 9.9 L (12.0-16.0) g/dl Hct 31.3 L (37.0-47.0) % MCV 94.6 (80.0-100.0) fL MCH 29.9 (25.0-34.0) pg MCHC 31.6 L (32.0-36.0) g/dL RDW Std Deviation 48.6 H (36.4-46.3) fL RDW Coeff of Sujey 13.9 (11.5-14.5) % Plt Count 234 (130-400) K/uL MPV 9.7 (9.4-12.4) fL Immature Gran % (Auto) 1.0 % Neut % (Auto) 79.6 % Lymph % (Auto) 10.7 % [place] % (Auto) 7.3 % Eos % (Auto) 1.1 % Baso % (Auto) 0.3 % Neut # (Auto) 4.91 (1.40-6.50) K/uL Lymph # (Auto) 0.66 L (1.20-3.40) K/uL [place] # (Auto) 0.45 (0.11-0.59) K/uL Eos # (Auto) 0.07 (0.00-0.50) K/uL Baso # (Auto) 0.02 (0.00-0.20) K/uL Immature Gran # (Auto) 0.06 (0.01-0.20) K/uL Sodium 141 (136-145) mmol/L Potassium 4.1 (3.5-5.1) mmol/L Chloride 108 H (98-107) mmol/L Carbon Dioxide 28 (21-32) mmol/L Anion Gap 5 (3-11) BUN 15 (6-23) mg/dl Creatinine 1.09 (0.6-1.2) mg/dl Est Cr Clr Drug Dosing 75.6 ml/min eGFR 56.38 BUN/Creatinine Ratio 13.8 (10-20) Glucose 103 H (70-99(Fasting)) mg/dl Calcium 9.0 (8.6-10.3) mg/dl Total Bilirubin 0.7 (0.2-1.0) mg/dl AST 16 (13-39) U/L ALT 9 (7-52) U/L Alkaline Phosphatase 62 (34-104) U/L Total Protein 5.9 L (6.0-8.3) gm/dl Albumin 3.5 (3.4-5.0) gm/dl Globulin 2.4 L (2.5-4.0) gm/dl Albumin/Globulin Ratio 1.5 (0.9-2) Administered Medications Lorazepam (Lorazepam 0.5 Mg Tab) 0.5 mg PO ONE PRN PRN Reason: pre-MRI Stop: 03/12/24 18:30 Last Admin: 02/11/24 19:02 Dose: 0.5 mg Documented By: CEF Imaging Data Radiologist's Impression: Head CT 02/11/24 16:45 CT OF THE HEAD WITHOUT CONTRAST CLINICAL HISTORY: Right leg weakness. COMPARISON STUDY: No previous studies for comparison. CT DOSE: 1100.35 mGy.cm TECHNIQUE: Helical axial images of the head were obtained without IV contrast. Automated exposure control was utilized for the study. A dose lowering technique was utilized adhering to the principles of ALARA. FINDINGS: No acute intracranial hemorrhage, midline shift or mass effect is present. A 6 mm hypodense focus within the left basal ganglia is chronic. This could reflect a prominent perivascular space or less likely old lacunar infarct. The ventricular system is unremarkable. The basal cisterns are patent. No extra- axial collections are present. There are no findings to suggest acute dural sinus thrombosis or acute territorial infarct. No significant calvarial abnormalities are present. Visualized portions of the sinuses and mastoid air cells are clear. IMPRESSION: No acute intracranial findings. ACT 112: Negative or not required by law. Electronically signed by: Gelacio Grove M.D. 02/11/2024 5:[address] 02/11/24 16:45 CT OF THE LUMBAR SPINE CLINICAL HISTORY: Lower back pain. COMPARISON STUDY: CT of the abdomen and pelvis January 04, 2024. TECHNIQUE: Helical axial images of the lumbar spine were obtained. Sagittal and coronal reconstructions were viewed. Automated exposure control was utilized for the study. A dose lowering technique was utilized adhering to the principles of ALARA. FINDINGS: Bilateral ureteral stents are partially imaged. Moderate right hydronephrosis has developed since CT of January 04, 2024. There is also moderate dilatation of the left renal pelvis. A nonobstructing 2 mm right renal calculus is present. Please note that the ureters are not imaged in their entirety on this exam. Several small right renal calculi are present. Bilateral L5 pars defects are noted without anterolisthesis. There are no lumbar spine fractures. No osseous lesions are present. Central canal and neural foramen are suboptimally assessed given CT technique. There is moderate multilevel disc space narrowing, endplate osteophytosis and facet arthrosis within the lumbar spine. A second disc phenomenon at several levels within the lumbar spine. A right ovarian lesion IMPRESSION: 1. No acute lumbar spine fracture or subluxation. 2. Moderate multilevel degenerative disc disease and facet arthrosis within the lumbar spine. Suboptimal evaluation of the central canal and neural foramen given CT technique. 3. Partially visualized bilateral ureteral stents. Moderate right hydronephrosis. Moderate dilatation of the left renal pelvis, partially imaged on this exam. 4. Nonobstructing small right renal pelvis calculus. Right nephrolithiasis. ACT 112: Negative or not required by law. Electronically signed by: Gelacio Grove M.D. 02/11/2024 6:12 PM Discharge Plan Visit Data Chief Complaint: Leg Injury/Pain Stated Complaint: LEG NUMBNESS ED Provider: Paolo Banda Discharge Problem: Leg weakness, Anemia, High serum chloride Patient Disposition: Admitted As Inpatient Discharge Instructions Interventions: ED Discharge Assessment Last Done: 02/11/24 20:12 Discharge Problem: Leg weakness Qualifiers: Laterality: unspecified laterality Qualified Code(s): R29.898 - Other symptoms and signs involving the musculoskeletal system Anemia Qualifiers: Anemia type: unspecified type Qualified Code(s): D64.9 - Anemia, unspecified
[2024-02-11 17:11] LABS: Basophils # (auto) 0.02 K/uL (0.00-0.20); Basophils % (auto) 0.3 %; Eosinophils # (auto) 0.07 K/uL (0.00-0.50); Eosinophils % (auto) 1.1 %; Hematocrit (blood only) 31.3 % (37.0-47.0); Hemoglobin 9.9 g/dl (12.0-16.0); Immature Granulocytes # (auto) 0.06 K/uL (0.01-0.20); Lymphocytes # (auto) 0.66 K/uL (1.20-3.40); Lymphocytes % (auto) 10.7 %; Mean Corpuscular Hemoglobin 29.9 pg (25.0-34.0); Mean Corpuscular Hgb Conc 31.6 g/dL (32.0-36.0); Mean Corpuscular Volume 94.6 fL (80.0-100.0); Mean Platelet Volume 9.7 fL (9.4-12.4); Monocytes # (auto) 0.45 K/uL (0.11-0.59); Monocytes % (auto) 7.3 %; Neutrophils # (auto) 4.91 K/uL (1.40-6.50); Neutrophils % (auto) 79.6 %; Platelet Count 234 K/uL (130-400); RDW Coefficient of Variation 13.9 % (11.5-14.5); RDW Standard Deviation 48.6 fL (36.4-46.3); Red Blood Count 3.31 M/uL (4.20-5.40); White Blood Count 6.17 K/ul (4.8-10.8)
[2024-02-11 17:24] LABS: Albumin Globulin Ratio 1.5 (0.9-2); Albumin Level 3.5 gm/dl (3.4-5.0); BUN Creatinine Ratio 13.8 (10-20); Bilirubin,Total 0.7 mg/dl (0.2-1.0); Creatinine Clr Calc Pharmacy 75.6 ml/min; Globulin 2.4 gm/dl (2.5-4.0); Potassium 4.1 mmol/L (3.5-5.1); Total Protein 5.9 gm/dl (6.0-8.3)
--- NOTE | 2024-02-11 17:49 | CT Scan Report ---
CT OF THE HEAD WITHOUT CONTRAST CLINICAL HISTORY: Right leg weakness. COMPARISON STUDY: No previous studies for comparison. CT DOSE: 1100.35 mGy.cm TECHNIQUE: Helical axial images of the head were obtained without IV contrast. Automated exposure con trol was utilized for the study. A dose lowering technique was utilized adhering to the principles o f ALARA. FINDINGS: No acute intracranial hemorrhage, midline shift or mass effect is present. A 6 mm hypodense focus within the left basal ganglia is chronic. This could reflect a prominent perivascular space or less likely old lacunar infarct. The ventricular system is unremarkable. The basal cisterns are chambers nt. No extra-axial collections are present. There are no findings to suggest acute dural sinus thromb osis or acute territorial infarct. No significant calvarial abnormalities are present. Visualized por tions of the sinuses and mastoid air cells are clear. IMPRESSION: No acute intracranial findings. ACT 112: Negative or not required by law. Electronically signed by: Gelacio Grove M.D. 02/11/2024 5:48 PM
--- NOTE | 2024-02-11 18:14 | CT Scan Report ---
CT OF THE LUMBAR SPINE CLINICAL HISTORY: Lower back pain. COMPARISON STUDY: CT of the abdomen and pelvis January 04, 2024. TECHNIQUE: Helical axial images of the lumbar spine were obtained. Sagittal and coronal reconstruct ions were viewed. Automated exposure control was utilized for the study. A dose lowering technique was utilized adhering to the principles of ALARA. FINDINGS: Bilateral ureteral stents are partially imaged. Moderate right hydronephrosis has developed since CT of January 04, 2024. There is also moderate dilatation of the left renal pelvis. A nonobs tructing 2 mm right renal calculus is present. Please note that the ureters are not imaged in their e ntirety on this exam. Several small right renal calculi are present. Bilateral L5 pars defects are no elliott without anterolisthesis. There are no lumbar spine fractures. No osseous lesions are present. Hugh tral canal and neural foramen are suboptimally assessed given CT technique. There is moderate multile albert disc space narrowing, endplate osteophytosis and facet arthrosis within the lumbar spine. A secon d disc phenomenon at several levels within the lumbar spine. A right ovarian lesion IMPRESSION: 1. No acute lumbar spine fracture or subluxation. 2. Moderate multilevel degenerative disc disease and facet arthrosis within the lumbar spine. Subopti mal evaluation of the central canal and neural foramen given CT technique. 3. Partially visualized bilateral ureteral stents. Moderate right hydronephrosis. Moderate dilatation of the left renal pelvis, partially imaged on this exam. 4. Nonobstructing small right renal pelvis calculus. Right nephrolithiasis. ACT 112: Negative or not required by law. Electronically signed by: Gelacio Grove M.D. 02/11/2024 6:12 PM
--- NOTE | 2024-02-11 18:31 | History & Physical Report ---
Date of Service February 11, 2024 Assessment & Plan (1) Right leg weakness: Plan: Right lower extremity weakness 2 weeks, with worsening in the last 2 days. Intermittent numbness on the back of her right calf, sensation is intact at time of provider assessment. Does have some strength asymmetry 4+/5 hip flexion, ankle dorsiflexion/plantarflexion compared to 5/5 on the left. No urinary change although patient has had incontinence of urine for around 3 months worsen following her urolologic stent placement. No cranial nerve deficits Patient does have a history of sciatica with some pain, but notes her current weakness is not pain limited and feels different and notes that she feels like she has to drag her legs at time CThead without acute findings CTL-spine: No acute fracture or subluxation. Multilevel degenerative disc disease. Suboptimal central canal exam by technique. Bilateral ureteral stents are in place, moderate right hydro. Nonobstructing small right renal pelvis calculus, moderate dilation of the renal pelvis partially imaged. CThead: No acute findings. 2 weeks of symptoms with a slowly progressive and intermittently waxing waning, with no other neurologic or cranial nerve deficits inconsistent with CVA MRIL-spine ordered to evaluate for lumbar pathology PT/OT pending (2) A-fib: Plan: A-fib EKG A-fib without territorial ST/T wave changes Dabigatran, metoprolol continued Adequate rate at time of admissionno chest pain or chest pressure at any point (3) History of cystoscopy: Plan: Indwelling ureteral stents With recent cystoscopy and clot evacuation due to right ureteral calculus. Right stent exchanged, left ureteral stent placed . Patient was to maintain stents for 1-2 weeks and then to follow-up with urology as outpatient for removal Creatinine is at baseline 1.09, stents remain in place No UTI symptoms on admission No acute change in management History of Present Illness Primary Care Provider: ABIGAIL Quick 63yo F morbidly obese F with RLE weakness. Weak x2 weeks, worse last 2 days. REports she felt a pop after putting her shoe on and subsequently with foot numbness difficulty with hip flexion. Ankle dorsiflexion/plantarflexion are intact per ER report. Patient recommended for admission for PT/OT and placement. CT without reported abnormality although suboptimal for spinal exam. Sara is seen at the bedside. She clarifies that the pop she felt and putting her she 1 was actually in her knee, but separate from this over the last 2 weeks she has had weakness in her right lower extremity. She has had some transient and intermittent numbness in the back of her calf. She has had pain which radiates down the back of her leg intermittently in the past with sciatica, she notes that her current weakness feels different than this and is separate from pain. She has not had any upper extremity weakness. No confusion speech difficulties or any symptoms in her left leg. She reports that the symptoms have slowly progressed over the last 2 weeks but the weakness seems much worse in the last 2 days and she was unable to ambulate down the stairs in her home because of this. She feels like her right leg and foot are dragging somewhat. She reports that she does have chronic incontinence worse in the last 3 months with stent placement but this has not changed. Denies saddle anesthesia. She has had recent admissions with sepsis and UTI, but has had no urinary change no dysuria no fevers chills or sweats and does not currently feel like she has a UTI No chest pain chest pressure at any point She does have chronic lymphedema which has not changed. She does not have pain in the back of her calves currently. She takes Pradaxa twice daily for A-fib stroke prophylaxis and has been compliant with this although she missed her morning dose today due to coming into the hospital. Medical History: Reviewed Medications: Reviewed Surgical History: Reviewed Family history: Reviewed Allergies: Reviewed Social History: No tobacco, rare social ETOH use Code Status: Full Allergies Allergy/AdvReac Type Severity Reaction Status Date / Time bacitracin Allergy Intermediate Hives Verified 02/03/24 11:54 ceftriaxone Allergy Intermediate Rash Verified 02/03/24 11:54 neomycin Allergy Intermediate Hives Verified 02/03/24 11:54 polymyxin B Allergy Intermediate Hives Verified 02/03/24 11:54 Home Medications Medication Instructions Recorded Confirmed Type vit C,E,zinc,copper-nxcil5b 250 1 cap PO QAM 02/28/19 02/03/24 History mg-lutein 5 mg-zeaxanthin 1 mg capsule (Ocuvite Adult 50 Plus) doxycycline hyclate 100 mg capsule 100 mg PO QAM #90 caps 11/12/22 02/03/24 Rx metoprolol tartrate 100 mg tablet 100 mg PO BID #180 tabs 02/10/23 02/03/24 Rx cholecalciferol (vitamin D3) 50 50 mcg PO QAM #90 caps 02/23/23 02/03/24 Rx mcg (2,000 unit) capsule (Vitamin D3) vibegron 75 mg tablet (Gemtesa) 75 mg PO QPM #90 tabs 11/01/23 02/03/24 Rx metronidazole 0.75 % topical cream 1 applic topical BID PRN FLARE 11/10/23 02/03/24 History miconazole nitrate 2 % topical 1 applic EXT DAILY PRN skin 11/23/23 02/03/24 Rx powder (Desenex) cleansing #85 grams dabigatran etexilate 150 mg 150 mg PO BID #180 caps 12/15/23 02/03/24 Rx capsule (Pradaxa) tizanidine 2 mg tablet 2 mg PO TID PRN muscle spasticity 01/31/24 02/03/24 Rx #30 tabs tramadol 50 mg tablet 50 mg PO TID PRN pain #21 tabs 01/31/24 02/03/24 Rx oxycodone-acetaminophen 5 mg-325 1 tab PO Q8H PRN pain #10 tabs 02/01/24 02/03/24 Rx mg tablet (Percocet) phenazopyridine 200 mg tablet 200 mg PO Q8H PRN pain #10 tabs 02/03/24 Rx (Pyridium) tamsulosin 0.4 mg capsule 0.4 mg PO HS #30 caps 02/03/24 Rx Past Med/Surg History Problem List (Updated 02/11/24 @ 18:50 by Eliezer Reich MD) Right leg weakness Encounter for preoperative assessment (Acute) Hip pain 11/19/23 Hip pain 11/19/23 Oral herpes simplex infection 11/15/23 Hyperkalemia Acute kidney injury 11/11/23 Morbid obesity UTI (urinary tract infection) Renal colic (Acute) 11/10/23 Sepsis (Acute) Sepsis Right ureteral calculus Hydronephrosis of right kidney Degenerative arthritis of knee, bilateral Hematuria, gross Nephrolithiasis (Chronic) Mixed incontinence (Chronic) Encounter for screening for malignant neoplasm of rectum Encounter for screening for malignant neoplasm of colon Lymphedema LE, stable per pt Encounter for pre-operative examination Anticoagulant long-term use (Acute) Impaired fasting glucose (Acute) Vitamin D deficiency (Acute) Preop testing Ureterocele Right ovarian cyst Hematuria Incontinence A-fib Permanent, on pradaxa, monitored by PCP Left leg cellulitis (Acute) 10/30/17 Skin problem (Chronic) 03/23/17 History of cellulitis HTN (hypertension) (Chronic) Left leg cellulitis (Acute) 12/31/16 Medical History (Updated 02/11/24 @ 18:50 by Eliezer Reich MD) Difficult intubation D&C, hysteroscopy: 03/13/19: Grade 1 view, Glidescope 3.0, ETT 7.0 at [facility] Right ovarian cyst Mixed stress and urge incontinence Lymphedema bilateral lower extremity Degenerative arthritis History of sepsis Atrial fibrillation pradaxa Morbid obesity with BMI of 50.0-59.9, adult History of COVID-19 03/2020 > symptoms at time of exhaustion, achiness > resolved Kidney stones History of cellulitis hx of recurrent cellulitis/no issues x 1+ years on maintenance doxycycline Hypertension Surgical History History of cystoscopy Cystoscopy, urethral dilation, ureteral stone extraction, stent (01/15/20): MAC at [facility] History of dilatation and curettage D&C, hysteroscopy (03/13/19): Grade 1 view, Glidescope 3.0, ETT 7.0 at [facility] Melanoma s/p excision (RLE)-10-15 YRS AGO BCC (basal cell carcinoma of skin) s/p excision (arm) H/O tooth extraction History of surgery melanoma removal and skin graft right LE History of mandibular surgery No ROM limitations Hx of colonoscopy Family History Mother Diabetes Hypertension Grandfather Myocardial infarction Other No family history of adverse response to anesthesia Denies family history of Ovarian cancer Prostate cancer Breast cancer Colorectal cancer Social History Smoking Status: Never smoker Second Hand Exposure: No; Do You Dip or Chew Tobacco: No; Hx Alcohol Use: No Hx Substance Use: No Preferred Language: Kiswahili Communication Ability: Effective Visual Impairment: No Limitations Plant Utilities Engineer Required: No Beliefs That Will Affect Care: None marital status: Single Current Living Situation: Alone Current Living Situation Comment: lives with mother current occupational status: employed 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 Feels Safe at Home: Yes Childhood Exposure to Second-Hand Smoke: No Diet: regular caffeine: Yes Dental Care, Regularly: Yes Seatbelt Use: always Sunscreen Use: Yes Assistive Devices: Cane and Walker Physical Exam Physical Exam: General: A&Ox3. NAD. Cooperative. HEENT: Atraumatic, normocephalic. EDD. Pulm: CTAB A&P. -wheezes, -rales, -rhonchi. Symmetrical chest rise. No increased work of breathing. No respiratory distress. Cardiac: RRR, -mrg. Radial pulses intact and symmetrical. Abdominal: Nontender, nondistended, soft. BS present. Results & Data Results & Data Vital Signs (Past 12 Hours) Vital Signs Temp Pulse Resp BP Pulse Ox O2 Del Method 02/11/24 17:10 85 02/11/24 15:41 36.8 C 88 22 107/87 97 Room Air PG Care Time/CCT Total # of Minutes Spent Total Time Spent with Patient: Total time spent is greater than 50% in coordination of care (as documented) at patient's floor/unit and/or counseling patient: Coding Level of Care Code 87253 INT INP/OBS CARE 3/75MIN Diagnoses Right leg weakness R29.898 A-fib I48.91 History of cystoscopy Z98.890
[2024-02-11] MEDS: LORazepam 0.5 MG TAB PO PRN (19:02)
[2024-02-11] MEDS ORDERED: POLYETHYLENE (MIRALAX) 17 GM PACK PO PRN (20:42)
[2024-02-11] MEDS ORDERED: oxyCODONE/ACETAMINOPHEN 5mg/325mg TAB PO PRN (20:42)
[2024-02-11] MEDS ORDERED: tiZANidine HCL 4 MG TABLET PO PRN (20:42)
[2024-02-11] MEDS: VIBEGRON 75 MG TAB PO SCH (21:49)
[2024-02-11] MEDS: TAMSULOSIN HCL 0.4 MG CAP PO SCH (21:49)
[2024-02-11] MEDS: METOPROLOL TARTRATE 100 MG TAB PO SCH (21:49)
[2024-02-11] MEDS: DABIGATRAN ETEXILATE 75 MG CAP PO SCH (21:49)
--- NOTE | 2024-02-11 22:55 | Magnetic Resonance Report ---
Exam(s): MRI L SPINE Without Contrast EXAM: MR Lumbar Spine Without Intravenous Contrast CLINICAL HISTORY: Reason for exam: RLE weakness/numbness. TECHNIQUE: Magnetic resonance images of the lumbar spine without intravenous contrast in multiple planes. COMPARISON: No relevant prior studies available. FINDINGS: Vertebrae: There are 5 lumbar type vertebral bodies with a mild generalized curve to the left and normal lumbar lordosis. There is normal vertebral body height and alignment. The bone marrow signal is heterogeneous with reactive endplate changes and areas of focal fat or venous malformations. No acute fracture. There is mild bilateral sacroiliac joint arthropathy. Spinal cord: The conus is normal size, shape and signal characteristics, terminating at T12-L1. There is thickening of the ligamentum flavum at T10-11 flattening the dorsal cord and causing a critical spinal canal stenosis with increased cord signal concerning edema. Soft tissues: There is advanced atrophy of the iliopsoas, paraspinous intraspinous musculature. The aorta and IVC flow voids are intact. The visualized kidneys are unremarkable. DISCS/SPINAL CANAL/NEURAL FORAMINA: L1-L2: Moderate degeneration with annular disc bulge flattening the ventral thecal sac with disc extending to the neural foramina with evidence of impingement or significant stenosis. There is minimal to mild facet arthropathy with mild synovitis. L2-L3: Moderate disc degeneration with annular disc bulge flattening the ventral thecal sac with disc extending to the neural foramina causing a mild right stenosis without evidence of neural impingement. There is mild facet joint arthropathy with mild synovitis. L3-L4: Moderate disc degeneration with annular disc bulge asymmetric to the left causing a mild subarticular recess stenosis with disc and osteophyte extending to the neural foramina causing a mild right and moderately severe left stenosis with impingement of the left L3 nerve or ganglia. There is mild facet joint arthropathy with mild synovitis. L4-L5: Advanced disc degeneration with annular disc bulge causing a mild subarticular recess stenosis with disc and osteophyte extending to the neural foramina causing mild bilateral stenosis with evidence of neural impingement. There is mild facet joint arthropathy with mild synovitis. L5-S1: Moderate disc degeneration with annular disc bulge flattening the ventral thecal sac with disc and osteophyte extending to the neural foramina causing a moderately severe right and mild left stenosis with impingement of the right L5 nerve or ganglion. There is mild facet joint arthropathy with mild synovitis. IMPRESSION: 1. Advanced disc degeneration at L4-5, moderate disc degeneration at L1- L2, L2-3, L3-4 and L5-S1 with annular disc bulging flattening the ventral thecal sac and causing a mild subarticular recess stenosis at L3-4 and L4- 5 without evidence of neural impingement. 2. There is no spinal canal stenosis of the lumbar spine. 3. There is a mild right L2-3, mild right and moderately severe left L3- 4, mild bilateral L4-5, and moderately severe right and mild left L5-S1 neural foraminal stenosis with impingement of the left L3 and right L5 nerve or ganglia. 4. There is mild bilateral sacroiliac joint arthropathy. 5. There is mild bilateral sacroiliac joint arthropathy. 6. No evidence of fracture, infection, tumor or arachnoiditis. 7. There is thickening of the ligamentum flavum at T10-11 with flattening the dorsal cord with increased cord signal concerning edema and causing a critical spinal canal stenosis. Recommend MRI of the thoracic spine for further evaluation. Communications: Verify Receipt Electronically signed by: Michelle Burgos MD 02/11/24 22:54 PM
[2024-02-11] MEDS ORDERED: DEXAMETHASONE SOD INJ 4 MG/ML VIAL IV STA (23:25)
[2024-02-12] MEDS: dexAMETHasone 10 MG in SYRINGE 0 ML IV ONE (00:34)
--- NOTE | 2024-02-12 02:41 | Magnetic Resonance Report ---
Exam(s): MRI T SPINE Without Contrast EXAM: MR Thoracic Spine Without Intravenous Contrast CLINICAL HISTORY: Reason for exam: ?T10-T11 critical canal stenosis. TECHNIQUE: Magnetic resonance images of the thoracic spine without intravenous contrast in multiple planes. COMPARISON: No relevant prior studies available. FINDINGS: Vertebrae: There are 12 thoracic type vertebral bodies with a mild generalized curve to the left and normal thoracic kyphosis. There is a remote fracture deformity of the T3, T4, T5, T6, T7 and T8 segments. No acute fracture. Discs/spinal canal/neural foramina: There is thickening of the ligamentum flavum at T10-11 causing a moderate spinal canal stenosis with AP diameter measuring 8 mm. No acute findings. No significant disc disease. Spinal cord: There is increased signal within the distal thoracic cord at T10-T12, which may represent artifact. Soft tissues: Unremarkable. IMPRESSION: No evidence of acute thoracic spine pathology. Focal spinal canal stenosis at T10-11 secondary to thickened ligamentum flavum. There is increased signal within the distal cord, which may represent artifact. Electronically signed by: Michelle Burgos MD 02/12/24 02:40 AM
[2024-02-12 06:48] LABS: Basophils # (auto) 0.01 K/uL (0.00-0.20); Basophils % (auto) 0.2 %; Eosinophils # (auto) 0.02 K/uL (0.00-0.50); Eosinophils % (auto) 0.4 %; Hematocrit (blood only) 31.1 % (37.0-47.0); Hemoglobin 9.4 g/dl (12.0-16.0); Immature Granulocytes # (auto) 0.03 K/uL (0.01-0.20); Immature Granulocytes % (auto) 0.6 %; Lymphocytes # (auto) 0.36 K/uL (1.20-3.40); Lymphocytes % (auto) 7.2 %; Mean Corpuscular Hemoglobin 29.1 pg (25.0-34.0); Mean Corpuscular Hgb Conc 30.2 g/dL (32.0-36.0); Mean Corpuscular Volume 96.3 fL (80.0-100.0); Mean Platelet Volume 10.1 fL (9.4-12.4); Monocytes # (auto) 0.08 K/uL (0.11-0.59); Monocytes % (auto) 1.6 %; Neutrophils # (auto) 4.48 K/uL (1.40-6.50); Platelet Count 220 K/uL (130-400); RDW Standard Deviation 49.5 fL (36.4-46.3); Red Blood Count 3.23 M/uL (4.20-5.40); White Blood Count 4.98 K/ul (4.8-10.8)
[2024-02-12 07:02] LABS: BUN Creatinine Ratio 13.5 (10-20); Calcium 8.8 mg/dl (8.6-10.3); Creatinine Clr Calc Pharmacy 79.3 ml/min; Potassium 4.2 mmol/L (3.5-5.1)
--- NOTE | 2024-02-12 07:42 | Electrocardiogram Report ---
Test Reason : Blood Pressure : */* mmHG Vent. Rate : 93 BPM Atrial Rate : * BPM P-R Int : * ms QRS Dur : 86 ms QT Int : 378 ms P-R-T Axes : * 16 33 degrees QTcB Int : 469 ms Atrial fibrillation with premature ventricular or aberrantly conducted complexes Nonspecific ST abnormality Abnormal ECG When compared with ECG of 03-Feb-2024 12:26, Nonspecific T wave abnormality no longer evident in Anterolateral leads Confirmed by Moisés Mancilla ([id number]) on 02/12/2024 7:42:11 AM Referred By: REFERRED SELF Confirmed By: Moisés Mancilla
[2024-02-12] MEDS: DOXYCYCLINE HYCLATE 100 MG CAP PO SCH (08:26)
--- NOTE | 2024-02-12 11:46 | Hospitalist Progress Note ---
Date of Service February 12, 2024 Assessment & Plan (1) Right leg weakness: Plan: Right lower extremity weakness 2 weeks, with worsening in the last 2 days. Intermittent numbness on the back of her right calf, sensation is intact at time of provider assessment. On hospice provider admitting assessment did have some strength asymmetry 4+/5 hip flexion, ankle dorsiflexion/plantarflexion compared to 5/5 on the left. No urinary change although patient has had incontinence of urine for around 3 months worsen following her urolologic stent placement. No cranial nerve deficits Patient does have a history of sciatica with some pain, but notes her current weakness is not pain limited and feels different and notes that she feels like she has to drag her legs at time CThead without acute findings CTL-spine: No acute fracture or subluxation. Multilevel degenerative disc disease. Suboptimal central canal exam by technique. Bilateral ureteral stents are in place, moderate right hydro. Nonobstructing small right renal pelvis calculus, moderate dilation of the renal pelvis partially imaged. CThead: No acute findings. 2 weeks of symptoms with a slowly progressive and intermittently waxing waning, with no other neurologic or cranial nerve deficits inconsistent with CVA MRIL-spine with concern for critical cord compression at T10, patient placed on dexamethasone 10 mg and stat thoracic MRI ordered MRIT-spine shows focal spinal canal stenosis at T8 1011 secondary to thickened ligamentum flavum, increased signal in the distal cord possibly reflective of artifact On reassessment 02/11 patient has improved strength in her right lower extremity no sensory deficits. She is continent of urine. Given focal stenosis and cord signal change spine has been consulted for evaluation Reviewed with orthopedic spine. Appreciate review of images and recommendations. Will continue with PT/OT assessments, steroids at this time. No surgical intervention is currently indicated. May follow-up with pain management as outpatient if she has ongoing symptoms (2) A-fib: Plan: A-fib EKG A-fib without territorial ST/T wave changes Metoprolol continue Adequate rate at time of admission no chest pain or chest pressure at any point Dabigatran resumed, no surgical intervention is anticipated at this time (3) History of cystoscopy: Plan: Indwelling ureteral stents With recent cystoscopy and clot evacuation due to right ureteral calculus. Right stent exchanged, left ureteral stent placed . Patient was to maintain stents for 1-2 weeks and then to follow-up with urology as outpatient for removal Creatinine is at baseline 1.09, stents remain in place No UTI symptoms on admission or on reassessment No acute change in management Admission and Anticipated Discharge Date Admission Date: February 11, 2024 Harper Ruiz is seen at the bedside. She reports he thinks that the steroids have helped improve her strength. She has not yet worked vigorously with PT but with assistance to get out of bed and feels that she has had improvement in her right dragging foot very slightly. No numbness or lack of sensation in the right leg today. She has been continent of urine today. No fevers chills or sweats. She reports she has not yet tried to send any type of steroids physical therapy so was not sure how much her function has actually improved, but is optimistic that she think she feels better than she did yesterday. Tolerated MRI okay last night. Physical Exam Physical Exam: General: A&Ox3. NAD. Cooperative. HEENT: Atraumatic, normocephalic. Pulm: CTAB A&P. -wheezes, -rales, -rhonchi. Symmetrical chest rise. No increased work of breathing. No respiratory distress. Cardiac: RRR, -mrg. Radial pulses intact and symmetrical. Abdominal: Nontender, nondistended, soft. BS present. Extremities: Bilateral lower extremity edema. 5/5 hip flexion, ankle dorsiflexion/plantarflexion bilaterally today. No deficits to soft touch. This is slightly improved compared to 4+/5 hip flexion on provider exam yesterday, and straight leg raise again does not induce any radicular symptoms. Results & Data Results & Data Vital Signs (Past 12 Hours) Vital Signs Temp Pulse Resp BP Pulse Ox O2 Del Method 02/12/24 07:17 36.4 C L 100 H 18 131/70 95 Room Air PG Care Time/CCT Total # of Minutes Spent Total Time Spent with Patient: Total time spent is greater than 50% in coordination of care (as documented) at patient's floor/unit and/or counseling patient: Coding Level of Care Code 18793 SUB INP/OBS CARE 3/50MIN Diagnoses Right leg weakness R29.898 A-fib I48.91 History of cystoscopy Z98.890
--- NOTE | 2024-02-12 14:03 | Orthopedic Consultation ---
Date of Service February 12, 2024 History of Present Illness Reason for Consultation: Right leg pain, 2 weeks duration. Requesting Physician: . Attending Physician: Eliezer Reich MD 63-year-old female with a past medical history of morbid obesity, sepsis, hydronephrosis, renal colic, A-fib on dabigatran who presents to the ER for weakness in the right leg which has been present for the past 2 weeks. She notes that she has been living upstairs as she is unable to get down the steps. She feels like she is dragging her leg at times, she has numbness at the base of the foot and posteriorly in the calf. She notes 2 days ago she felt a pop while putting on her shoe and symptoms have been worse since then. The patient notes that the pain starts in the right lumbosacral region going down the posterior thigh, she is unsure whether it was down the posterior aspect of the leg. Denies any headache or change in vision. No chest pain or shortness of breath. No nausea vomiting or diarrhea. Patient notes today that her symptoms have improved since admission, she is able to get her still feels some weakness in the right leg. Exam reveals the patient to be morbidly no specific areas of pain in the lower spine. Left leg motor is relatively unremarkable, but she does have some difficulty extending the left big toe beyond neutral position, but ankle plantar dorsiflexion is intact as is knee flexion extension strength and hip strength. Right leg reveals the patient to have matching strength. EHL ankle dorsiflexion, knee extension is also intact that 4+ to 5 out of 5, with only slight decrease hip flexion strength to the right side 4+ range. While the patient was standing, she can elevate the leg but it did cause pain the lower lumbar spine. Deep tendon reflexes were not obtainable did not have any clonus, negative Babinski. Review of both thoracic and lumbar MRI images and CT scan February 11, 2024 was performed, this is my separate interpretation, this reveals the patient moderate canal stenosis at T10-11 due to thickened ligamentum flavum, I think there is severe stenosis. There is some limited findings in the cord indicating pot entially a signal change but it is indeterminate due to imaging quality. Review of the MRI images lumbar spine reveals the patient's main findings degenerative changes a pars defect at L5-S1 but no spondylolisthesis is present, of note is a right foraminal disc herniation with compression on L5 nerve root. The left foramen is mild to moderate stenosis at L5-S1, there is a left disc protrusion at L3-4 with some resultant moderate foraminal stenosis at that level on the left. Otherwise degenerative changes noted involving the discs in the lower lumbar spine and facets. Impression: Right leg combination pain, numbness tingling weakness noted by the patient increasing over the past 2 weeks with difficulties with ambulation and elevating right leg. Plan: Today I spent time talking with the patient, I did review with her that she does have some developing narrowing in the lower thoracic spine but I feel this is moderate in nature and is not the cause of her symptoms, I think she has a combination of L5 radicular symptoms but also some other symptomatology but does not quite match up to the imaging studies. At this time the patient is notably improved with steroids and mobilization with appropriate pain medication. I recommend this continue with physical therapy and strengthening, eventual evaluation by pain management if the symptoms do not resolve in the near future. I do not feel any operative intervention is necessary at this time. Allergies Allergy/AdvReac Type Severity Reaction Status Date / Time bacitracin Allergy Intermediate Hives Verified 02/03/24 11:54 ceftriaxone Allergy Intermediate Rash Verified 02/03/24 11:54 neomycin Allergy Intermediate Hives Verified 02/03/24 11:54 polymyxin B Allergy Intermediate Hives Verified 02/03/24 11:54 Home Medications Medication Instructions Recorded Confirmed Type doxycycline hyclate 100 mg capsule 100 mg PO QAM #90 caps 11/12/22 02/11/24 Rx metoprolol tartrate 100 mg tablet 100 mg PO BID #180 tabs 02/10/23 02/11/24 Rx cholecalciferol (vitamin D3) 50 50 mcg PO QAM #90 caps 02/23/23 02/11/24 Rx mcg (2,000 unit) capsule (Vitamin D3) miconazole nitrate 2 % topical 1 applic EXT DAILY PRN skin 11/23/23 02/11/24 Rx powder (Desenex) cleansing #85 grams dabigatran etexilate 150 mg 150 mg PO BID #180 caps 12/15/23 02/11/24 Rx capsule (Pradaxa) tamsulosin 0.4 mg capsule 0.4 mg PO HS #30 caps 02/03/24 02/11/24 Rx Past Med/Surg History Problem List (Updated 02/12/24 @ 00:08 by Background [place]) High serum chloride (Acute) Anemia (Acute) Leg weakness (Acute) Right leg weakness Hip pain 11/19/23 Hip pain 11/19/23 Oral herpes simplex infection 11/15/23 Hyperkalemia Acute kidney injury 11/11/23 Morbid obesity UTI (urinary tract infection) Renal colic (Acute) 11/10/23 Sepsis (Acute) Sepsis Right ureteral calculus Hydronephrosis of right kidney Degenerative arthritis of knee, bilateral Hematuria, gross Nephrolithiasis (Chronic) Mixed incontinence (Chronic) Encounter for screening for malignant neoplasm of rectum Encounter for screening for malignant neoplasm of colon Lymphedema LE, stable per pt Encounter for pre-operative examination Anticoagulant long-term use (Acute) Impaired fasting glucose (Acute) Vitamin D deficiency (Acute) Preop testing Ureterocele Right ovarian cyst Hematuria Incontinence A-fib Permanent, on pradaxa, monitored by PCP Left leg cellulitis (Acute) 10/30/17 Skin problem (Chronic) 03/23/17 History of cellulitis HTN (hypertension) (Chronic) Left leg cellulitis (Acute) 12/31/16 Medical History (Updated 02/12/24 @ 00:08 by Background Da[place]) Difficult intubation D&C, hysteroscopy: 03/13/19: Grade 1 view, Glidescope 3.0, ETT 7.0 at [facility] Right ovarian cyst Mixed stress and urge incontinence Lymphedema bilateral lower extremity Degenerative arthritis History of sepsis Atrial fibrillation pradaxa Morbid obesity with BMI of 50.0-59.9, adult History of COVID-19 03/2020 > symptoms at time of exhaustion, achiness > resolved Kidney stones History of cellulitis hx of recurrent cellulitis/no issues x 1+ years on maintenance doxycycline Hypertension Surgical History History of cystoscopy Cystoscopy, urethral dilation, ureteral stone extraction, stent (01/15/20): MAC at [facility] History of dilatation and curettage D&C, hysteroscopy (03/13/19): Grade 1 view, Glidescope 3.0, ETT 7.0 at [facility] Melanoma s/p excision (RLE)-10-15 YRS AGO BCC (basal cell carcinoma of skin) s/p excision (arm) H/O tooth extraction History of surgery melanoma removal and skin graft right LE History of mandibular surgery No ROM limitations Hx of colonoscopy Family History Mother Diabetes Hypertension Grandfather Myocardial infarction Other No family history of adverse response to anesthesia Denies family history of Ovarian cancer Prostate cancer Breast cancer Colorectal cancer Social History Smoking Status: Never smoker Second Hand Exposure: No; Do You Dip or Chew Tobacco: No; Hx Alcohol Use: Yes Alcohol type: wine Hx Substance Use: No Preferred Language: Maltese Communication Ability: Effective Visual Impairment: No Limitations Photoengraving Apprentice Required: No Beliefs That Will Affect Care: None marital status: Single Current Living Situation: Alone Current Living Situation Comment: lives with mother current occupational status: employed 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 Other Information That Helps Us Care for You: No Feels Safe at Home: Yes Safety Concerns: Feels Safe At This Time Childhood Exposure to Second-Hand Smoke: No Diet: regular caffeine: Yes Dental Care, Regularly: Yes Seatbelt Use: always Sunscreen Use: Yes Assistive Devices: Cane and Walker Review of Systems All systems reviewed & are unremarkable except as noted in HPI & below. Physical Exam . Results & Data Results & Data Laboratory Results . Diagnostic Findings . PG Care Time/CCT Total # of Minutes Spent Total Time Spent with Patient: Total time spent is greater than 50% in coordination of care (as documented) at patient's floor/unit and/or counseling patient: Coding Level of Care Code 86110 IN/OBS CONSULT LVL 3,45M
[2024-02-12] MEDS: dexAMETHasone 4 MG TAB PO SCH (17:11)
[2024-02-13 08:58] LABS: BUN Creatinine Ratio 19.2 (10-20); Calcium 8.8 mg/dl (8.6-10.3); Creatinine Clr Calc Pharmacy 79.3 ml/min; Potassium 4.3 mmol/L (3.5-5.1)
[2024-02-13 09:42] LABS: Hematocrit (blood only) 29.5 % (37.0-47.0); Immature Granulocytes # (auto) 0.03 K/uL (0.01-0.20); Immature Granulocytes % (auto) 0.6 %; Lymphocytes # (auto) 0.36 K/uL (1.20-3.40); Lymphocytes % (auto) 7.6 %; Mean Corpuscular Hemoglobin 29.3 pg (25.0-34.0); Mean Corpuscular Hgb Conc 30.5 g/dL (32.0-36.0); Mean Corpuscular Volume 96.1 fL (80.0-100.0); Mean Platelet Volume 10.2 fL (9.4-12.4); Monocytes # (auto) 0.16 K/uL (0.11-0.59); Monocytes % (auto) 3.4 %; Neutrophils # (auto) 4.18 K/uL (1.40-6.50); Neutrophils % (auto) 88.4 %; Platelet Count 227 K/uL (130-400); RDW Standard Deviation 49.4 fL (36.4-46.3); Red Blood Count 3.07 M/uL (4.20-5.40); White Blood Count 4.73 K/ul (4.8-10.8)
--- NOTE | 2024-02-13 12:15 | Hospitalist Progress Note ---
Date of Service February 13, 2024 Assessment & Plan (1) Right leg weakness: Plan: Right lower extremity weakness 2 weeks, with worsening in the last 2 days. Intermittent numbness on the back of her right calf, sensation is intact at time of provider assessment. On hospice provider admitting assessment did have some strength asymmetry 4+/5 hip flexion, ankle dorsiflexion/plantarflexion compared to 5/5 on the left. No urinary change although patient has had incontinence of urine for around 3 months worsen following her urolologic stent placement. No cranial nerve deficits Patient does have a history of sciatica with some pain, but notes her current weakness is not pain limited and feels different and notes that she feels like she has to drag her legs at time CThead without acute findings CTL-spine: No acute fracture or subluxation. Multilevel degenerative disc disease. Suboptimal central canal exam by technique. Bilateral ureteral stents are in place, moderate right hydro. Nonobstructing small right renal pelvis calculus, moderate dilation of the renal pelvis partially imaged. CThead: No acute findings. 2 weeks of symptoms with a slowly progressive and intermittently waxing waning, with no other neurologic or cranial nerve deficits inconsistent with CVA MRIL-spine with concern for critical cord compression at T10, patient placed on dexamethasone 10 mg and stat thoracic MRI ordered MRIT-spine shows focal spinal canal stenosis at T8 1011 secondary to thickened ligamentum flavum, increased signal in the distal cord possibly reflective of artifact On reassessment 02/11 patient has improved strength in her right lower extremity no sensory deficits. She is continent of urine. Given focal stenosis and cord signal change spine has been consulted for evaluation Reviewed with orthopedic spine. Appreciate review of images and recommendations. Will continue with PT/OT assessments, steroids at this time. No surgical intervention is currently indicated. May follow-up with pain management as outpatient if she has ongoing symptoms Seen by PT/OT. Still with significant difficulty ascending stairs limiting her ability to return home where she has stairs in her home to get to the bathroom. Rehab pending. Steroids continued, 6 mg daily for an additional 5 days Patient has a significant lymphedema component, additional weight also likely inhibiting her strength and overall function however her right lower extremity asymmetric weakness appears superimposed on this. Agree with rehab continue treatment. Continue lymphedema precautions including elevating legs/wrapping as able (2) A-fib: Plan: A-fib EKG A-fib without territorial ST/T wave changes Metoprolol continue Adequate rate at time of admission no chest pain or chest pressure at any point Dabigatran resumed, no surgical intervention is anticipated at this time (3) History of cystoscopy: Plan: Indwelling ureteral stents With recent cystoscopy and clot evacuation due to right ureteral calculus. Right stent exchanged, left ureteral stent placed . Patient was to maintain stents for 1-2 weeks and then to follow-up with urology as outpatient for removal Discussed with urology as her removal appointment was on Wednesday. Do not recommend attempted removal at bedside, recommend following up in the office and will have appointment rescheduled. She should receive a call about her rescheduled appointment this coming week. Creatinine is at baseline, stents remain in place No UTI symptoms on admission or on reassessment No acute change in management Admission and Anticipated Discharge Date Admission Date: February 11, 2024 Harper Ruiz is seen at the bedside. She reports that she worked with PT/OT this morning, feels better but still has limited strength in her right foot and difficulty flexing at the hip. Is not able to ambulate stairs safely at this time, and she is required to ascend stairs to make it to the bathroom in her home. Otherwise she has no acute concerns. No fever chills or sweats. She is continent of urine today. Denies numbness in the legs. Insurance Auth and placement pending. Physical Exam Physical Exam: General: A&Ox3. NAD. Cooperative. HEENT: Atraumatic, normocephalic. Pulm: CTAB A&P. -wheezes, -rales, -rhonchi. Symmetrical chest rise. No increased work of breathing. No respiratory distress. Cardiac: irir, -mrg. Radial pulses intact and symmetrical. Abdominal: Nontender, nondistended, soft. BS present. Extremities: Bilateral upper and lower extremity lymphedema .Sensation and strength is grossly intact in hands and feet bilaterally, some asymmetry to right hip flexion but grossly 5/5 strength. Results & Data Results & Data Vital Signs (Past 12 Hours) Vital Signs Temp Pulse Resp BP Pulse Ox O2 Del Method 02/13/24 11:08 36.5 C 77 17 148/72 H 96 Room Air 02/13/24 07:31 36.3 C L 72 17 122/68 97 Room Air PG Care Time/CCT Total # of Minutes Spent Total Time Spent with Patient: Total time spent is greater than 50% in coordination of care (as documented) at patient's floor/unit and/or counseling patient: Coding Level of Care Code 51999 SUB INP/OBS CARE 2/35MIN Diagnoses Right leg weakness R29.898 A-fib I48.91 History of cystoscopy Z98.890
[2024-02-13] MEDS: CHOLECALCIFEROL 125 MCG (5,000 UNITS) TAB PO SCH (12:52)
[2024-02-14 06:31] LABS: Hematocrit (blood only) 28.8 % (37.0-47.0); Hemoglobin 8.9 g/dl (12.0-16.0); Immature Granulocytes # (auto) 0.04 K/uL (0.01-0.20); Immature Granulocytes % (auto) 0.8 %; Lymphocytes # (auto) 0.45 K/uL (1.20-3.40); Lymphocytes % (auto) 8.9 %; Mean Corpuscular Hemoglobin 29.6 pg (25.0-34.0); Mean Corpuscular Hgb Conc 30.9 g/dL (32.0-36.0); Mean Corpuscular Volume 95.7 fL (80.0-100.0); Monocytes # (auto) 0.28 K/uL (0.11-0.59); Monocytes % (auto) 5.5 %; Neutrophils # (auto) 4.31 K/uL (1.40-6.50); Neutrophils % (auto) 84.8 %; Platelet Count 205 K/uL (130-400); RDW Standard Deviation 48.8 fL (36.4-46.3); Red Blood Count 3.01 M/uL (4.20-5.40); White Blood Count 5.08 K/ul (4.8-10.8)
[2024-02-14 06:46] LABS: BUN Creatinine Ratio 21.6 (10-20); Calcium 8.7 mg/dl (8.6-10.3); Creatinine Clr Calc Pharmacy 80.8 ml/min; Potassium 4.4 mmol/L (3.5-5.1)
--- NOTE | 2024-02-14 12:17 | Hospitalist Progress Note ---
Date of Service February 14, 2024 Assessment & Plan (1) Right leg weakness: Plan: Right greater than left lower extremity weakness due to thoracic spine stenosis. Improving with steroid therapy. Continue oral Decadron for now. Continue OT and PT while hospitalized. Appreciate orthopedic spine consultation and recommendations. (2) A-fib: Plan: Chronic. Rate controlled. Continue dabigatran. Telemetry (3) History of cystoscopy: Plan: History of nephrolithiasis with bilateral ureteral stents. Recent cystoscopy and clot evacuation due to right ureteral calculus. Right stent exchanged, left ureteral stent placed. Outpatient urology follow-up Plan Discharge to [facility] when arrangements are finalized. She is medically stable for discharge Admission and Anticipated Discharge Date Admission Date: February 11, 2024 Subjective Alert and oriented. No distress. She remains on oral steroid therapy. Known multilevel thoracic spinal stenosis producing right lower extremity weakness. OT and PT both recommend rehab placement until her condition improved since she is able to ambulate better. She is medically stable for discharge. Review of Systems 2 Review of Systems: Constitutionalno fever or chills ENTno blurred vision, no double vision, no epistaxis, no sore throat Respiratoryno cough, no wheezing, no shortness of breath Cardiacno palpitations, no chest pain, no syncope Rafael nausea, vomiting, diarrhea, melena, hematochezia GUno urinary retention, no urinary incontinence, no dysuria, no hematuria Musculoskeletalno joint pain, no muscle tenderness. Right lower extremity greater than left lower extremity weakness producing ambulatory dysfunction Skinno bruising, no rashes, no pruritus Neuroright greater than left lower extremity weakness Psychno depression, no anxiety Physical Exam 2 Physical Exam: General-alert and oriented x3, no fever, no chills HEENT-head atraumatic and normocephalic, pupils equal and reactive to light, extraocular muscles intact Neck-no lymphadenopathy or thyromegaly, trachea midline Chest-clear to auscultation. No rales, wheezing or rhonchi Cardiac-regular rate and rhythm, normal S1 and S2 Abdomen-normal bowel sounds, no hepatosplenomegaly Extremities-no cyanosis, clubbing, or edema Neuro-cranial nerves II through XII intact, right greater than left lower extremity weakness Psych -normal affect, normal mood Results & Data Results & Data Vital Signs (Past 12 Hours) Vital Signs Temp Pulse Resp BP Pulse Ox O2 Del Method 02/14/24 07:13 36.5 C 65 16 134/61 96 Room Air Laboratory Results 02/14/24 05:38 02/14/24 05:38 PG Care Time/CCT Total # of Minutes Spent Total Time Spent with Patient: Total time spent is greater than 50% in coordination of care (as documented) at patient's floor/unit and/or counseling patient: Coding Level of Care Code 79610 SUB INP/OBS CARE 2/35MIN Diagnoses Right leg weakness R29.898 A-fib I48.91 History of cystoscopy Z98.890
--- NOTE | 2024-02-15 15:41 | Hospitalist Progress Note ---
Date of Service February 15, 2024 Assessment & Plan (1) Right leg weakness: Plan: Right greater than left lower extremity weakness due to thoracic spine stenosis. Improving with steroid therapy. Continue oral Decadron for now. Continue OT and PT while hospitalized. Appreciate orthopedic spine consultation and recommendations. (2) A-fib: Plan: Chronic. Rate controlled. Continue dabigatran. Telemetry (3) History of cystoscopy: Plan: History of nephrolithiasis with bilateral ureteral stents. Recent cystoscopy and clot evacuation due to right ureteral calculus. Right stent exchanged, left ureteral stent placed. Outpatient urology follow-up Plan Discharge to [facility] when arrangements are finalized. Probably this or Wednesday. She is medically stable for discharge Admission and Anticipated Discharge Date Admission Date: February 11, 2024 Subjective Alert and oriented. No new problems. Case management says that [facility] can accept her either or Wednesday this week Review of Systems 2 Review of Systems: Constitutionalno fever or chills ENTno blurred vision, no double vision, no epistaxis, no sore throat Respiratoryno cough, no wheezing, no shortness of breath Cardiacno palpitations, no chest pain, no syncope Rafael nausea, vomiting, diarrhea, melena, hematochezia GUno urinary retention, no urinary incontinence, no dysuria, no hematuria Musculoskeletalno joint pain, no muscle tenderness. Right lower extremity greater than left lower extremity weakness producing ambulatory dysfunction Skinno bruising, no rashes, no pruritus Neuroright greater than left lower extremity weakness Psychno depression, no anxiety Physical Exam 2 Physical Exam: General-alert and oriented x3, no fever, no chills HEENT-head atraumatic and normocephalic, pupils equal and reactive to light, extraocular muscles intact Neck-no lymphadenopathy or thyromegaly, trachea midline Chest-clear to auscultation. No rales, wheezing or rhonchi Cardiac-regular rate and rhythm, normal S1 and S2 Abdomen-normal bowel sounds, no hepatosplenomegaly Extremities-no cyanosis, clubbing, or edema Neuro-cranial nerves II through XII intact, right greater than left lower extremity weakness Psych -normal affect, normal mood Results & Data Results & Data Vital Signs (Past 12 Hours) Vital Signs Temp Pulse Resp BP Pulse Ox O2 Del Method 02/15/24 14:19 36.9 C 90 17 133/77 98 Room Air 02/15/24 08:54 36.6 C 64 16 136/79 99 Room Air Laboratory Results 02/14/24 05:38 02/14/24 05:38 PG Care Time/CCT Total # of Minutes Spent Total Time Spent with Patient: Total time spent is greater than 50% in coordination of care (as documented) at patient's floor/unit and/or counseling patient: Coding Level of Care Code 47373 SUB INP/OBS CARE 2/35MIN Diagnoses Right leg weakness R29.898 A-fib I48.91 History of cystoscopy Z98.890
[2024-02-16 08:48] LABS: Hematocrit (blood only) 30.2 % (37.0-47.0); Hemoglobin 9.5 g/dl (12.0-16.0); Immature Granulocytes # (auto) 0.04 K/uL (0.01-0.20); Immature Granulocytes % (auto) 0.8 %; Lymphocytes # (auto) 0.52 K/uL (1.20-3.40); Lymphocytes % (auto) 10.3 %; Mean Corpuscular Hemoglobin 29.1 pg (25.0-34.0); Mean Corpuscular Hgb Conc 31.5 g/dL (32.0-36.0); Mean Corpuscular Volume 92.6 fL (80.0-100.0); Monocytes # (auto) 0.47 K/uL (0.11-0.59); Monocytes % (auto) 9.3 %; Neutrophils # (auto) 4.04 K/uL (1.40-6.50); Neutrophils % (auto) 79.6 %; Platelet Count 210 K/uL (130-400); RDW Coefficient of Variation 13.7 % (11.5-14.5); RDW Standard Deviation 46.5 fL (36.4-46.3); Red Blood Count 3.26 M/uL (4.20-5.40); White Blood Count 5.07 K/ul (4.8-10.8)
[2024-02-16 09:15] LABS: BUN Creatinine Ratio 26.3 (10-20); Calcium 8.6 mg/dl (8.6-10.3); Creatinine Clr Calc Pharmacy 83.3 ml/min; Potassium 4.3 mmol/L (3.5-5.1)
--- NOTE | 2024-02-16 13:13 | Hospitalist Progress Note ---
Date of Service February 16, 2024 Assessment & Plan (1) Right leg weakness: Plan: Right greater than left lower extremity weakness due to thoracic spine stenosis. Improving with steroid therapy. Continue oral Decadron for now. Will eventually discharge her on a tapering dose. Continue OT and PT while hospitalized. Appreciate orthopedic spine consultation and recommendations. (2) A-fib: Plan: Chronic. Rate controlled. Continue dabigatran. Telemetry (3) History of cystoscopy: Plan: History of nephrolithiasis with bilateral ureteral stents. Recent cystoscopy and clot evacuation due to right ureteral calculus. Right stent exchanged, left ureteral stent placed. Outpatient urology follow-up Plan Discharge to [facility] when arrangements are finalized. Hopefully tomorrow, February 16. She is medically stable for discharge Admission and Anticipated Discharge Date Admission Date: February 11, 2024 Subjective Alert and oriented. No new problems. Lab testing done today, February 15, looks good. Hopefully she can go to [facility] tomorrow, February 16 Review of Systems 2 Review of Systems: Constitutionalno fever or chills ENTno blurred vision, no double vision, no epistaxis, no sore throat Respiratoryno cough, no wheezing, no shortness of breath Cardiacno palpitations, no chest pain, no syncope Rafael nausea, vomiting, diarrhea, melena, hematochezia GUno urinary retention, no urinary incontinence, no dysuria, no hematuria Musculoskeletalno joint pain, no muscle tenderness. Right lower extremity greater than left lower extremity weakness producing ambulatory dysfunction Skinno bruising, no rashes, no pruritus Neuroright greater than left lower extremity weakness Psychno depression, no anxiety Physical Exam 2 Physical Exam: General-alert and oriented x3, no fever, no chills HEENT-head atraumatic and normocephalic, pupils equal and reactive to light, extraocular muscles intact Neck-no lymphadenopathy or thyromegaly, trachea midline Chest-clear to auscultation. No rales, wheezing or rhonchi Cardiac-regular rate and rhythm, normal S1 and S2 Abdomen-normal bowel sounds, no hepatosplenomegaly Extremities-no cyanosis, clubbing, or edema Neuro-cranial nerves II through XII intact, right greater than left lower extremity weakness Psych -normal affect, normal mood Results & Data Results & Data Vital Signs (Past 12 Hours) Vital Signs Temp Pulse Resp BP Pulse Ox O2 Del Method 02/16/24 07:48 36.5 C 57 L 18 129/81 98 Room Air Laboratory Results 02/16/24 08:04 02/16/24 08:04 PG Care Time/CCT Total # of Minutes Spent Total Time Spent with Patient: Total time spent is greater than 50% in coordination of care (as documented) at patient's floor/unit and/or counseling patient: Coding Level of Care Code 65749 SUB INP/OBS CARE 2/35MIN Diagnoses Right leg weakness R29.898 A-fib I48.91 History of cystoscopy Z98.890
--- NOTE | 2024-02-17 13:14 | Hospitalist Progress Note ---
Date of Service February 17, 2024 Assessment & Plan (1) Right leg weakness: Plan: Right greater than left lower extremity weakness due to thoracic spine stenosis. Improving with steroid therapy. Continue oral Decadron for now. Dosage down titrated from 6 mg to 4 mg daily today, February 16. Will eventually discharge her on a tapering dose. Continue OT and PT while hospitalized. Appreciate orthopedic spine consultation and recommendations. (2) A-fib: Plan: Chronic. Rate controlled. Continue dabigatran. Telemetry (3) History of cystoscopy: Plan: History of nephrolithiasis with bilateral ureteral stents. Recent cystoscopy and clot evacuation due to right ureteral calculus. Right stent exchanged, left ureteral stent placed. Outpatient urology follow-up Plan Discharge to [facility] when arrangements are finalized. Admission and Anticipated Discharge Date Admission Date: February 11, 2024 Subjective Stable. No new problems. Dexamethasone dosage down titrated today. Awaiting placement at [facility]. Review of Systems 2 Review of Systems: Constitutionalno fever or chills ENTno blurred vision, no double vision, no epistaxis, no sore throat Respiratoryno cough, no wheezing, no shortness of breath Cardiacno palpitations, no chest pain, no syncope Rafael nausea, vomiting, diarrhea, melena, hematochezia GUno urinary retention, no urinary incontinence, no dysuria, no hematuria Musculoskeletalno joint pain, no muscle tenderness. Right lower extremity greater than left lower extremity weakness producing ambulatory dysfunction Skinno bruising, no rashes, no pruritus Neuroright greater than left lower extremity weakness Psychno depression, no anxiety Physical Exam 2 Physical Exam: General-alert and oriented x3, no fever, no chills HEENT-head atraumatic and normocephalic, pupils equal and reactive to light, extraocular muscles intact Neck-no lymphadenopathy or thyromegaly, trachea midline Chest-clear to auscultation. No rales, wheezing or rhonchi Cardiac-regular rate and rhythm, normal S1 and S2 Abdomen-normal bowel sounds, no hepatosplenomegaly Extremities-no cyanosis, clubbing, or edema Neuro-cranial nerves II through XII intact, right greater than left lower extremity weakness Psych -normal affect, normal mood Results & Data Results & Data Vital Signs (Past 12 Hours) Vital Signs Temp Pulse Resp BP Pulse Ox O2 Del Method 02/17/24 08:30 Room Air 02/17/24 07:30 36.3 C L 68 16 161/79 H 97 Room Air Laboratory Results 02/16/24 08:04 02/16/24 08:04 PG Care Time/CCT Total # of Minutes Spent Total Time Spent with Patient: Total time spent is greater than 50% in coordination of care (as documented) at patient's floor/unit and/or counseling patient: Coding Level of Care Code 04707 SUB INP/OBS CARE 2/35MIN Diagnoses Right leg weakness R29.898 A-fib I48.91 History of cystoscopy Z98.890
[2024-02-18] MEDS: dexAMETHasone 4 MG TAB PO SCH (08:50)
--- NOTE | 2024-02-18 12:57 | Hospitalist Progress Note ---
Date of Service February 18, 2024 Assessment & Plan (1) Right leg weakness: Plan: Right greater than left lower extremity weakness due to thoracic spine stenosis. Improving with steroid therapy. Continue oral Decadron for now. Dosage down titrated from 6 mg to 4 mg daily on February 16. Will eventually discharge her on a tapering dose. Continue OT and PT while hospitalized. Appreciate orthopedic spine consultation and recommendations. (2) A-fib: Plan: Chronic. Rate controlled. Continue dabigatran. Telemetry (3) History of cystoscopy: Plan: History of nephrolithiasis with bilateral ureteral stents. Recent cystoscopy and clot evacuation due to right ureteral calculus. Right stent exchanged, left ureteral stent placed. Outpatient urology follow-up Plan Discharge to [facility] when arrangements are finalized. Admission and Anticipated Discharge Date Admission Date: February 11, 2024 Subjective Alert and oriented. No new problems. Awaiting insurance approval for SNF placement Review of Systems 2 Review of Systems: Constitutionalno fever or chills ENTno blurred vision, no double vision, no epistaxis, no sore throat Respiratoryno cough, no wheezing, no shortness of breath Cardiacno palpitations, no chest pain, no syncope Rafael nausea, vomiting, diarrhea, melena, hematochezia GUno urinary retention, no urinary incontinence, no dysuria, no hematuria Musculoskeletalno joint pain, no muscle tenderness. Right lower extremity greater than left lower extremity weakness producing ambulatory dysfunction Skinno bruising, no rashes, no pruritus Neuroright greater than left lower extremity weakness Psychno depression, no anxiety Physical Exam 2 Physical Exam: General-alert and oriented x3, no fever, no chills HEENT-head atraumatic and normocephalic, pupils equal and reactive to light, extraocular muscles intact Neck-no lymphadenopathy or thyromegaly, trachea midline Chest-clear to auscultation. No rales, wheezing or rhonchi Cardiac-regular rate and rhythm, normal S1 and S2 Abdomen-normal bowel sounds, no hepatosplenomegaly Extremities-marked chronic appearing edema bilateral lower extremities from chronic venous insufficiency Neuro-cranial nerves II through XII intact, right greater than left lower extremity weakness Psych -normal affect, normal mood Results & Data Results & Data Vital Signs (Past 12 Hours) Vital Signs Temp Pulse Resp BP Pulse Ox O2 Del Method 02/18/24 08:30 Room Air 02/18/24 07:16 36.5 C 63 16 149/76 H 100 Room Air Laboratory Results 02/16/24 08:04 02/16/24 08:04 PG Care Time/CCT Total # of Minutes Spent Total Time Spent with Patient: Total time spent is greater than 50% in coordination of care (as documented) at patient's floor/unit and/or counseling patient: Coding Level of Care Code 68635 SUB INP/OBS CARE 2/35MIN Diagnoses Right leg weakness R29.898 A-fib I48.91 History of cystoscopy Z98.890
[2024-02-18 20:28] VITALS: RESP 18
[2024-02-19 07:24] VITALS: BP 128/82; PULSE 66; TEMP 98.2; O2SAT 93
--- NOTE | 2024-02-19 07:32 | Discharge Summary ---
Discharge Summary Date of Service February 19, 2024 Principal Dx & Hospital Course #1 = Principal Diagnosis (1) Right leg weakness: Right greater than left lower extremity weakness due to thoracic spine stenosis. Improving with steroid therapy. Continue oral Decadron for now. Dosage down titrated from 6 mg to 4 mg daily on February 16. Will discharge her on a tapering dose. Continue OT and PT while hospitalized. Appreciate orthopedic spine consultation and recommendations. (2) A-fib: Chronic. Rate controlled. Continue dabigatran. Telemetry (3) History of cystoscopy: History of nephrolithiasis with bilateral ureteral stents. Recent cystoscopy and clot evacuation due to right ureteral calculus. Right stent exchanged, left ureteral stent placed. Outpatient urology follow-up Plan Discharge to [facility] today, February 18 Admission HPI Per Admitting Provider 63yo F morbidly obese F with RLE weakness. Weak x2 weeks, worse last 2 days. REports she felt a pop after putting her shoe on and subsequently with foot numbness difficulty with hip flexion. Ankle dorsiflexion/plantarflexion are intact per ER report. Patient recommended for admission for PT/OT and placement. CT without reported abnormality although suboptimal for spinal exam. Sara is seen at the bedside. She clarifies that the pop she felt and putting her she 1 was actually in her knee, but separate from this over the last 2 weeks she has had weakness in her right lower extremity. She has had some transient and intermittent numbness in the back of her calf. She has had pain which radiates down the back of her leg intermittently in the past with sciatica, she notes that her current weakness feels different than this and is separate from pain. She has not had any upper extremity weakness. No confusion speech difficulties or any symptoms in her left leg. She reports that the symptoms have slowly progressed over the last 2 weeks but the weakness seems much worse in the last 2 days and she was unable to ambulate down the stairs in her home because of this. She feels like her right leg and foot are dragging somewhat. She reports that she does have chronic incontinence worse in the last 3 months with stent placement but this has not changed. Denies saddle anesthesia. She has had recent admissions with sepsis and UTI, but has had no urinary change no dysuria no fevers chills or sweats and does not currently feel like she has a UTI No chest pain chest pressure at any point She does have chronic lymphedema which has not changed. She does not have pain in the back of her calves currently. She takes Pradaxa twice daily for A-fib stroke prophylaxis and has been compliant with this although she missed her morning dose today due to coming into the hospital. Medical History: Reviewed Medications: Reviewed Surgical History: Reviewed Family history: Reviewed Allergies: Reviewed Social History: No tobacco, rare social ETOH use Code Status: Full Discharge Exam General-alert and oriented x3, no fever, no chills HEENT-head atraumatic and normocephalic, pupils equal and reactive to light, extraocular muscles intact Neck-no lymphadenopathy or thyromegaly, trachea midline Chest-clear to auscultation. No rales, wheezing or rhonchi Cardiac-regular rate and rhythm, normal S1 and S2 Abdomen-normal bowel sounds, no hepatosplenomegaly Extremities-marked chronic appearing edema bilateral lower extremities from chronic venous insufficiency Neuro-cranial nerves II through XII intact, right greater than left lower extremity weakness Psych -normal affect, normal mood Discharge Plan Discharge Items Patient Disposition: Transfer Alf Fac Reason For Visit: RLE, AMBULATORY DYSFUNCTION Discharge Diagnosis: Thoracic spinal stenosis, bilateral lower leg weakness, ambulatory dysfunction Activity: Resume your previous activity Non-emergency contact: Primary Care Provider Call non-emergency contact if: your symptoms worsen Follow-up/Referrals: Angelita Cazares CRNP [Primary Care Provider] - Diet: Regular and Heart Healthy Addtl Attending Provider Instructions: Take Decadron in a tapering dose fashion until off. Pending Studies at Discharge: No Stand-Alone Forms: My [facility] Skilled Items Patient informed of condition?: Yes DNR: No Discharge Level of Care: Skilled Communicable Disease: No Discharge Prognosis: Stable Lines: None Urinary Catheter: No Medications and DC Order Prescriptions: New dexamethasone 2 mg tablet See Rx Instructions .ROUTE .COMPLEX Qty: 10 0RF Rx Instructions: 2 mg orally twice a day for 3 days, then 2 mg once a day for 2 days, then 1 mg daily for 2 days, then stop Continued doxycycline hyclate 100 mg capsule 100 mg PO QAM Qty: 90 3RF metoprolol tartrate 100 mg tablet 100 mg PO BID Qty: 180 3RF cholecalciferol (vitamin D3) [Vitamin D3] 50 mcg (2,000 unit) capsule 50 mcg PO QAM Qty: 90 3RF dabigatran etexilate [Pradaxa] 150 mg capsule 150 mg PO BID Qty: 180 3RF Hold Instructions: recurrent hematuria (has ureteral stent) tamsulosin 0.4 mg capsule 0.4 mg PO HS Qty: 30 0RF miconazole nitrate [Desenex] 2 % Powder 1 applic EXT DAILY PRN (Reason: skin cleansing) Qty: 85 0RF Discharge Orders: Discharge Order (Routine); Ordered 02/19/24 Ordered By: Darrick De La Fuente Admission Data Admit Date/Time: 02/11/24 18:57 Attending Provider: Darrick De La Fuente Admit Provider: Eliezer Reich Primary Care Provider: Angelita Cazares Other Providers: Eliezer Reich; Isaac Jo; [facility] Hospital Stay Data Consultations 02/11/24 18:13 ED Decision to Admit Stat 02/11/24 23:30 Consult Orthopedic Spine Surgery Routine Diagnostic Imagining Performed 02/11/24 16:45 CT head/brain wo con Stat CT lumbar spine wo con Stat 02/11/24 18:31 MRI Lumbar Spine [MR lumbar spine wo con] Urgent 02/11/24 23:25 MR thoracic spine wo con Stat Pending Results Patient Have Any Pending Studies at Discharge: No Discharge Instructions Given to Patient (Per Discharging Provider) Take Decadron in a tapering dose fashion until off. Total Time Total Time Spent Total Time Spent (In Minutes): 45 minutes Coding Level of Care Code 61266 INP/OBS DISCH >30 MIN Diagnoses Right leg weakness R29.898 A-fib I48.91 History of cystoscopy Z98.890
== END 2024-02-19 12:07 | DRG 552 ==
LOC: ED 15:40 → 3N 18:57 → SUATTDRO 18:57 → 3N 20:12